=== PATIENT | female | born 2000 | race Caucasian/White ===

== ENCOUNTER 2019-05-23 00:21 | Inpatient (IN) ==
[2019-05-23 01:19] LABS: Basophils # (auto) 0.02 K/uL (0-0.2); Basophils % (auto) 0.3 %; Eosinophils # (auto) 0.07 K/uL (0-0.5); Eosinophils % (auto) 0.9 %; Hematocrit (blood only) 40.9 % (37-47); Immature Granulocytes # (auto) 0.02 K/uL (0.00-0.02); Immature Granulocytes % (auto) 0.3 %; Lymphocytes # (auto) 2.24 K/uL (1.2-3.4); Mean Corpuscular Hemoglobin 32.1 pg (25-34); Mean Corpuscular Hgb Conc 34.2 g/dL (32-36); Mean Corpuscular Volume 93.8 fL (80-100); Mean Platelet Volume 9.9 fL (7.4-10.4); Neutrophils # (auto) 4.84 K/uL (1.4-6.5); Neutrophils % (auto) 60.5 %; Platelet Count 309 K/uL (130-400); RDW Coefficient of Variation 12.3 % (11.5-14.5); Red Blood Count 4.36 M/uL (4.2-5.4); White Blood Count 7.99 K/uL (4.8-10.8)
[2019-05-23 01:31] LABS: Appearance Urine Turbid (Clear); Bacteria Urine Automated 2+ (Negative); Bilirubin Urine Negative (Negative); Blood Urine 3+ (Negative); Color Urine Yellow; Epithelial Cell Urine Auto >30 /lpf (0-5); Glucose Urine UA Negative (Negative); Ketones Urine Negative (Negative); Leukocyte Esterase Urine 3+ (Negative); Nitrite Urine Negative (Negative); Specific Gravity Urine 1.024 (1.000-1.030); Urobilinogen Urine Negative (Negative); WBC Urine Automated >30 /hpf (0-5)
[2019-05-23 01:39] LABS: Albumin Level 4.2 gm/dl (3.4-5.0); BUN Creatinine Ratio 19.7 (10-20); Calcium 9.5 mg/dl (8.5-10.1); Creatinine Clr Calc Pharmacy 75.2 ml/min; Est GFR (African American) 135.2; Est GFR (Non-African American) 116.6; Potassium 4.7 mmol/L (3.5-5.1)
[2019-05-23 01:40] LABS: Protein Urine Negative (Negative); Sulfosalicylic Acid Urine Negative (Negative)
[2019-05-23 01:41] LABS: Cast Urine Automated 0 /lpf (0-5)
[2019-05-23 01:50] LABS: Acetaminophen < 2 ug/ml (10-30); Albumin Globulin Ratio 1.1 (0.9-2); Bilirubin,Total 0.4 mg/dl (0.2-1); Globulin 3.7 gm/dl (2.5-4.0); Salicylate < 1.7 mg/dl (2.8-20); Thyroid Stimulating Hormone 1.05 uIu/ml (0.300-4.500); Total Protein 7.9 gm/dl (6.4-8.2)
[2019-05-23 02:05] LABS: Amphetamines+Metham, Urine Neg (Neg); Barbiturates, Urine Neg (Neg); Benzodiazepine, Urine Neg (Neg); Cocaine, Urine Neg (Neg); MDMA (Ecstacy), Urine Neg (Neg); Methadone, Urine Neg (Neg); Opiate, Urine Neg (Neg); Phencyclidine, Urine Neg (Neg)
--- NOTE | 2019-05-23 02:18 | Emergency Department Note ---
Entered by Jacinto Burgos acting as a scribe for History of Present Illness General Chief complaint: Mental Health Evaluation Stated complaint: Mental Health Time Seen by Provider: 05/23/19 00:24 Source: patient and other (pattern worker) History of Present Illness Onset (ago): day(s) (yesterday) Location: head Pain Consistency: + other (worsening) Quality: + other (paranoia) Associated symptoms: + other (Positive for suicidal ideations, homicidal ideations, and right hand pain. Negative for any suicidal and homicidal plan.) The patient is a 18 year old female who presents to the emergency department with complaints of worsening paranoia beginning yesterday. Per pattern worker, the patient came into the emergency department yesterday for similar symptoms. She states that there was a plan for a 302 warrant, but she notes that the 302 was denied and that the patient was discharged home. The patient reports that her paranoia has gotten worse since she was discharged. She states that she called [facility] tonight because she was having suicidal and homicidal ideations. She notes that she does not have any suicidal or homicidal plans. She reports that her paranoia has gotten worse, and she states that people are plotting against her. Per pattern worker, the patient has not showered for five days. The patient notes that she punched a wall at home today because she was pissed off. She reports that she is now having right hand pain. She states that she last used meth 2-3 days ago. Home Medications Home Medications Medication Instructions Recorded Confirmed Type No Known Home Medications 05/22/19 05/23/19 History Allergies Allergy/AdvReac Type Severity Reaction Status Date / Time No Known Allergies Allergy Verified 05/22/19 01:43 Past Med/Surg History Medical History (Updated 05/23/19 @ 02:14 by Jacinto Burgos) ADHD (attention deficit hyperactivity disorder) (Chronic) Altered mental status (Acute) Amphetamine misuse (Acute) Anxiety Bipolar disorder Depression Mood disorder (Acute) Polysubstance abuse (Acute) Thought disorder (Acute) Family History (Updated 05/22/19 @ 01:22 by Jacinto Burgos) Other No significant family history Social History (Updated 05/23/19 @ 00:52 by Jacinto Burgos) Preferred Language: Finnish Communication Ability: Effective [employer] Required: No Beliefs That Will Affect Care: None Current Living Situation: Family Feels Safe at Home: No Smoking Status: Current every day smoker Tobacco Type: cigarettes ; Hx Alcohol Use: No Hx Substance Use: Yes substance use type: methamphetamine Review of Systems See HPI for pertinent positives & negatives. and A total of 10 systems reviewed and were otherwise negative Physical Exam Vital Signs Vital Signs - 24 hr 05/23/19 00:13 05/23/19 02:09 Temperature 37 C Temperature Source Oral Pulse Rate 103 H Pulse Rate [Left Finger] 102 H Respiratory Rate 20 24 Respiratory Effort / Characteristics Normal for Patient Normal for Patient Blood Pressure 117/81 Blood Pressure [Left Arm] 104/63 Blood Pressure Mean 93 Blood Pressure Mean [Left Arm] 76 Blood Pressure Position Sitting Blood Pressure Position [Left Arm] Lying Pulse Oximetry 98 96 Oxygen Delivery Method Room Air Room Air Sepsis Recent Fever Within 48 Hours No Sepsis Action Taken by Nursing No Action Required General: Appears acutely paranoid similar to the evaluation from last night. Making suicidal and homicidal statements during evaluation. HEENT: Head - normocephalic and atraumatic Pupils are equal, round, and reactive to light. Extraocular eye muscles are intact, and sclera are anicteric. Nose - moist nasal mucosa without discharge. Mouth - moist buccal mucosa. Oropharynx is nonerythematous and there is no tonsillar exudate or edema noted. Neck: Supple; no thyromegaly or cervical lymphadenopathy Heart: Regular rhythm and tachycardic. There is a normal S1 and S2 with no murmurs, clicks, or gallops appreciated. Lungs: Clear to auscultation bilaterally with no wheezes, rales, or rhonchi. Abdomen: Soft, completely nontender, nondistended, with good bowel sounds. There are no palpable pulsatile masses or hepatosplenomegaly. There is no guarding, rigidity, or rebound noted. Extremities: No evidence of cyanosis, clubbing, or edema. There are easily palpable peripheral pulses. Contusion to right base of index finger. Skin: warm and dry with good turgor and no rashes. Psych: The patient appears acutely paranoid. She is screaming out that she is having homicidal and suicidal thoughts. She states that the thoughts just will not stop. Course Course 0030: The patient was evaluated in room A7. A complete history and physical exam was performed. 3 S. requested that the laboratory studies done last night were repeated. 0236: The psych telephonic case manager made a referral for [address] [place] [address]. 0253: The 302 was signed and the patient was accepted to [address] [place] [address]. The patient will be evaluated in [address] [place] [address] for further management. Medical Decision Making Differential Diagnosis Differential diagnoses include: acute paranoia, suicidal ideation, homicidal ideation, drug abuse, and through disorder. Medical Records Attestation: I reviewed the patient's medical records. Home Medications Current Medication List: was personally reviewed by me Laboratory Data Attestation: I reviewed the patient's lab results. Result diagrams: 05/23/19 01:07 05/23/19 01:07 Lab Results 05/23/19 05/23/19 05/23/19 Range/Units 00:28 00:28 01:07 WBC 7.99 (4.8-10.8) K/uL RBC 4.36 (4.2-5.4) M/uL Hgb 14.0 (12.0-16.0) g/dL Hct 40.9 (37-47) % MCV 93.8 (80-100) fL MCH 32.1 (25-34) pg MCHC 34.2 (32-36) g/dL RDW Std Deviation 42.0 (36.4-46.3) fL RDW Coeff of Maye 12.3 (11.5-14.5) % Plt Count 309 (130-400) K/uL MPV 9.9 (7.4-10.4) fL Immature Gran % (Auto) 0.3 % Neut % (Auto) 60.5 % Lymph % (Auto) 28.0 % [place] % (Auto) 10.0 % Eos % (Auto) 0.9 % Baso % (Auto) 0.3 % Immature Gran # (Auto) 0.02 (0.00-0.02) K/uL Neut # (Auto) 4.84 (1.4-6.5) K/uL Lymph # (Auto) 2.24 (1.2-3.4) K/uL [place] # (Auto) 0.80 H (0.11-0.59) K/uL Eos # (Auto) 0.07 (0-0.5) K/uL Baso # (Auto) 0.02 (0-0.2) K/uL Sodium (136-145) mmol/L Potassium (3.5-5.1) mmol/L Chloride (98-107) mmol/L Carbon Dioxide (21-32) mmol/L Anion Gap (3-11) BUN (7-18) mg/dl Creatinine (0.6-1.2) mg/dl Est Cr Clr Drug Dosing ml/min Est GFR ( Amer) Est GFR (Non-Af Amer) BUN/Creatinine Ratio (10-20) Glucose (70-99) mg/dl Calcium (8.5-10.1) mg/dl Total Bilirubin (0.2-1) mg/dl AST (15-37) U/L ALT (12-78) U/L Alkaline Phosphatase (45-117) U/L Total Protein (6.4-8.2) gm/dl Albumin (3.4-5.0) gm/dl Globulin (2.5-4.0) gm/dl Albumin/Globulin Ratio (0.9-2) TSH (0.300-4.500) uIu/ml Urine Color Yellow Urine Appearance Turbid A (Clear) Urine pH 8.0 H (4.5-7.5) Ur Specific [place] 1.024 (1.000-1.030) Urine Protein Negative (Negative) Urine Glucose (UA) Negative (Negative) Urine Ketones Negative (Negative) Urine Blood 3+ H (Negative) Urine Nitrite Negative (Negative) Urine Bilirubin Negative (Negative) Urine Urobilinogen Negative (Negative) Ur Leukocyte Esterase 3+ H (Negative) Urine WBC (Auto) >30 H (0-5) /hpf Urine RBC (Auto) 10-30 H (0-4) /hpf U Hyaline Cast (Auto) 0 (0-5) /lpf U Epithel Cells (Auto) >30 H (0-5) /lpf Urine Bacteria (Auto) 2+ H (Negative) Urine Yeast Present A (None Prsent) Salicylates (2.8-20) mg/dl Urine Opiates Screen Neg (Neg) Ur Methadone, Qual Neg (Neg) Acetaminophen (10-30) ug/ml Urine Barbiturates Neg (Neg) Ur Phencyclidine (PCP) Neg (Neg) U Amphetamin/Meth Scrn Neg (Neg) MDMA (Ecstasy) Screen Neg (Neg) U Benzodiazepines Scrn Neg (Neg) Ur Cocaine Metabolite Neg (Neg) U Marijuana (THC) Screen Neg (Neg) Ethyl Alcohol mg/dL (0-3) mg/dl 05/23/19 05/23/19 05/23/19 Range/Units 01:07 01:07 01:07 WBC (4.8-10.8) K/uL RBC (4.2-5.4) M/uL Hgb (12.0-16.0) g/dL Hct (37-47) % MCV (80-100) fL MCH (25-34) pg MCHC (32-36) g/dL RDW Std Deviation (36.4-46.3) fL RDW Coeff of Maye (11.5-14.5) % Plt Count (130-400) K/uL MPV (7.4-10.4) fL Immature Gran % (Auto) % Neut % (Auto) % Lymph % (Auto) % [place] % (Auto) % Eos % (Auto) % Baso % (Auto) % Immature Gran # (Auto) (0.00-0.02) K/uL Neut # (Auto) (1.4-6.5) K/uL Lymph # (Auto) (1.2-3.4) K/uL [place] # (Auto) (0.11-0.59) K/uL Eos # (Auto) (0-0.5) K/uL Baso # (Auto) (0-0.2) K/uL Sodium 139 (136-145) mmol/L Potassium 4.7 (3.5-5.1) mmol/L Chloride 107 (98-107) mmol/L Carbon Dioxide 26 (21-32) mmol/L Anion Gap 6.0 (3-11) BUN 15 (7-18) mg/dl Creatinine 0.74 (0.6-1.2) mg/dl Est Cr Clr Drug Dosing 75.2 ml/min Est GFR ( Amer) 135.2 Est GFR (Non-Af Amer) 116.6 BUN/Creatinine Ratio 19.7 (10-20) Glucose 86 (70-99) mg/dl Calcium 9.5 (8.5-10.1) mg/dl Total Bilirubin 0.4 (0.2-1) mg/dl AST 15 (15-37) U/L ALT 15 (12-78) U/L Alkaline Phosphatase 72 (45-117) U/L Total Protein 7.9 (6.4-8.2) gm/dl Albumin 4.2 (3.4-5.0) gm/dl Globulin 3.7 (2.5-4.0) gm/dl Albumin/Globulin Ratio 1.1 (0.9-2) TSH 1.050 (0.300-4.500) uIu/ml Urine Color Urine Appearance (Clear) Urine pH (4.5-7.5) Ur Specific [place] (1.000-1.030) Urine Protein (Negative) Urine Glucose (UA) (Negative) Urine Ketones (Negative) Urine Blood (Negative) Urine Nitrite (Negative) Urine Bilirubin (Negative) Urine Urobilinogen (Negative) Ur Leukocyte Esterase (Negative) Urine WBC (Auto) (0-5) /hpf Urine RBC (Auto) (0-4) /hpf U Hyaline Cast (Auto) (0-5) /lpf U Epithel Cells (Auto) (0-5) /lpf Urine Bacteria (Auto) (Negative) Urine Yeast (None Prsent) Salicylates < 1.7 L (2.8-20) mg/dl Urine Opiates Screen (Neg) Ur Methadone, Qual (Neg) Acetaminophen < 2 L (10-30) ug/ml Urine Barbiturates (Neg) Ur Phencyclidine (PCP) (Neg) U Amphetamin/Meth Scrn (Neg) MDMA (Ecstasy) Screen (Neg) U Benzodiazepines Scrn (Neg) Ur Cocaine Metabolite (Neg) U Marijuana (THC) Screen (Neg) Ethyl Alcohol mg/dL < 3.0 (0-3) mg/dl Blood Pressure Blood Pressure Findings: Normal blood pressure Blood Pressure Disposition: did not require urgent referral MDM Narrative The patient is a 18 year old female who presents to the emergency department with complaints of worsening paranoia beginning yesterday. The patient was seen here last night where a 302 was petitioned at that time for inability to care for herself and significant paranoia. Apparently this was declined this morning. The patient, again, called crisis tonight stating that she was acutely suicidal and homicidal. The patient was transported here to the hospital where a second 302 was petitioned and was signed off by [facility]. The patient meets criteria for admission to the hospital and was excepted to 3 S. Impression & Plan Suicidal ideation, Acute paranoia Discharge Plan Visit Data *Final* Discharge Date/Time: 05/23/19 04:33 Chief Complaint: Mental Health Evaluation Stated Complaint: Mental Health ED Provider: Emily Cortez Discharge Problem: Suicidal ideation, Acute paranoia Patient Disposition: Admitted As Inpatient Discharge Instructions Interventions: ED Discharge Assessment Last Done: 05/23/19 04:33 The scribe's documentation has been prepared under my direction and personally r eviewed by me in its entirety. I confirm that the note above accurately reflects all work, treatment, procedures, and medical decision making performed by me.
[2019-05-23] MEDS ORDERED: BISMUTH SUBSALICYLATE PER ML OMNICELL CHARGE PO PRN (04:49)
[2019-05-23] MEDS ORDERED: SODIUM CHLORIDE 0.65% NA SOLN 45 ML (OCEAN) PRN (04:49)
[2019-05-23] MEDS ORDERED: MAGNESIUM HYDROXIDE SUSP 30 ML UDC PO PRN (04:49)
[2019-05-23] MEDS ORDERED: ALUMINUM/MAGNESIUM SUSP 30 ML UDC PO PRN (04:49)
[2019-05-23] MEDS ORDERED: ACETAMINOPHEN 325 MG TAB PO PRN (04:49)
--- NOTE | 2019-05-23 08:25 | History & Physical ---
Date of Service May 23, 2019 Impression / Recommendations Impression 18-year-old female with an unclear past psychiatric history but multiple inpatient hospitalizations as a teenager, cannabis, alprazolam, and other substance abuse, and a recent history of methamphetamine abuse for the past 2 years who was admitted on an involuntary commitment after an episode of agitation at her mother and stepfather's home where she punched a wall and and said she wanted to . She was agitated in the ambulance and the ER, uncooperative with assessments, and attempted to run away. She has not been caring for herself, has not showered in at least 5 days, and demonstrated hallucinations and paranoia. Inpatient treatment is medically necessary due to the severity of her symptoms and risk for harm to herself if discharged prematurely. (1) Suicidal ideation: 05/23 -continue inpatient treatment on an involuntary commitment. -Continue private room due to agitation and erratic behavior. -Patient is excused from groups until she can demonstrate behavioral control. -Every 15 minute checks for safety. Present on Admission?: Yes (2) Acute paranoia: 05/23 -differential includes substance-induced (methamphetamine, possibly others), psychotic mood disorder, or primary thought disorder. -Order olanzapine 5 mg every 4 hours as needed psychosis. -Get collateral information from parents. Present on Admission?: Yes (3) Methamphetamine abuse: 05/23 -2 years of regular methamphetamine use, > 50% of days. Unknown if she has had IV drug use. Has also abused Xanax and cannabis. -When mental status improves, provide psychoeducation about the risks of substance abuse and recommendations for inpatient rehab. -Avoid prescription of controlled substances due to the high risk of abuse/misuse/negative outcomes Present on Admission?: Yes (4) Nicotine dependence: Offer patch and gum as needed for cravings. Refer for substance abuse treatment. Present on Admission?: Yes Risk Factors Assessment Male: No : Yes Mental Health Diagnoses: Yes Substance Use Disorders: Yes Previous Psychiatric Hospitalization: Yes Smoker: Yes Protective Factors Assessment : No Responsible for Young Children: No Employed: No Stable Relationships: No Supportive Family: Yes Good Rapport with Provider: No Psychiatric History Identifying Data ALEJANDRO BISHOP is a 18-year-old F who currently lives in [place] with mother and step father, has a history of methamphetamine abuse, and was admitted on 05/23/19 02:53 on a 302 involuntary commitment for psychosis and suicidal ideation. Chief Complaint "Go away". History of Present Illness Per records, the patient was seen in the ER twice in a 24-hour period, on 05/22/2019 and again 05/23/2019. She initially presented after calling crisis with paranoia, auditory hallucinations, and seeing shadowy figures. It was reported that she lived with her mother and stepfather, who were concerned for her safety, and she indicated she was willing for inpatient treatment. Her drug screen was positive for amphetamine/methamphetamine. She was agitated and pacing in the ER, and received Lorazepam 1 mg IM. She then became sedated and confused. A 302 petition was completed and the delegate contacted, but they declined the petition stating her symptoms were due to methamphetamine abuse. The patient's mental status improved in the ER, and she refused recommendations for mental health or substance abuse treatment. Her mother and stepfather were contacted and picked her up from the emergency room. She then re-presented to the emergency room less than 24 hours later with paranoia and suicidal ideation, again on referral from a [facility] crisis assessment at her mother's home. Per the 302 petition was was completed by the [facility] mobile worker, the patient made repeated statements that she wanted to , and said she would not disclose her plan, but there were many ways. She was hallucinating, talking to people who were not present in the room, and paranoid. She had not been bathing as she feared that somebody was going to hurt her. She was poorly cooperative with the assessment in the ER, repeatedly screaming that she did not want to live. She punched a wall several times. Per EMS assessment, the patient was laughing inappropriately, and rapidly became angry and punched a wall. She was pacing, agitated, and inconsolable, stating that she was going crazy, and was hostile towards staff. At one point she fell on the ground and was crying uncontrollably, and while in the ambulance, ripped off her blood pressure cuff and pulse ox, so was restrained to the stretcher. When she arrived in the ER and they removed straps from the stretcher, she attempted to get up and run away. She reported worsening paranoia, thoughts that people were plotting against her, and had called [facility] because she was having suicidal and homicidal ideation. She had not showered for 5 days because she was fearful, and punched a wall at her mother's house because she was angry. She reported last use of meth was 2-3 days ago. Although she reported a history of mental health issues, she denied being in treatment or taking any medications. On exam, she was agitated, screaming, crying, and paranoid. She was admitted on an involuntary commitment, and placed in a medically necessary private room. She was uncooperative with the admission assessments. On my assessment, she was seen in her room, where she is in bed sleeping. She was very difficult to arouse, was irritable and uncooperative. She stated she did not want to talk, rolled over and covered her head with a blanket, and did not respond to further efforts to engage her. The assessment is limited by her inability/unwillingness to participate, and additional information was obtained from review of records. Past Psychiatric History Previous Psych History: Per review of the EMR, patient has been seen in the ER times in the past for mental health evaluations. In 12/2015, she was seen after an argument with her mother, as the patient wanted to stay at her father's house. He had just come into her life in the past month, and was allowing her to do whatever she wanted. She had been smoking marijuana and abusing prescription medication. She told her mother that she did not want to be here anymore, which her mother interpreted as suicidal statements. The patient stated what she meant was that she did not want to be at her mother's house, she did not want to follow her rules, and wanted to go to her father's. She was transferred to [facility] for inpatient treatment. She was seen in the ER 01/2016 for altered mental status, intoxication, and what was reported to be an accidental overdose. Her mother had picked her up at a fair and noted she was altered, with slurred speech and stumbling. She then became unresponsive in the car. She reported smoking marijuana and taking Xanax, and her drug screen was positive for methamphetamine. She then admitted to "smoking something." She was sedated in the ER so was monitored overnight, and when mental status improved, was discharged home. ER visit 05/2016, 1 week after discharge from [facility], after an argument with her mother with the patient was violent and throwing objects around the house. Mother called the police. She was being prescribed Vyvanse and sertraline, and drug screen was positive for marijuana. The patient and her mother both declined inpatient treatment, and she was discharged home Current Psychiatric Diagnosis: per patient she has been diagnosed with bipolar Outpatient Services: None currently Previous Psych Admissions: Per review of the ER records: [facility] -05/2016 [facility] -12/2015 Describe Attempts in the Past: unable to assess today, but pt did report to [facility] to crisis line Past Medication Trials: unknown -Per EMR, was on Vyvanse and sertraline in 2016 after hospitalization at [facility] Allergies Allergy/AdvReac Type Severity Reaction Status Date / Time No Known Allergies Allergy Verified 05/22/19 01:43 Home Medications Home Medications Medication Instructions Recorded Confirmed Type No Known Home Medications 05/22/19 05/23/19 History Family History Family Mental Health History Comment: unknown Alcohol History Hx of Alcohol Use Over the Past 12 Months: No Smoking Use Have You Smoked or Used Tobacco Products in the Last 30 Days: Yes tobacco type: cigarettes Smoking Status: Current every day smoker Smoking packs per day: 0.5 Substance History Hx of Prescription Med Misuse Over the Past 12 Months: No Hx of Over the Counter Med Misuse Over the Past 12 Months: No Hx of Inhalent Misuse Over the Past 12 Months: No Hx of Organic Substance Use Over the Past 12 Months: Yes (Cannabis use) Hx of Illegal Substances/Street Drug Use Over Past 12 Months: Yes (meth, 4 times/wk [id number]) Problems as a Result of Past Substance Use: Loss of Family Support Patient reported using meth and cannabis regularly. Personal History Living Arrangements: Home Living Arrangements Comments: Unsure where has been living recently ([place] per stepfather), but mother and step father, who live in [place], picked her up from the ER when discharged 05/22/19 Employment Status: Unemployed Marital Status: Single Beliefs That Will Affect Care: None Patient History Medical History (Updated 05/23/19 @ 09:20 by Jacqueline Snowden MD) ADHD (attention deficit hyperactivity disorder) (Chronic) Altered mental status (Acute) Amphetamine misuse (Acute) Anxiety Bipolar disorder Depression Methamphetamine abuse Mood disorder (Acute) Nicotine dependence Polysubstance abuse (Acute) Thought disorder (Acute) Family History (Updated 05/22/19 @ 01:22 by Jacinto Burgos) Other No significant family history Social History (Updated 05/23/19 @ 00:52 by Jacinto Burgos) Preferred Language: Croatian Communication Ability: Effective Teaching Specialists Required: No Beliefs That Will Affect Care: None Current Living Situation: Family Feels Safe at Home: No Smoking Status: Current every day smoker Tobacco Type: cigarettes ; Hx Alcohol Use: No Hx Substance Use: Yes substance use type: methamphetamine Review of Systems Review of Systems: Unobtainable due to mental health condition (Patient uncooperative) Physical Exam Psychiatric: Sleeping, difficult to arouse, unwilling to answer questions Thin, disheveled and unkempt No eye contact, keeps eyes closed and covers face with the blanket Motor Behavior: no abnormal motor movements Minimal speech, irritated tone Affect: + irritable affect Unable to assess as would not engage in the assessment Unable to assess Unable to assess Insight: + poor insight Judgement: + poor judgement Vital Signs (Past 24 Hours): Last Vital Signs Temp 37 C 05/23/19 05:03 Pulse 89 05/23/19 05:03 Resp 18 05/23/19 05:03 BP 112/74 05/23/19 05:03 Pulse Ox 97 05/23/19 04:33 Exam Statement: A physical exam was performed in the ER prior to admission to the unit by Dr. Cortez. I accept that physical as correct/medical clearance for the inpatient physical exam. Results & Data Laboratory Results Laboratory Results - last 24 hr 05/23/19 05/23/19 05/23/19 00:28 00:28 01:07 WBC 7.99 RBC 4.36 Hgb 14.0 Hct 40.9 MCV 93.8 MCH 32.1 MCHC 34.2 RDW Std Deviation 42.0 RDW Coeff of Maye 12.3 Plt Count 309 MPV 9.9 Immature Gran % (Auto) 0.3 Neut % (Auto) 60.5 Lymph % (Auto) 28.0 Campbell % (Auto) 10.0 Eos % (Auto) 0.9 Baso % (Auto) 0.3 Immature Gran # (Auto) 0.02 Neut # (Auto) 4.84 Lymph # (Auto) 2.24 Campbell # (Auto) 0.80 H Eos # (Auto) 0.07 Baso # (Auto) 0.02 Sodium Potassium Chloride Carbon Dioxide Anion Gap BUN Creatinine Est Cr Clr Drug Dosing Est GFR ( Amer) Est GFR (Non-Af Amer) BUN/Creatinine Ratio Glucose Calcium Total Bilirubin AST ALT Alkaline Phosphatase Total Protein Albumin Globulin Albumin/Globulin Ratio TSH Urine Color Yellow Urine Appearance Turbid A Urine pH 8.0 H Ur Specific Argyle 1.024 Urine Protein Negative Urine Glucose (UA) Negative Urine Ketones Negative Urine Blood 3+ H Urine Nitrite Negative Urine Bilirubin Negative Urine Urobilinogen Negative Ur Leukocyte Esterase 3+ H Urine WBC (Auto) >30 H Urine RBC (Auto) 10-30 H U Hyaline Cast (Auto) 0 U Epithel Cells (Auto) >30 H Urine Bacteria (Auto) 2+ H Urine Yeast Present A Salicylates Urine Opiates Screen Neg Ur Methadone, Qual Neg Acetaminophen Urine Barbiturates Neg Ur Phencyclidine (PCP) Neg U Amphetamin/Meth Scrn Neg MDMA (Ecstasy) Screen Neg U Benzodiazepines Scrn Neg Ur Cocaine Metabolite Neg U Marijuana (THC) Screen Neg Ethyl Alcohol mg/dL 05/23/19 05/23/19 05/23/19 01:07 01:07 01:07 WBC RBC Hgb Hct MCV MCH MCHC RDW Std Deviation RDW Coeff of Maye Plt Count MPV Immature Gran % (Auto) Neut % (Auto) Lymph % (Auto) Campbell % (Auto) Eos % (Auto) Baso % (Auto) Immature Gran # (Auto) Neut # (Auto) Lymph # (Auto) Campbell # (Auto) Eos # (Auto) Baso # (Auto) Sodium 139 Potassium 4.7 Chloride 107 Carbon Dioxide 26 Anion Gap 6.0 BUN 15 Creatinine 0.74 Est Cr Clr Drug Dosing 75.2 Est GFR ( Amer) 135.2 Est GFR (Non-Af Amer) 116.6 BUN/Creatinine Ratio 19.7 Glucose 86 Calcium 9.5 Total Bilirubin 0.4 AST 15 ALT 15 Alkaline Phosphatase 72 Total Protein 7.9 Albumin 4.2 Globulin 3.7 Albumin/Globulin Ratio 1.1 TSH 1.050 Urine Color Urine Appearance Urine pH Ur Specific Arg[place] Urine Protein Urine Glucose (UA) Urine Ketones Urine Blood Urine Nitrite Urine Bilirubin Urine Urobilinogen Ur Leukocyte Esterase Urine WBC (Auto) Urine RBC (Auto) U Hyaline Cast (Auto) U Epithel Cells (Auto) Urine Bacteria (Auto) Urine Yeast Salicylates < 1.7 L Urine Opiates Screen Ur Methadone, Qual Acetaminophen < 2 L Urine Barbiturates Ur Phencyclidine (PCP) U Amphetamin/Meth Scrn MDMA (Ecstasy) Screen U Benzodiazepines Scrn Ur Cocaine Metabolite U Marijuana (THC) Screen Ethyl Alcohol mg/dL < 3.0 Current Inpatient Medications Current Inpatient Medications: Current Inpatient Medications Acetaminophen (Tylenol) 650 mg PO Q4H PRN PRN Reason: Headache or Minor Fever Stop: 06/22/19 04:48 Al Hydrox/Mg Hydrox/Simethicone (Maalox) 30 ml PO Q4H PRN PRN Reason: GI Upset Stop: 06/22/19 04:48 Bismuth Subsalicylate (Kaopectate) 15 ml PO PRN PRN PRN Reason: Loose Stool Stop: 06/22/19 04:48 Hydroxyzine HCl (Vistaril) 50 mg PO HSZ PRN PRN Reason: Insomnia Stop: 06/22/19 04:52 Hydroxyzine HCl (Vistaril) 25 mg PO Q4H PRN PRN Reason: Anxiety Stop: 06/22/19 04:48 Magnesium Hydroxide (Milk Of Magnesia) 30 ml PO DAILY PRN PRN Reason: Constipation Stop: 06/22/19 04:48 Miscellaneous (Remove Nicoderm Patch) 1 ea N/A [id number] [facility] Stop: 06/22/19 08:58 Nicotine (Nicoderm Cq) 14 mg TD QAM [facility] Stop: 06/22/19 08:59 Sodium Chloride ([place] Nasal) 1 - 2 sprays NA PRN PRN PRN Reason: Nasal Dryness/Congestion Stop: 06/22/19 04:48
[2019-05-23] MEDS ORDERED: OLANZapine 10 MG/2.1 ML SDV IM PRN (11:45)
[2019-05-23] MEDS: NICOTINE 14 MG/24 HR PATCH TD SCH (12:30)
[2019-05-23] MEDS: OLANZAPINE ZYDIS 5 MG ORALLY DIS. TAB PO PRN (13:52)
--- NOTE | 2019-05-24 08:59 | Psychiatric Progress Note ---
Date of Service May 24, 2019 Impression / Recommendations Impression 18-year-old female with an unclear past psychiatric history but multiple inpatient hospitalizations as a teenager, cannabis, alprazolam, and other substance abuse, and a recent history of methamphetamine abuse for the past 2 years who was admitted on an involuntary commitment after an episode of agitation at her mother and stepfather's home where she punched a wall and and said she wanted to . She was agitated in the ambulance and the ER, uncooperative with assessments, and attempted to run away. She has not been caring for herself, has not showered in at least 5 days, and demonstrated hallucinations and paranoia. She has been uncooperative here, has refused to participate in assessments, cannot tolerate more than 1 or 2 questions before becoming agitated and aggressive, is not able to participate in groups or therapy, and has refused to sign releases for her family, schedule a family meeting, or talk about her presenting symptoms. As we have been unable to adequately assess her risk, let alone mitigate it, we will file for a 303 involuntary commitment to be held tomorrow. Inpatient treatment is medically necessary due to the severity of her symptoms and risk for harm to herself if discharged prematurely. (1) Suicidal ideation: 05/23 -continue inpatient treatment on an involuntary commitment. -Continue private room due to agitation and erratic behavior. -Patient is excused from groups until she can demonstrate behavioral control. -Every 15 minute checks for safety. (2) Acute paranoia: 05/23 -differential includes substance-induced (methamphetamine, possibly others), psychotic mood disorder, or primary thought disorder. -Order olanzapine 5 mg every 4 hours as needed psychosis. -Get collateral information from parents. 05/24 -diagnosis psychosis NOS. Differential as above. Patient remains easily agitated and labile, cannot rule out a mood component such as bipolar disorder with psychosis. She is not able to engage in the interview or tolerate interactions with others, has been agitated and throwing items around her room, and has not even been able to complete the admission assessment, let alone appropriate discharge planning. We will therefore file for a 303 commitment with a hearing tomorrow. -Schedule olanzapine 5 mg at bedtime, and continue as needed's. She will need fasting labs ordered when she is calmer and more cooperative. -Order safety tray due to episodes of agitation and aggression. Continue private room and use of the JAMEEL. She is excused from groups due to behavioral dyscontrol. Present on Admission?: Yes (3) Mood disorder: 05/24 -past history unclear. Differential includes bipolar 1 with psychosis, depression with psychosis, substance-induced mood disorder, and personality disorder. It appears she has a history of oppositional and defiant behavior as an adolescent. She is refusing to sign a release for her parents, or to allow visits, and we have not been able to get collateral from them or to determine previous episodes of care to get records. Present on Admission?: Yes (4) Methamphetamine abuse: 05/23 -2 years of regular methamphetamine use, > 50% of days. Unknown if she has had IV drug use. Has also abused Xanax and cannabis. -When mental status improves, provide psychoeducation about the risks of substance abuse and recommendations for inpatient rehab. -Avoid prescription of controlled substances due to the high risk of abuse/misuse/negative outcomes (5) Nicotine dependence: Offer patch and gum as needed for cravings. Refer for substance abuse treatment. Risk Factors Assessment Male: No : Yes Mental Health Diagnoses: Yes Substance Use Disorders: Yes Previous Psychiatric Hospitalization: Yes Smoker: Yes Protective Factors Assessment : No Responsible for Young Children: No Employed: No Stable Relationships: No Supportive Family: Yes Good Rapport with Provider: No Interval History Identifying Information ALEJANDRO BISHOP is a 18-year-old F who currently lives in [place] with mother and step father, has a history of methamphetamine abuse, and was admitted on 05/23/19 02:53 on a 302 involuntary commitment for psychosis and suicidal ideation. Chief Complaint "I want to leave, I brought myself into the hospital!" Review of Systems Notes Attempted review of systems, patient unable to participate due to agitation and uncooperativeness. Sleep Information Total Hours of Sleep: 7 Sleep Comments: pt on q-15 minute checks Meal Information Percent Meal Consumed - Breakfast: 0 Percent Meal Consumed - Lunch: 0 Percent Meal Consumed - Dinner: 0 Subjective Subjective Patient was seen & assessed and interval progress reviewed with nursing and social work. Staff report she was in bed most of the day and night, refusing to come out for meals, nicotine patch, and participate in assessments. Her mother presented to the front end mechanic requesting to visit with her, and the patient refused to sign a release or allow the visit unless her mother was taking her home immediately. In the afternoon, she had an episode of agitation and yelling in her room, was throwing items around the room, stating she did not know where she was or why she was here. She made comments that "they are going to kill me here or if not I can't do anything because I am stuck." She was offered and accepted a as needed of olanzapine Zydis 5 mg. She came out of her room and ate last night, but did not attend or participate in any groups. She has not signed releases of information for her family. Multiple attempts were made to assess her today, and she was asleep in her room and unarousable/refusing to respond to questions initially. She would only open her eyes, rollover and mumble incoherently. When she was informed that if we were unable to engage her in treatment or even talk to her about her reasons for hospitalization and plans moving forward, we would need to pursue a 303 involuntary commitment, she immediately opened her eyes and began speaking. She stated that she wants to leave, and should be allowed to because she "brought myself in." She says she is here for "2 days of depression," but does not need treatment and repeatedly states "I am self talking happy, I functioning well of life, so happy I am here" and loud voice with sarcastic tone. She says her plan is to go live at her mother's, and when asked to sign a release so that we can have a meeting with her mother, she demands to leave and start swearing and yelling. When asked what she is willing to do to address her substance use, she denies that she uses drugs. She repeatedly demands that this physician leave the room, yells, and swears. She escalated multiple times, yelling angrily, and was poorly responsive to attempts to verbally de-escalate her. After demanding multiple times that I leave the room, she was informed that as we could not assess her presenting symptoms, let alone develop an appropriate discharge plan, but I would file for a 303 involuntary commitment with a hearing to be held tomorrow. She repeatedly yelled, "I talked to you! Jun it on the paper!" And then began screaming extremely loudly. Staff responded and were able to de-escalate her. Physical Exam Psychiatric Thin white female appearing older than her stated age. Casually dressed, limited grooming and hygiene. Nose piercing, short dyed blonde hair that is unkempt. Lying in bed in no acute distress, uncooperative with the assessment. Opens eyes briefly, but then closes them and transfer back to this physician. Initially refuses to answer questions and only mumbles incoherently, but began speaking loudly, yelling, with frequent expletives. Affect is labile, vacillating from unresponsive to agitated and hostile. Eye contact initially poor, keeps eyes closed, later opens eyes, and became psychomotorically agitated, sitting up in bed and thrashing about. She was uncooperative with the assessment and could not assess presence of suicidal and homicidal thoughts that she would not answer. Assessment is limited by patient's refusal to cooperate. Insight and judgment are impaired, impulse control is poor. Vital Signs (Past 24 Hours) Last Vital Signs Temp 37 C 05/23/19 05:03 Pulse 89 05/23/19 05:03 Resp 18 05/23/19 05:03 BP 112/74 05/23/19 05:03 Pulse Ox 97 05/23/19 04:33 Results & Data Current Inpatient Medications Current Inpatient Medications: Current Inpatient Medications Acetaminophen (Tylenol) 650 mg PO Q4H PRN PRN Reason: Headache or Minor Fever Stop: 06/22/19 04:48 Al Hydrox/Mg Hydrox/Simethicone (Maalox) 30 ml PO Q4H PRN PRN Reason: GI Upset Stop: 06/22/19 04:48 Bismuth Subsalicylate (Kaopectate) 15 ml PO PRN PRN PRN Reason: Loose Stool Stop: 06/22/19 04:48 Hydroxyzine HCl (Vistaril) 50 mg PO HSZ PRN PRN Reason: Insomnia Stop: 06/22/19 04:52 Hydroxyzine HCl (Vistaril) 25 mg PO Q4H PRN PRN Reason: Anxiety Stop: 06/22/19 04:48 Magnesium Hydroxide (Milk Of Magnesia) 30 ml PO DAILY PRN PRN Reason: Constipation Stop: 06/22/19 04:48 Miscellaneous (Remove Nicoderm Patch) 1 ea N/A DAILY@0859 [facility] Stop: 06/22/19 08:58 Last Admin: 05/23/19 12:30 Dose: Not Given Documented by: Nicotine (Nicoderm Cq) 14 mg TD QAM NIYAH Stop: 06/22/19 08:59 Last Admin: 05/23/19 12:30 Dose: Not Given Documented by: Olanzapine (Zyprexa Zydis Od) 5 mg PO Q4H PRN PRN Reason: psychosis Stop: 06/22/19 11:44 Last Admin: 05/23/19 13:52 Dose: 5 mg Documented by: Olanzapine (Zyprexa) 5 mg IM Q4H PRN PRN Reason: psychosis or agitation Stop: 06/22/19 11:44 Sodium Chloride ([place] Nasal) 1 - 2 sprays NA PRN PRN PRN Reason: Nasal Dryness/Congestion Stop: 06/22/19 04:48 Mental Health & Subst Abuse Tx Therapist Name of Therapist: none Single Stayer Operator Name of Single Stayer Operator: none
[2019-05-24] MEDS: OLANZAPINE ZYDIS 5 MG ORALLY DIS. TAB PO PRN (10:38)
[2019-05-24] MEDS: NICOTINE 14 MG/24 HR PATCH TD SCH (10:39)
[2019-05-24] MEDS: OLANZAPINE ZYDIS 5 MG ORALLY DIS. TAB PO SCH (20:39)
--- NOTE | 2019-05-25 07:40 | Psychiatric Progress Note ---
Date of Service May 25, 2019 Impression / Recommendations Impression 18-year-old female with an unclear past psychiatric history but multiple inpatient hospitalizations at other facilities, self-report of bipolar disorder, cannabis, alprazolam, and other substance abuse, and a recent history of methamphetamine abuse for the past 2 years who was admitted on an involuntary commitment after an episode of agitation at her mother and stepfather's home where she punched a wall and and said she wanted to . She was agitated in the ambulance and the ER, uncooperative with assessments, and attempted to run away. She has not been caring for herself, has not showered in at least 8 days, and endorsed auditory and visual hallucinations and paranoia. She has been uncooperative here, has refused to participate in assessments, cannot tolerate more than 1 or 2 questions before becoming agitated and aggressive, is not able to participate in groups or therapy, and has refused to sign releases for her family or past episodes of treatment, schedule a family meeting, or talk about h er presenting symptoms. She is on 303 involuntary commitment as of today. Inpatient treatment is medically necessary due to the severity of her symptoms and risk for harm to herself if discharged prematurely. (1) Suicidal ideation: 05/23 -continue inpatient treatment on an involuntary commitment. -Continue private room due to agitation and erratic behavior. -Patient is excused from groups until she can demonstrate behavioral control. -Every 15 minute checks for safety. (2) Acute paranoia: 05/23 -differential includes substance-induced (methamphetamine, possibly others), psychotic mood disorder, or primary thought disorder. -Order olanzapine 5 mg every 4 hours as needed psychosis. -Get collateral information from parents. 05/24 -diagnosis psychosis NOS. Differential as above. Patient remains easily agitated and labile, cannot rule out a mood component such as bipolar disorder with psychosis. She is not able to engage in the interview or tolerate interactions with others, has been agitated and throwing items around her room, and has not even been able to complete the admission assessment, let alone appropriate discharge planning. We will therefore file for a 303 commitment with a hearing tomorrow. -Schedule olanzapine 5 mg at bedtime, and continue as needed's. She will need fasting labs ordered when she is calmer and more cooperative. -Order safety tray due to episodes of agitation and aggression. Continue private room and use of the JAMEEL. She is excused from groups due to behavioral dyscontrol. 05/25 -on a 303 commitment. -Patient remains uncooperative with attempts to assess her engagement in treatment. She has not attended any groups, or sign releases. Recommend ROIs for most recent inpatient hospitalization, family, and outpatient providers if she has any (none known at this point). -Continue olanzapine Zydis 5 mg at bedtime + prns. (3) Mood disorder: 05/24 -past history unclear. Differential includes bipolar 1 with psychosis, depression with psychosis, substance-induced mood disorder, and personality disorder. It appears she has a history of oppositional and defiant behavior as an adolescent. She is refusing to sign a release for her parents, or to allow visits, and we have not been able to get collateral from them or to determine previous episodes of care to get records. 05/25 -predominant mood is irritable, sleep excessive. Symptoms could represent mood disorder versus meth withdrawal; collateral from family would be helpful as patient remains uncooperative with assessments. (4) Methamphetamine abuse: 05/23 -2 years of regular methamphetamine use, > 50% of days. Unknown if she has had IV drug use. Has also abused Xanax and cannabis. -When mental status improves, provide psychoeducation about the risks of substance abuse and recommendations for inpatient rehab. -Avoid prescription of controlled substances due to the high risk of abuse/misuse/negative outcomes (5) Nicotine dependence: Offer patch and gum as needed for cravings. Refer for substance abuse treatment. Risk Factors Assessment Male: No : Yes Mental Health Diagnoses: Yes Substance Use Disorders: Yes Previous Psychiatric Hospitalization: Yes Smoker: Yes Protective Factors Assessment : No Responsible for Young Children: No Employed: No Stable Relationships: No Supportive Family: Yes Good Rapport with Provider: No Interval History Identifying Information ALEJANDRO BISHOP is a 18-year-old F who currently lives in [place] with mother and step father, has a history of methamphetamine abuse, and was admitted on 05/23/19 02:53 on a 302 involuntary commitment for psychosis and suicidal ideation. She is on a 303 involuntary commitment as of 05/25/2019. Chief Complaint "I don't want to talk". Review of Systems Sleep Information Total Hours of Sleep: 6.5 Sleep Comments: pt on q-15 minute checks Meal Information Percent Meal Consumed - Breakfast: 0 Percent Meal Consumed - Lunch: 50 Percent Meal Consumed - Dinner: 0 Subjective Subjective Patient was seen & assessed and interval progress reviewed with treatment team. Staff report patient continues to isolate in her room, has not attended groups, and has refused to sign releases for family or previous psychiatric treatment. She had an episode of agitation yesterday where she threw her mother on the floor, and received Zyprexa 5 mg. She has been unable to tolerate assessments or interactions with staff, quickly becoming agitated. She refused two meals yesterday, and ate only part of her lunch. She attended her 303 hearing today, sat with her eyes closed, stated she wanted to leave and stay at her mother's house, and offered no further testimony. She was later seen in her room, as she refused to come out to the interview room. She also refused to come out to eat breakfast, demanding that I bring her breakfast into her room for her. She was encouraged to start engaging in treatment and working towards discharge, as she stated this is her goal, and responded "I don't know, I don't want to talk. Get out of here." Physical Exam Psychiatric Orientation: alert; + uncooperative Apperance: + disheveled unkempt, short hair appears unwashed Eye Contact: + poor eye contact Motor Behavior: steady gait and station and no abnormal motor movements Minimal, irritated tone Affect: + irritable affect and + constricted affect Refused to answer questions about mood Thought Process: goal directed thought process Uncooperative with assessment Angry and hostile Refused to answer questions Refused to answer questions Refused to answer questions Cognition: language grossly intact Insight: + poor insight Judgement: + poor judgement Vital Signs (Past 24 Hours) Last Vital Signs Temp 37 C 05/23/19 05:03 Pulse 89 05/23/19 05:03 Resp 18 05/23/19 05:03 BP 112/74 05/23/19 05:03 Pulse Ox 97 05/23/19 04:33 Results & Data Current Inpatient Medications Current Inpatient Medications: Current Inpatient Medications Acetaminophen (Tylenol) 650 mg PO Q4H PRN PRN Reason: Headache or Minor Fever Stop: 06/22/19 04:48 Al Hydrox/Mg Hydrox/Simethicone (Maalox) 30 ml PO Q4H PRN PRN Reason: GI Upset Stop: 06/22/19 04:48 Bismuth Subsalicylate (Kaopectate) 15 ml PO PRN PRN PRN Reason: Loose Stool Stop: 06/22/19 04:48 Hydroxyzine HCl (Vistaril) 50 mg PO HSZ PRN PRN Reason: Insomnia Stop: 06/22/19 04:52 Hydroxyzine HCl (Vistaril) 25 mg PO Q4H PRN PRN Reason: Anxiety Stop: 06/22/19 04:48 Magnesium Hydroxide (Milk Of Magnesia) 30 ml PO DAILY PRN PRN Reason: Constipation Stop: 06/22/19 04:48 Miscellaneous (Remove Nicoderm Patch) 1 ea N/A DAILY@0859 [facility] Stop: 06/22/19 08:58 Last Admin: 05/24/19 10:38 Dose: Not Given Documented by: Nicotine (Nicoderm Cq) 14 mg TD QAM NIYAH Stop: 06/22/19 08:59 Last Admin: 05/24/19 10:39 Dose: Not Given Documented by: Olanzapine (Zyprexa Zydis Od) 5 mg PO Q4H PRN PRN Reason: psychosis Stop: 06/22/19 11:44 Last Admin: 05/24/19 10:38 Dose: 5 mg Documented by: Olanzapine (Zyprexa) 5 mg IM Q4H PRN PRN Reason: psychosis or agitation Stop: 06/22/19 11:44 Olanzapine (Zyprexa Zydis Od) 5 mg PO HS NIYAH Stop: 06/23/19 21:59 Last Admin: 05/24/19 20:39 Dose: 5 mg Documented by: Sodium Chloride ([place] Nasal) 1 - 2 sprays NA PRN PRN PRN Reason: Nasal Dryness/Congestion Stop: 06/22/19 04:48 Mental Health & Subst Abuse Tx Therapist Name of Therapist: none Building Maintenance Mechanic Name of Building Maintenance Mechanic: none
[2019-05-25] MEDS: NICOTINE 14 MG/24 HR PATCH TD SCH (09:05)
[2019-05-25] MEDS: OLANZAPINE ZYDIS 5 MG ORALLY DIS. TAB PO PRN (14:03)
[2019-05-25] MEDS: OLANZAPINE ZYDIS 5 MG ORALLY DIS. TAB PO SCH (22:05)
[2019-05-26] MEDS: NICOTINE 14 MG/24 HR PATCH TD SCH (12:29)
--- NOTE | 2019-05-26 13:22 | Psychiatric Progress Note ---
Date of Service May 26, 2019 Impression / Recommendations Impression 18-year-old female with an unclear past psychiatric history but multiple inpatient hospitalizations at other facilities, self-report of bipolar disorder, cannabis, alprazolam, and other substance abuse, and a recent history of methamphetamine abuse for the past 2 years who was admitted on an involuntary commitment after an episode of agitation at her mother and stepfather's home where she punched a wall and and said she wanted to . She was agitated in the ambulance and the ER, uncooperative with assessments, and attempted to run away. She has not been caring for herself, has not showered in at least 8 days, and endorsed auditory and visual hallucinations and paranoia. She has been uncooperative here, has refused to participate in assessments, cannot tolerate more than 1 or 2 questions before becoming agitated and aggressive, is not able to participate in groups or therapy, and has refused to sign releases for her family or past episodes of treatment, schedule a family meeting, or talk about h er presenting symptoms. She is on 303 involuntary commitment as of today. Inpatient treatment is medically necessary due to the severity of her symptoms and risk for harm to herself if discharged prematurely. (1) Suicidal ideation: 05/23 -continue inpatient treatment on an involuntary commitment. -Continue private room due to agitation and erratic behavior. -Patient is excused from groups until she can demonstrate behavioral control. -Every 15 minute checks for safety. (2) Acute paranoia: 05/23 -differential includes substance-induced (methamphetamine, possibly others), psychotic mood disorder, or primary thought disorder. -Order olanzapine 5 mg every 4 hours as needed psychosis. -Get collateral information from parents. 05/24 -diagnosis psychosis NOS. Differential as above. Patient remains easily agitated and labile, cannot rule out a mood component such as bipolar disorder with psychosis. She is not able to engage in the interview or tolerate interactions with others, has been agitated and throwing items around her room, and has not even been able to complete the admission assessment, let alone appropriate discharge planning. We will therefore file for a 303 commitment with a hearing tomorrow. -Schedule olanzapine 5 mg at bedtime, and continue as needed's. She will need fasting labs ordered when she is calmer and more cooperative. -Order safety tray due to episodes of agitation and aggression. Continue private room and use of the JAMEEL. She is excused from groups due to behavioral dyscontrol. 05/25 -on a 303 commitment. -Patient remains uncooperative with attempts to assess her engagement in treatment. She has not attended any groups, or sign releases. Recommend ROIs for most recent inpatient hospitalization, family, and outpatient providers if she has any (none known at this point). -Continue olanzapine Zydis 5 mg at bedtime + prns. 05/26 - more appropriately interactive today which likely suggests reduced paranoia - will add 2.5mg of standing olanzapine in AM - med well tolerated so far - encouraged her to demonstrated to us that she can take care of basic needs and tolerate stimulation out of room as she feels better (3) Mood disorder: 05/24 -past history unclear. Differential includes bipolar 1 with psychos is, depression with psychosis, substance-induced mood disorder, and personality disorder. It appears she has a history of oppositional and defiant behavior as an adolescent. She is refusing to sign a release for her parents, or to allow visits, and we have not been able to get collateral from them or to determine previous episodes of care to get records. 05/25 -predominant mood is irritable, sleep excessive. Symptoms could represent mood disorder versus meth withdrawal; collateral from family would be helpful as patient remains uncooperative with assessments. 05/26 - denies feeling depressed this AM (4) Methamphetamine abuse: 05/23 -2 years of regular methamphetamine use, > 50% of days. Unknown if she has had IV drug use. Has also abused Xanax and cannabis. -When mental status improves, provide psychoeducation about the risks of substance abuse and recommendations for inpatient rehab. -Avoid prescription of controlled substances due to the high risk of abuse/misuse/negative outcomes 05/26 - pt denies substance abuse as problem this AM. she very concretely states she has decided not to use nd therefore she is staying sober and does not need tx. (5) Nicotine dependence: Offer patch and gum as needed for cravings. Refer for substance abuse treatment. Risk Factors Assessment Male: No : Yes Mental Health Diagnoses: Yes Substance Use Disorders: Yes Previous Psychiatric Hospitalization: Yes Smoker: Yes Protective Factors Assessment : No Responsible for Young Children: No Employed: No Stable Relationships: No Supportive Family: Yes Good Rapport with Provider: No Interval History Identifying Information ALEJANDRO BISHOP is a 18-year-old F who currently lives in [place] with mother and step father, has a history of methamphetamine abuse, and was admitted on 05/23/19 02:53 on a 302 involuntary commitment for psychosis and suicidal ideation. She is on a 303 involuntary commitment as of 05/25/2019. Chief Complaint "I feel better so when can I go?". Review of Systems Notes denies cardiac or GI sx Sleep Information Total Hours of Sleep: 10 Sleep Comments: pt on q-15 minute checks Meal Information Percent Meal Consumed - Breakfast: 80 Percent Meal Consumed - Lunch: 0 Percent Meal Consumed - Dinner: 0 Nutrition Comment: per meal log Subjective Subjective Patient was seen & assessed and interval progress reviewed with treatment team. Patient on 303 involuntary commitment. Has continued to demonstrate a lot of agitated behavior such as throwing objects and screaming. Seems to have more difficulty interacting appropriately with female staff. Not attending any programming. Limited attention to self-care. Has been eating. On approach th is morning she reports that she is feeling better. Describes thoughts as "normal." She indicates perception that the olanzapine is helping her feel more calm. She denies need for substance abuse treatment. States that she is "staying sober and I am much better." Physical Exam Psychiatric Orientation: alert, cooperative and + guarded Apperance: + disheveled Eye Contact: + poor eye contact Motor Behavior: no psychomotor agitation Speech: normal rate/rhythm/volume of speech minimally spontanious Affect: + blunted affect (somewhat robotic); no labile affect "normal" Thought Process: + perseveration and + concrete thought process Thought Content: + preoccupation (wants to yumiko about discharge) Suicidal Thoughts: denies suicidal thoughts Homicidal Thoughts: denies homicidal thoughts Hallucinations: no auditory hallucinations, no visual hallucinations and no tactile hallucinations cannot r/o AVH. appears distracted at times Cognition: + attention not intact Insight: + poor insight Judgement: + poor judgement Vital Signs (Past 24 Hours) Last Vital Signs Temp 36.7 C 05/26/19 06:45 Pulse 74 05/26/19 06:45 Resp 16 05/26/19 06:45 BP 96/61 L 05/26/19 06:45 Pulse Ox 97 05/23/19 04:33 Results & Data Current Inpatient Medications Current Inpatient Medications: Current Inpatient Medications Acetaminophen (Tylenol) 650 mg PO Q4H PRN PRN Reason: Headache or Minor Fever Stop: 06/22/19 04:48 Al Hydrox/Mg Hydrox/Simethicone (Maalox) 30 ml PO Q4H PRN PRN Reason: GI Upset Stop: 06/22/19 04:48 Bismuth Subsalicylate (Kaopectate) 15 ml PO PRN PRN PRN Reason: Loose Stool Stop: 06/22/19 04:48 Hydroxyzine HCl (Vistaril) 50 mg PO HSZ PRN PRN Reason: Insomnia Stop: 06/22/19 04:52 Hydroxyzine HCl (Vistaril) 25 mg PO Q4H PRN PRN Reason: Anxiety Stop: 06/22/19 04:48 Magnesium Hydroxide (Milk Of Magnesia) 30 ml PO DAILY PRN PRN Reason: Constipation Stop: 06/22/19 04:48 Miscellaneous (Remove Nicoderm Patch) 1 ea N/A DAILY@0859 [facility] Stop: 06/22/19 08:58 Last Admin: 05/26/19 12:29 Dose: Not Given Documented by: Nicotine (Nicoderm Cq) [address] [facility] Stop: 06/22/19 08:59 Last Admin: 05/26/19 12:29 Dose: Not Given Documented by: Olanzapine (Zyprexa Zydis Od) 5 mg PO Q4H PRN PRN Reason: psychosis Stop: 06/22/19 11:44 Last Admin: 05/25/19 14:03 Dose: 5 mg Documented by: Olanzapine (Zyprexa) 5 mg IM Q4H PRN PRN Reason: psychosis or agitation Stop: 06/22/19 11:44 Olanzapine (Zyprexa Zydis Od) 5 mg PO HS NIYAH Stop: 06/23/19 21:59 Last Admin: 05/25/19 22:05 Dose: 5 mg Documented by: Sodium Chloride ([place] Nasal) 1 - 2 sprays NA PRN PRN PRN Reason: Nasal Dryness/Congestion Stop: 06/22/19 04:48 Mental Health & Subst Abuse Tx Therapist Name of Therapist: none Cardiopulmonary Specialist Name of Cardiopulmonary Specialist: none
[2019-05-26] MEDS: OLANZAPINE ZYDIS 5 MG ORALLY DIS. TAB PO PRN ×2 (13:41→18:10)
[2019-05-26] MEDS: OLANZAPINE ZYDIS 5 MG ORALLY DIS. TAB PO SCH (21:53)
[2019-05-27] MEDS: OLANZAPINE 2.5 MG TAB PO SCH (10:59)
[2019-05-27] MEDS: NICOTINE 14 MG/24 HR PATCH TD SCH (11:00)
--- NOTE | 2019-05-27 14:06 | Psychiatric Progress Note ---
Date of Service May 27, 2019 Impression / Recommendations Impression 18-year-old female with an unclear past psychiatric history but multiple inpatient hospitalizations at other facilities, self-report of bipolar disorder, cannabis, alprazolam, and other substance abuse, and a recent history of methamphetamine abuse for the past 2 years who was admitted on an involuntary commitment after an episode of agitation at her mother and stepfather's home where she punched a wall and and said she wanted to . She was agitated in the ambulance and the ER, uncooperative with assessments, and attempted to run away. She has not been caring for herself, has not showered in at least 8 days, and endorsed auditory and visual hallucinations and paranoia. She has been uncooperative here, has refused to participate in assessments, cannot tolerate more than 1 or 2 questions before becoming agitated and aggressive, is not able to participate in groups or therapy, and has refused to sign releases for her family or past episodes of treatment, schedule a family meeting, or talk about h er presenting symptoms. She is on 303 involuntary commitment as of today. Inpatient treatment is medically necessary due to the severity of her symptoms and risk for harm to herself if discharged prematurely. (1) Suicidal ideation: 05/23 -continue inpatient treatment on an involuntary commitment. -Continue private room due to agitation and erratic behavior. -Patient is excused from groups until she can demonstrate behavioral control. -Every 15 minute checks for safety. (2) Acute paranoia: 05/23 -differential includes substance-induced (methamphetamine, possibly others), psychotic mood disorder, or primary thought disorder. -Order olanzapine 5 mg every 4 hours as needed psychosis. -Get collateral information from parents. 05/24 -diagnosis psychosis NOS. Differential as above. Patient remains easily agitated and labile, cannot rule out a mood component such as bipolar disorder with psychosis. She is not able to engage in the interview or tolerate interactions with others, has been agitated and throwing items around her room, and has not even been able to complete the admission assessment, let alone appropriate discharge planning. We will therefore file for a 303 commitment with a hearing tomorrow. -Schedule olanzapine 5 mg at bedtime, and continue as needed's. She will need fasting labs ordered when she is calmer and more cooperative. -Order safety tray due to episodes of agitation and aggression. Continue private room and use of the JAMEEL. She is excused from groups due to behavioral dyscontrol. 05/25 -on a 303 commitment. -Patient remains uncooperative with attempts to assess her engagement in treatment. She has not attended any groups, or sign releases. Recommend ROIs for most recent inpatient hospitalization, family, and outpatient providers if she has any (none known at this point). -Continue olanzapine Zydis 5 mg at bedtime + prns. 05/26 - more appropriately interactive today which likely suggests reduced paranoia - will add 2.5mg of standing olanzapine in AM - med well tolerated so far - encouraged her to demonstrated to us that she can take care of basic needs and tolerate stimulation out of room as she feels better 05/27 -Affect remains labile -No improvement evident in her ability to care for herself outside of a structured environment. Basic goals reviewed such as spending time out of room, showering, interacting appropriately with others (3) Mood disorder: 05/24 -past history unclear. Differential includes bipolar 1 with psychosis, depression with psychosis, substance-induced mood disorder, and personality disorder. It appears she has a history of oppositional and defiant behavior as an adolescent. She is refusing to sign a release for her parents, or to allow visits, and we have not been able to get collateral from them or to determine previous episodes of care to get records. 05/25 -predominant mood is irritable, sleep excessive. Symptoms could represent mood disorder versus meth withdrawal; collateral from family would be helpful as patient remains uncooperative with assessments. 05/26 - denies feeling depressed this AM 05/27 -Patient continues to deny depression crying/wailing throughout majority of interview (4) Methamphetamine abuse: 05/23 -2 years of regular methamphetamine use, > 50% of days. Unknown if she has had IV drug use. Has also abused Xanax and cannabis. -When mental status improves, provide psychoeducation about the risks of substance abuse and recommendations for inpatient rehab. -Avoid prescription of controlled substances due to the high risk of abuse/misuse/negative outcomes 05/26 - pt denies substance abuse as problem this AM. she very concretely states she has decided not to use nd therefore she is staying sober and does not need tx. 05/27 -Denies that she feels in withdrawal. Again denies need for substance abuse treatment (5) Nicotine dependence: Offer patch and gum as needed for cravings. Refer for substance abuse treatment. Risk Factors Assessment Male: No : Yes Mental Health Diagnoses: Yes Substance Use Disorders: Yes Previous Psychiatric Hospitalization: Yes Smoker: Yes Protective Factors Assessment : No Responsible for Young Children: No Employed: No Stable Relationships: No Supportive Family: Yes Good Rapport with Provider: No Interval History Identifying Information ALEJANDRO BISHOP is a 18-year-old F who currently lives in [place] with mother and step father, has a history of methamphetamine abuse, and was admitted on 05/23/19 02:53 on a 302 involuntary commitment for psychosis and suicidal ideation. She is on a 303 involuntary commitment as of 05/25/2019. Chief Complaint "I want to go home!" Review of Systems Notes denies confusion or s/o withdrawal Sleep Information Total Hours of Sleep: 5.5 Sleep Comments: pt on q-15 minute checks Meal Information Percent Meal Consumed - Breakfast: 80 Percent Meal Consumed - Lunch: 100 Percent Meal Consumed - Dinner: 100 Nutrition Comment: per meal log Subjective Subjective Patient was seen & assessed and interval progress reviewed with treatment team. Staff report little interval change. Still refusing to sign releases. Not participating in unit programming. Intermittent yelling. Has been compliant with olanzapine. She is drowsy on approach awoken from sleep around 11 AM. She perseverative really focuses on discharge today states that we are not helping her here, that she is ready to go. She wails that she has "tried so hard" and what do we want from her? She again states that she could spend time out of her room and talk to people if she wanted to but she does not want to. She yells repeatedly that she is "not going to talk to retards. I am not a weirdo." Staff report no evidence of self-directed personal care. Physical Exam Psychiatric Orientation: + uncooperative Apperance: + disheveled Eye Contact: + poor eye contact Motor Behavior: + psychomotor retardation Loud, wailing, repetitive Affect: + labile affect Mood: + angry mood; no depressed mood Thought Process: + perseveration and + concrete thought process Thought Content: + preoccupation (Discharge) and + cognitive distortions Suicidal Thoughts: denies suicidal thoughts Hallucinations: no auditory hallucinations and no visual hallucinations Cognition: + attention not intact Insight: + poor insight Judgement: + poor judgement Vital Signs (Past 24 Hours) Last Vital Signs Temp 36.7 C 05/26/19 06:45 Pulse 74 05/26/19 06:45 Resp 16 05/26/19 06:45 BP 96/61 L 05/26/19 06:45 Pulse Ox 97 05/23/19 04:33 Results & Data Current Inpatient Medications Current Inpatient Medications: Current Inpatient Medications Acetaminophen (Tylenol) 650 mg PO Q4H PRN PRN Reason: Headache or Minor Fever Stop: 06/22/19 04:48 Al Hydrox/Mg Hydrox/Simethicone (Maalox) 30 ml PO Q4H PRN PRN Reason: GI Upset Stop: 06/22/19 04:48 Bismuth Subsalicylate (Kaopectate) 15 ml PO PRN PRN PRN Reason: Loose Stool Stop: 06/22/19 04:48 Hydroxyzine HCl (Vistaril) 50 mg PO HSZ PRN PRN Reason: Insomnia Stop: 06/22/19 04:52 Hydroxyzine HCl (Vistaril) 25 mg PO Q4H PRN PRN Reason: Anxiety Stop: 06/22/19 04:48 Magnesium Hydroxide (Milk Of Magnesia) 30 ml PO DAILY PRN PRN Reason: Constipation Stop: 06/22/19 04:48 Miscellaneous (Remove Nicoderm Patch) 1 ea N/A DAILY@0859 [facility] Stop: 06/22/19 08:58 Last Admin: 05/27/19 11:00 Dose: Not Given Documented by: Nicotine (Nicoderm Cq) 14 mg TD QAM NIYAH Stop: 06/22/19 08:59 Last Admin: 05/27/19 11:00 Dose: Not Given Documented by: Olanzapine (Zyprexa Zydis Od) 5 mg PO Q4H PRN PRN Reason: psychosis Stop: 06/22/19 11:44 Last Admin: 05/26/19 18:10 Dose: 5 mg Documented by: Olanzapine (Zyprexa) 5 mg IM Q4H PRN PRN Reason: psychosis or agitation Stop: 06/22/19 11:44 Olanzapine (Zyprexa Zydis Od) 5 mg PO HS NIYAH Stop: 06/23/19 21:59 Last Admin: 05/26/19 21:53 Dose: 5 mg Documented by: Olanzapine (Zyprexa) 2.5 mg PO QAM NIYAH Stop: 06/26/19 08:59 Last Admin: 05/27/19 10:59 Dose: 2.5 mg Documented by: Sodium Chloride ([place] Nasal) 1 - 2 sprays NA PRN PRN PRN Reason: Nasal Dryness/Congestion Stop: 06/22/19 04:48 Mental Health & Subst Abuse Tx Therapist Name of Therapist: none Installer Inspector Final Name of Installer Inspector Final: none
[2019-05-27] MEDS: OLANZAPINE ZYDIS 5 MG ORALLY DIS. TAB PO PRN (17:13)
[2019-05-27] MEDS: OLANZAPINE ZYDIS 5 MG ORALLY DIS. TAB PO SCH (21:19)
[2019-05-28] MEDS: NICOTINE 14 MG/24 HR PATCH TD SCH (09:45)
[2019-05-28] MEDS: OLANZAPINE 2.5 MG TAB PO SCH (09:45)
[2019-05-28] MEDS: OLANZAPINE ZYDIS 5 MG ORALLY DIS. TAB PO PRN ×2 (14:10→18:20)
--- NOTE | 2019-05-28 15:48 | Psychiatric Progress Note ---
Date of Service May 28, 2019 Impression / Recommendations Impression 18-year-old female with an unclear past psychiatric history but multiple inpatient hospitalizations at other facilities, self-report of bipolar disorder, cannabis, alprazolam, and other substance abuse, and a recent history of methamphetamine abuse for the past 2 years who was admitted on an involuntary commitment after an episode of agitation at her mother and stepfather's home where she punched a wall and and said she wanted to . She was agitated in the ambulance and the ER, uncooperative with assessments, and attempted to run away. She has not been caring for herself, has not showered in at least 8 days, and endorsed auditory and visual hallucinations and paranoia. She has been uncooperative here, has refused to participate in assessments, cannot tolerate more than 1 or 2 questions before becoming agitated and aggressive, is not able to participate in groups or therapy, and has refused to sign releases for her family or past episodes of treatment, schedule a family meeting, or talk about h er presenting symptoms. She is on 303 involuntary commitment as of today. Inpatient treatment is medically necessary due to the severity of her symptoms and risk for harm to herself if discharged prematurely. (1) Suicidal ideation: 05/23 -continue inpatient treatment on an involuntary commitment. -Continue private room due to agitation and erratic behavior. -Patient is excused from groups until she can demonstrate behavioral control. -Every 15 minute checks for safety. (2) Acute paranoia: 05/23 -differential includes substance-induced (methamphetamine, possibly others), psychotic mood disorder, or primary thought disorder. -Order olanzapine 5 mg every 4 hours as needed psychosis. -Get collateral information from parents. 05/24 -diagnosis psychosis NOS. Differential as above. Patient remains easily agitated and labile, cannot rule out a mood component such as bipolar disorder with psychosis. She is not able to engage in the interview or tolerate interactions with others, has been agitated and throwing items around her room, and has not even been able to complete the admission assessment, let alone appropriate discharge planning. We will therefore file for a 303 commitment with a hearing tomorrow. -Schedule olanzapine 5 mg at bedtime, and continue as needed's. She will need fasting labs ordered when she is calmer and more cooperative. -Order safety tray due to episodes of agitation and aggression. Continue private room and use of the JAMEEL. She is excused from groups due to behavioral dyscontrol. 05/25 -on a 303 commitment. -Patient remains uncooperative with attempts to assess her engagement in treatment. She has not attended any groups, or sign releases. Recommend ROIs for most recent inpatient hospitalization, family, and outpatient providers if she has any (none known at this point). -Continue olanzapine Zydis 5 mg at bedtime + prns. 05/26 - more appropriately interactive today which likely suggests reduced paranoia - will add 2.5mg of standing olanzapine in AM - med well tolerated so far - encouraged her to demonstrated to us that she can take care of basic needs and tolerate stimulation out of room as she feels better 05/27 -Affect remains labile -No improvement evident in her ability to care for herself outside of a structured environment. Basic goals reviewed such as spending time out of room, showering, interacting appropriately with others 05/28 - declined additional anxiety medication. reviewed target sx for zyprexa (3) Mood disorder: 05/24 -past history unclear. Differential includes bipolar 1 with psychosis, depression with psychosis, substance-induced mood disorder, and personality disorder. It appears she has a history of oppositional and defiant behavior as an adolescent. She is refusing to sign a release for her parents, or to allow visits, and we have not been able to get collateral from them or to determine previous episodes of care to get records. 05/25 -predominant mood is irritable, sleep excessive. Symptoms could represent mood disorder versus meth withdrawal; collateral from family would be helpful as patient remains uncooperative with assessments. 05/26 - denies feeling depressed this AM 05/27 -Patient continues to deny depression crying/wailing throughout majority of interview 05/28 - less labile but very difficult to engage - continue zyprexa unchanged (4) Methamphetamine abuse: 05/23 -2 years of regular methamphetamine use, > 50% of days. Unknown if she has had IV drug use. Has also abused Xanax and cannabis. -When mental status improves, provide psychoeducation about the risks of substance abuse and recommendations for inpatient rehab. -Avoid prescription of controlled substances due to the high risk of abuse/misuse/negative outcomes 05/26 - pt denies substance abuse as problem this AM. she very concretely states she has decided not to use nd therefore she is staying sober and does not need tx. 05/27 -Denies that she feels in withdrawal. Again denies need for substance abuse treatment (5) Nicotine dependence: Offer patch and gum as needed for cravings. Refer for substance abuse treatment. Risk Factors Assessment Male: No : Yes Mental Health Diagnoses: Yes Substance Use Disorders: Yes Previous Psychiatric Hospitalization: Yes Smoker: Yes Protective Factors Assessment : No Responsible for Young Children: No Employed: No Stable Relationships: No Supportive Family: Yes Good Rapport with Provider: No Interval History Identifying Information ALEJANDRO BISHOP is a 18-year-old F who currently lives in [place] with mother and step father, has a history of methamphetamine abuse, and was admitted on 05/23/19 02:53 on a 302 involuntary commitment for psychosis and suicidal ideation. She is on a 303 involuntary commitment as of 05/25/2019. Chief Complaint "Fine". Review of Systems Sleep Information Total Hours of Sleep: 7.25 Sleep Comments: pt on q-15 minute checks Meal Information Percent Meal Consumed - Breakfast: 100 Percent Meal Consumed - Lunch: 100 Percent Meal Consumed - Dinner: 100 Nutrition Comment: per meal log Subjective Subjective Patient was seen & assessed and interval progress reviewed with treatment team. Patient signed release of information for her mother and for case management referral. She tolerated a room change yesterday. She did shower. Patient remains minimally engaged otherwise. She makes minimal effort to speak with me this morning replying "fine" with a muffled soft, slightly irritated voice to nearly all of my questions. At the conclusion of the interview she pops her head off her pillow and asks for something for anxiety. She denies feeling overly sedated from the olanzapine. Physical Exam Psychiatric Orientation: + uncooperative Apperance: + disheveled Eye Contact: + poor eye contact Motor Behavior: + psychomotor retardation minimal Affect: + blunted affect fine Thought Process: + concrete thought process Suicidal Thoughts: denies suicidal thoughts Hallucinations: no auditory hallucinations and no visual hallucinations Cognition: + attention not intact Insight: + poor insight Judgement: + poor judgement Vital Signs (Past 24 Hours) Last Vital Signs Temp 36.8 C 05/28/19 06:32 Pulse 92 H 05/28/19 06:34 Resp 16 05/28/19 06:32 BP 94/58 L 05/28/19 06:34 Pulse Ox 97 05/23/19 04:33 Results & Data Current Inpatient Medications Current Inpatient Medications: Current Inpatient Medications Acetaminophen (Tylenol) 650 mg PO Q4H PRN PRN Reason: Headache or Minor Fever Stop: 06/22/19 04:48 Al Hydrox/Mg Hydrox/Simethicone (Maalox) 30 ml PO Q4H PRN PRN Reason: GI Upset Stop: 06/22/19 04:48 Bismuth Subsalicylate (Kaopectate) 15 ml PO PRN PRN PRN Reason: Loose Stool Stop: 06/22/19 04:48 Hydroxyzine HCl (Vistaril) 50 mg PO HSZ PRN PRN Reason: Insomnia Stop: 06/22/19 04:52 Hydroxyzine HCl (Vistaril) 25 mg PO Q4H PRN PRN Reason: Anxiety Stop: 06/22/19 04:48 Magnesium Hydroxide (Milk Of Magnesia) 30 ml PO DAILY PRN PRN Reason: Constipation Stop: 06/22/19 04:48 Miscellaneous (Remove Nicoderm Patch) 1 ea N/A DAILY@0859 [facility] Stop: 06/22/19 08:58 Last Admin: 05/28/19 09:45 Dose: Not Given Documented by: Nicotine (Nicoderm Cq) 14 mg TD QAM [facility] Stop: 06/22/19 08:59 Last Admin: 05/28/19 09:45 Dose: Not Given Documented by: Olanzapine (Zyprexa Zydis Od) 5 mg PO Q4H PRN PRN Reason: psychosis Stop: 06/22/19 11:44 Last Admin: 05/28/19 14:10 Dose: 5 mg Documented by: Olanzapine (Zyprexa) 5 mg IM Q4H PRN PRN Reason: psychosis or agitation Stop: 06/22/19 11:44 Olanzapine (Zyprexa Zydis Od) 5 mg PO HS NIYAH Stop: 06/23/19 21:59 Last Admin: 05/27/19 21:19 Dose: 5 mg Documented by: Olanzapine (Zyprexa) 2.5 mg PO QAM [facility] Stop: 06/26/19 08:59 Last Admin: 05/28/19 09:45 Dose: 2.5 mg Documented by: Sodium Chloride ([place] Nasal) 1 - 2 sprays NA PRN PRN PRN Reason: Nasal Dryness/Congestion Stop: 06/22/19 04:48 Mental Health & Subst Abuse Tx Therapist Name of Therapist: none Vice President Business Development Name of Vice President Business Development: none, reluctantly signed for [facility] referral based on mother's request Post Discharge Appointments Primary Care Physician Name Of Family Doctor: Dr. Thomas
[2019-05-28] MEDS: OLANZAPINE ZYDIS 5 MG ORALLY DIS. TAB PO SCH (22:17)
[2019-05-29] MEDS: OLANZAPINE 2.5 MG TAB PO SCH (09:12)
[2019-05-29] MEDS: NICOTINE 14 MG/24 HR PATCH TD SCH (09:12)
--- NOTE | 2019-05-29 09:30 | Psychiatric Progress Note ---
Date of Service May 29, 2019 Impression / Recommendations Impression 18-year-old female with an unclear past psychiatric history but multiple inpatient hospitalizations at other facilities, self-report of bipolar disorder, cannabis, alprazolam, and other substance abuse, and a recent history of methamphetamine abuse for the past 2 years who was admitted on an involuntary commitment after an episode of agitation at her mother and stepfather's home where she punched a wall and and said she wanted to . She was agitated in the ambulance and the ER, uncooperative with assessments, and attempted to run away. She has not been caring for herself, has not showered in at least 8 days, and endorsed auditory and visual hallucinations and paranoia. She has been uncooperative here, has refused to participate in assessments, cannot tolerate more than 1 or 2 questions before becoming agitated and aggressive, is not able to participate in groups or therapy, and has refused to sign releases for her family or past episodes of treatment, schedule a family meeting, or talk about her presenting symptoms. She is on 303 involuntary commitment as of today. Inpatient treatment is medically necessary due to the severity of her symptoms and risk for harm to herself if discharged prematurely. (1) Suicidal ideation: 05/23 -continue inpatient treatment on an involuntary commitment. -Continue private room due to agitation and erratic behavior. -Patient is excused from groups until she can demonstrate behavioral control. -Every 15 minute checks for safety. 05/29 -Patient denying ongoing suicidal ideation (2) Acute paranoia: 05/23 -differential includes substance-induced (methamphetamine, possibly others), psychotic mood disorder, or primary thought disorder. -Order olanzapine 5 mg every 4 hours as needed psychosis. -Get collateral information from parents. 05/24 -diagnosis psychosis NOS. Differential as above. Patient remains easily agitated and labile, cannot rule out a mood component such as bipolar disorder with psychosis. She is not able to engage in the interview or tolerate interactions with others, has been agitated and throwing items around her room, and has not even been able to complete the admission assessment, let alone appropriate discharge planning. We will therefore file for a 303 commitment with a hearing tomorrow. -Schedule olanzapine 5 mg at bedtime, and continue as needed's. She will need fasting labs ordered when she is calmer and more cooperative. -Order safety tray due to episodes of agitation and aggression. Continue private room and use of the JAMEEL. She is excused from groups due to behavioral dyscontrol. 05/25 -on a 303 commitment. -Patient remains uncooperative with attempts to assess her engagement in treatment. She has not attended any groups, or sign releases. Recommend ROIs for most recent inpatient hospitalization, family, and outpatient providers if she has any (none known at this point). -Continue olanzapine Zydis 5 mg at bedtime + prns. 05/26 - more appropriately interactive today which likely suggests reduced paranoia - will add 2.5mg of standing olanzapine in AM - med well tolerated so far - encouraged her to demonstrated to us that she can take care of basic needs and tolerate stimulation out of room as she feels better 05/27 -Affect remains labile -No improvement evident in her ability to care for herself outside of a structured environment. Basic goals reviewed such as spending time out of room, showering, interacting appropriately with others 05/28 - declined additional anxiety medication. reviewed target sx for zyprexa 05/29 -Patient requested and received as needed olanzapine yesterday x2 -Remains difficult to appreciate thought process and content due to her unwillingness to engage therapeutically. -Scheduled for family meeting with mother tomorrow and also being referred for case management services (3) Mood disorder: 05/24 -past history unclear. Differential includes bipolar 1 with psychosis, depression with psychosis, substance-induced mood disorder, and personality disorder. It appears she has a history of oppositional and defiant behavior as an adolescent. She is refusing to sign a release for her parents, or to allow visits, and we have not been able to get collateral from them or to determine previous episodes of care to get records. 05/25 -predominant mood is irritable, sleep excessive. Symptoms could represent mood disorder versus meth withdrawal; collateral from family would be helpful as patient remains uncooperative with assessments. 05/26 - denies feeling depressed this AM 05/27 -Patient continues to deny depression crying/wailing throughout majority of interview 05/28 - less labile but very difficult to engage - continue zyprexa unchanged (4) Methamphetamine abuse: 05/23 -2 years of regular methamphetamine use, > 50% of days. Unknown if she has had IV drug use. Has also abused Xanax and cannabis. -When mental status improves, provide psychoeducation about the risks of substance abuse and recommendations for inpatient rehab. -Avoid prescription of controlled substances due to the high risk of abuse/misuse/negative outcomes 05/26 - pt denies substance abuse as problem this AM. she very concretely states she has decided not to use nd therefore she is staying sober and does not need tx. 05/27 -Denies that she feels in withdrawal. Again denies need for substance abuse treatment 05/29 - VSS (5) Nicotine dependence: Offer patch and gum as needed for cravings. Refer for substance abuse treatment. Risk Factors Assessment Male: No : Yes Mental Health Diagnoses: Yes Substance Use Disorders: Yes Previous Psychiatric Hospitalization: Yes Smoker: Yes Protective Factors Assessment : No Responsible for Young Children: No Employed: No Stable Relationships: No Supportive Family: Yes Good Rapport with Provider: No Interval History Identifying Information ALEJANDRO BISHOP is a 18-year-old F who currently lives in [place] with mother and step father, has a history of methamphetamine abuse, and was admitted on 05/23/19 02:53 on a 302 involuntary commitment for psychosis and suicidal ideation. She is on a 303 involuntary commitment as of 05/25/2019. Chief Complaint "Can I go home? Then I just want to sleep". Review of Systems Sleep Information Total Hours of Sleep: 6.25 Sleep Comments: pt on q-15 minute checks Meal Information Percent Meal Consumed - Breakfast: 100 Percent Meal Consumed - Lunch: 100 Percent Meal Consumed - Dinner: 100 Nutrition Comment: per meal log Subjective Subjective Patient was seen & assessed and interval progress reviewed with treatment team. Patient remains isolative and poorly participatory on the unit. Family meeting with mother scheduled for tomorrow. Notably the patient was visited by an older male last evening who his behavior was inappropriate on the unit, appearing to attempt to intimidate the staff at times, giving variable names and identifying himself, and seemingly attempting to help the patient elope from the unit testing the doors after she had crawled below the nursing window. Patient is unwilling to discuss this today. States she is fine and just wants to sleep if she cannot leave. She yells to leave her alone in a childlike manner and turns away from me and will not engage in interview. Physical Exam Psychiatric Orientation: + guarded; + uncooperative Apperance: + disheveled Eye Contact: + poor eye contact Motor Behavior: + psychomotor retardation Minimal but clear Affect: + labile affect and + irritable affect "Fine" Thought Process: + concrete thought process Thought Content: + preoccupation (Discharge) Suicidal Thoughts: denies suicidal thoughts Insight: + poor insight Judgement: + poor judgement Vital Signs (Past 24 Hours) Last Vital Signs Temp 36.7 C 05/29/19 06:00 Pulse 91 H 05/29/19 06:00 Resp 16 05/29/19 06:00 BP 95/59 L 05/29/19 06:00 Pulse Ox 97 05/23/19 04:33 Results & Data Current Inpatient Medications Current Inpatient Medications: Current Inpatient Medications Acetaminophen (Tylenol) 650 mg PO Q4H PRN PRN Reason: Headache or Minor Fever Stop: 06/22/19 04:48 Al Hydrox/Mg Hydrox/Simethicone (Maalox) 30 ml PO Q4H PRN PRN Reason: GI Upset Stop: 06/22/19 04:48 Bismuth Subsalicylate (Kaopectate) 15 ml PO PRN PRN PRN Reason: Loose Stool Stop: 06/22/19 04:48 Hydroxyzine HCl (Vistaril) 50 mg PO HSZ PRN PRN Reason: Insomnia Stop: 06/22/19 04:52 Hydroxyzine HCl (Vistaril) 25 mg PO Q4H PRN PRN Reason: Anxiety Stop: 06/22/19 04:48 Last Admin: 05/28/19 17:37 Dose: 25 mg Documented by: Magnesium Hydroxide (Milk Of Magnesia) 30 ml PO DAILY PRN PRN Reason: Constipation Stop: 06/22/19 04:48 Miscellaneous (Remove Nicoderm Patch) 1 ea N/A DAILY@0859 [facility] Stop: 06/22/19 08:58 Last Admin: 05/29/19 09:12 Dose: Not Given Documented by: Nicotine (Nicoderm Cq) 14 mg TD QAM [facility] Stop: 06/22/19 08:59 Last Admin: 05/29/19 09:12 Dose: Not Given Documented by: Olanzapine (Zyprexa Zydis Od) 5 mg PO Q4H PRN PRN Reason: psychosis Stop: 06/22/19 11:44 Last Admin: 05/28/19 18:20 Dose: 5 mg Documented by: Olanzapine (Zyprexa) 5 mg IM Q4H PRN PRN Reason: psychosis or agitation Stop: 06/22/19 11:44 Olanzapine (Zyprexa Zydis Od) 5 mg PO HS NIYAH Stop: 06/23/19 21:59 Last Admin: 05/28/19 22:17 Dose: 5 mg Documented by: Olanzapine (Zyprexa) 2.5 mg PO QAM [facility] Stop: 06/26/19 08:59 Last Admin: 05/29/19 09:12 Dose: 2.5 mg Documented by: Sodium Chloride ([place] Nasal) 1 - 2 sprays NA PRN PRN PRN Reason: Nasal Dryness/Congestion Stop: 06/22/19 04:48 Mental Health & Subst Abuse Tx Therapist Name of Therapist: none Zoning Engineer Name of Zoning Engineer: none, reluctantly signed for [facility] referral based on mother's request Post Discharge Appointments Primary Care Physician Name Of Family Doctor: Dr. Thomas
[2019-05-29] MEDS: OLANZAPINE ZYDIS 5 MG ORALLY DIS. TAB PO PRN ×2 (12:41→17:56)
[2019-05-29] MEDS: OLANZAPINE ZYDIS 5 MG ORALLY DIS. TAB PO SCH (22:17)
[2019-05-30] MEDS: NICOTINE 14 MG/24 HR PATCH TD SCH (08:23)
[2019-05-30] MEDS: OLANZAPINE 2.5 MG TAB PO SCH (08:24)
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
[2019-05-30] MEDS: OLANZAPINE ZYDIS 5 MG ORALLY DIS. TAB PO PRN ×2 (12:52→18:32)
[2019-05-30] MEDS: OLANZAPINE ZYDIS 5 MG ORALLY DIS. TAB PO SCH (21:19)
[2019-05-31] MEDS: OLANZAPINE 2.5 MG TAB PO SCH (09:42)
[2019-05-31] MEDS: NICOTINE 14 MG/24 HR PATCH TD SCH (09:42)
--- NOTE | 2019-05-31 10:05 | Psychiatric Progress Note ---
Date of Service May 31, 2019 Impression / Recommendations Impression 18-year-old female with an unclear past psychiatric history but multiple inpatient hospitalizations at other facilities, self-report of bipolar disorder, cannabis, alprazolam, and other substance abuse, and a recent history of methamphetamine abuse for the past 2 years who was admitted on an involuntary commitment after an episode of agitation at her mother and stepfather's home where she punched a wall and and said she wanted to . She was agitated in the ambulance and the ER, uncooperative with assessments, and attempted to run away. She has not been caring for herself, has not showered in at least 8 days, and endorsed auditory and visual hallucinations and paranoia. She has been uncooperative here, has refused to participate in many assessments, and only recently has been able to tolerate brief superficial conversation without becoming acutely agitated. Pt did participate in a family meeting involving her mother. She was agreeable with signing ROIs to pursue referrals for outpatient treatment. She is on 303 involuntary commitment; with prior consideration to pursue an outpatient 304 commitment - patient is now willing to participate in outpatient psychiatric treatment after discharge. [facility] transplant case manager to come see patient on the unit today to initiate services. Inpatient treatment is medically necessary due to the severity of her symptoms and risk for harm to herself if discharged prematurely, prior to establishing concrete aftercare plan. (1) Suicidal ideation: 05/23 -continue inpatient treatment on an involuntary commitment. -Continue private room due to agitation and erratic behavior. -Patient is excused from groups until she can demonstrate behavioral control. -Every 15 minute checks for safety. 05/29 - 05/31 -Patient denying ongoing suicidal ideation (2) Acute paranoia: 05/23 -differential includes substance-induced (methamphetamine, possibly others), psychotic mood disorder, or primary thought disorder. -Order olanzapine 5 mg every 4 hours as needed psychosis. -Get collateral information from parents. 05/24 -diagnosis psychosis NOS. Differential as above. Patient remains easily agitated and labile, cannot rule out a mood component such as bipolar disorder with psychosis. She is not able to engage in the interview or tolerate interactions with others, has been agitated and throwing items around her room, and has not even been able to complete the admission assessment, let alone appropriate discharge planning. We will therefore file for a 303 commitment with a hearing tomorrow. -Schedule olanzapine 5 mg at bedtime, and continue as needed's. She will need fasting labs ordered when she is calmer and more cooperative. -Order safety tray due to episodes of agitation and aggression. Continue private room and use of the JAMEEL. She is excused from groups due to behavioral dyscontrol. 05/25 -on a 303 commitment. -Patient remains uncooperative with attempts to assess her engagement in treatment. She has not attended any groups, or sign releases. Recommend ROIs for most recent inpatient hospitalization, family, and outpatient providers if she has any (none known at this point). -Continue olanzapine Zydis 5 mg at bedtime + prns. 05/26 - more appropriately interactive today which likely suggests reduced paranoia - will add 2.5mg of standing olanzapine in AM - med well tolerated so far - encouraged her to demonstrated to us that she can take care of basic needs and tolerate stimulation out of room as she feels better 05/27 -Affect remains labile -No improvement evident in her ability to care for herself outside of a structured environment. Basic goals reviewed such as spending time out of room, showering, interacting appropriately with others 05/28 - declined additional anxiety medication. reviewed target sx for zyprexa 05/29 -Patient requested and received as needed olanzapine yesterday x2 -Remains difficult to appreciate thought process and content due to her unwillingness to engage therapeutically. -Scheduled for family meeting with mother tomorrow and also being referred for case management services 05/30 - less labile today, able to participate in brief but appropriate conversation - tolerated family meeting with mother, was productive - mother denied any acute safety concerns, permitting patient to return home after discharge - now agreeable with outpatient therapy and psychiatry, referrals to be sent 05/31 - Demonstrating ability to tolerating conversations with staff, but continues to be focused on discharge - Referrals have been sent for outpatient therapy, psychiatry, and case management. [facility] staff to meet with patient today to initiate case management - Pt requesting discharge soon - increased likelihood of compliance with outpatient treatment if she meets with her transplant case manager during her admission - Will review discharge timeline with mother, who is willing to have patient return home (3) Mood disorder: 05/24 -past history unclear. Differential includes bipolar 1 with psychosis, depression with psychosis, substance-induced mood disorder, and personality disorder. It appears she has a history of oppositional and defiant behavior as an adolescent. She is refusing to sign a release for her parents, or to allow visits, and we have not been able to get collateral from them or to determine previous episodes of care to get records. 05/25 -predominant mood is irritable, sleep excessive. Symptoms could represent mood disorder versus meth withdrawal; collateral from family would be helpful as patient remains uncooperative with assessments. 05/26 - denies feeling depressed this AM 05/27 -Patient continues to deny depression crying/wailing throughout majority of interview 05/28 - less labile but very difficult to engage - continue zyprexa unchanged 05/30 - less labile today, family meeting revealed likely history of significant abuse which patient was not willing to discuss - Remains difficult to assess underlying mood as patient continues to demonstrate rapid change from tearfulness to laughter, admitting she does not like emotions during family meeting (4) Methamphetamine abuse: 05/23 -2 years of regular methamphetamine use, > 50% of days. Unknown if she has had IV drug use. Has also abused Xanax and cannabis. -When mental status improves, provide psychoeducation about the risks of substance abuse and recommendations for inpatient rehab. -Avoid prescription of controlled substances due to the high risk of abuse/misuse/negative outcomes 05/26 - pt denies substance abuse as problem this AM. she very concretely states she has decided not to use nd therefore she is staying sober and does not need tx. 05/27 -Denies that she feels in withdrawal. Again denies need for substance abuse treatment 05/29 - VSS (5) Nicotine dependence: Offer patch and gum as needed for cravings. Refer for substance abuse treatment. Risk Factors Assessment Male: No : Yes Mental Health Diagnoses: Yes Substance Use Disorders: Yes Previous Psychiatric Hospitalization: Yes Smoker: Yes Protective Factors Assessment : No Responsible for Young Children: No Employed: No Stable Relationships: No Supportive Family: Yes Good Rapport with Provider: No Interval History Identifying Information ALEJANDRO BISHOP is a 18-year-old F who currently lives in [place] with mother and step father, has a history of methamphetamine abuse, and was admitted on 05/23/19 02:53 on a 302 involuntary commitment for psychosis and suicidal ideation. She is on a 303 involuntary commitment as of 05/25/2019. Chief Complaint "I am fine. Any idea what day I can go home?" Review of Systems Notes Constitutional: denied Cardiovascular: denied Respiratory: denied Gastrointestinal: denied Neurological: denied Psychiatric: denies symptoms other than stated above Total of at least 10 systems reviewed, pertinent positives as above and in HPI. Sleep Information Total Hours of Sleep: 7 Sleep Comments: went to the kitchen for snacks/drinks Meal Information Percent Meal Consumed - Breakfast: 100 Percent Meal Consumed - Lunch: 100 Percent Meal Consumed - Dinner: 100 Nutrition Comment: per meal log Subjective Subjective Patient was seen & assessed and interval progress reviewed with nursing and social work. Staff reports the patient had a productive meeting with her mother yesterday afternoon. She did complete a phone intake with the [facility] yesterday to request outpatient case management services. After this phone call, staff was informed the [facility] service unit will likely be sending someone to meet with the patient while here on the unit. Patient has been attending some evening groups, though continues to sleep or isolating in her room for most of the morning. Patient was seen today to assess progress since admission. She states that she is "fine" and remains focused on timing of discharge. We reviewed multiple improvements the patient has made, such as attending some group programming and being willing for outpatient psychiatric treatment. As patient has been highly focused on discharge, we reviewed that increased participation in groups and demonstration of ability to tolerate a roommate would also be positive changes. Patient was agreeable with discontinuing her medically necessary program. She states she has been tolerating medication adjustments, and denies any specific concerns. Patient is aware of referrals for outpatient services, and verbalizes willingness to follow-up after discharge. Patient denies any specific concerns, and states she is no longer having thoughts to harm herself. Patient denies homicidal ideation as well. Patient denies other needs or concerns at this time. Physical Exam Psychiatric Orientation: alert, oriented x 3 and cooperative (but remains guarded) Apperance: appropriately dressed (casually, in sweatshirt and sweatpants) and appropriately groomed Eye Contact: + fair eye contact Motor Behavior: steady gait and station and no abnormal motor movements Speech: normal rate/rhythm/volume of speech Affect: euthymic affect (smiling appropriately, demonstrates excitement when discussing d/c plans) and mood congruent with affect Mood: no depressed mood and no anxious mood Thought Process: goal directed thought process and + concrete thought process Thought Content: reality based without delusions; no hopelessness Suicidal Thoughts: denies suicidal thoughts and denies suicidal intent Homicidal Thoughts: denies homicidal thoughts Hallucinations: no auditory hallucinations and no visual hallucinations Cognition: attention grossly intact Insight: + limited insight Judgement: + limited judgement Vital Signs (Past 24 Hours) Last Vital Signs Temp 36.6 C 05/31/19 06:00 Pulse 82 05/31/19 06:29 Resp 15 05/31/19 06:00 BP 110/78 05/31/19 06:29 Pulse Ox 97 05/23/19 04:33 Results & Data Current Inpatient Medications Current Inpatient Medications: Current Inpatient Medications Acetaminophen (Tylenol) 650 mg PO Q4H PRN PRN Reason: Headache or Minor Fever Stop: 06/22/19 04:48 Al Hydrox/Mg Hydrox/Simethicone (Maalox) 30 ml PO Q4H PRN PRN Reason: GI Upset Stop: 06/22/19 04:48 Bismuth Subsalicylate (Kaopectate) 15 ml PO PRN PRN PRN Reason: Loose Stool Stop: 06/22/19 04:48 Hydroxyzine HCl (Vistaril) 50 mg PO HSZ PRN PRN Reason: Insomnia Stop: 06/22/19 04:52 Hydroxyzine HCl (Vistaril) 25 mg PO Q4H PRN PRN Reason: Anxiety Stop: 06/22/19 04:48 Last Admin: 05/28/19 17:37 Dose: 25 mg Documented by: Magnesium Hydroxide (Milk Of Magnesia) 30 ml PO DAILY PRN PRN Reason: Constipation Stop: 06/22/19 04:48 Miscellaneous (Remove Nicoderm Patch) 1 ea N/A DAILY@[id number] [facility] Stop: 06/22/19 08:58 Last Admin: 05/31/19 09:42 Dose: Not Given Documented by: Nicotine (Nicoderm Cq) 14 mg TD QAM [facility] Stop: 06/22/19 08:59 Last Admin: 05/31/19 09:42 Dose: Not Given Documented by: Olanzapine (Zyprexa Zydis Od) 5 mg PO Q4H PRN PRN Reason: psychosis Stop: 06/22/19 11:44 Last Admin: 05/30/19 18:32 Dose: 5 mg Documented by: Olanzapine (Zyprexa) 5 mg IM Q4H PRN PRN Reason: psychosis or agitation Stop: 06/22/19 11:44 Olanzapine (Zyprexa Zydis Od) 5 mg PO HS NIYAH Stop: 06/23/19 21:59 Last Admin: 05/30/19 21:19 Dose: 5 mg Documented by: Olanzapine (Zyprexa) 2.5 mg PO QAM NIYAH Stop: 06/26/19 08:59 Last Admin: 05/31/19 09:42 Dose: 2.5 mg Documented by: Sodium Chloride ([place] Nasal) 1 - 2 sprays NA PRN PRN PRN Reason: Nasal Dryness/Congestion Stop: 06/22/19 04:48 Mental Health & Subst Abuse Tx Psychiatrist Name of Psychiatrist: Corinne Conner Psychiatrist's Date of Appointment with Psychiatrist: 06/16/19 Time of Appointment with Psychiatrist: 1:00pm Psychiatric Appointment Comment: [id number] [facility] Therapist Name of Therapist: Livier Rizzo Therapist's Date of Therapist Appointment: 06/07/19 Time of Therapist Appointment: 2:30 p.m. Therapy Appointment Comment: [address] [facility] [address], [place] Form Tamping Machine Operator Name of Form Tamping Machine Operator: [facility] Phone Number for Form Tamping Machine Operator: [phone] Case Management Appointment Comment: [address] [facility], [facility] [address], [facility] catherine Post Discharge Appointments Primary Care Physician Name Of Family Doctor: Arianne Thomas Primary [facility] Time of Appointment with PCP: Please follow up as needed Provider Appointment Comment: [address] [facility] Contact Information Discharge Discharge Address: [address] [place] [address]
[2019-05-31] MEDS: OLANZAPINE ZYDIS 5 MG ORALLY DIS. TAB PO PRN ×2 (11:06→17:26)
[2019-05-31] MEDS: OLANZAPINE ZYDIS 5 MG ORALLY DIS. TAB PO SCH (21:44)
[2019-06-01] MEDS: OLANZAPINE 2.5 MG TAB PO SCH (09:56)
[2019-06-01] MEDS: NICOTINE 14 MG/24 HR PATCH TD SCH (09:56)
--- NOTE | 2019-06-01 10:29 | Discharge Summary ---
Date of Service June 01, 2019 History of Present Illness Per records, the patient was seen in the ER twice in a 24-hour period, on 05/22/2019 and again 05/23/2019. She initially presented after calling crisis with paranoia, auditory hallucinations, and seeing shadowy figures. It was reported that she lived with her mother and stepfather, who were concerned for her safety, and she indicated she was willing for inpatient treatment. Her drug screen was positive for amphetamine/methamphetamine. She was agitated and pacing in the ER, and received Lorazepam 1 mg IM. She then became sedated and confused. A 302 petition was completed and the delegate contacted, but they declined the petition stating her symptoms were due to methamphetamine abuse. The patient's mental status improved in the ER, and she refused recommendations for mental health or substance abuse treatment. Her mother and stepfather were contacted and picked her up from the emergency room. She then re-presented to the emergency room less than 24 hours later with paranoia and suicidal ideation, again on referral from a [facility] crisis assessment at her mother's home. Per the 302 petition was was completed by the can help mobile worker, the patient made repeated statements that she wanted to , and said she would not disclose her plan, but there were many ways. She was hallucinating, talking to people who were not present in the room, and paranoid. She had not been bathing as she feared that somebody was going to hurt her. She was poorly cooperative with the assessment in the ER, repeatedly screaming that she did not want to live. She punched a wall several times. Per EMS assessment, the patient was laughing inappropriately, and rapidly became angry and punched a wall. She was pacing, agitated, and inconsolable, stating that she was going crazy, and was hostile towards staff. At one point she fell on the ground and was crying uncontrollably, and while in the ambulance, ripped off her blood pressure cuff and pulse ox, so was restrained to the stretcher. When she arrived in the ER and they removed straps from the stretcher, she attempted to get up and run away. She reported worsening paranoia, thoughts that people were plotting against her, and had called [facility] because she was having suicidal and homicidal ideation. She had not showered for 5 days because she was fearful, and punched a wall at her mother's house because she was angry. She reported last use of meth was 2-3 days ago. Although she reported a history of mental health issues, she denied being in treatment or taking any medications. On exam, she was agitated, screaming, crying, and paranoid. She was admitted on an involuntary commitment, and placed in a medically necessary private room. She was uncooperative with the admission assessments. On my assessment, she was seen in her room, where she is in bed sleeping. She was very difficult to arouse, was irritable and uncooperative. She stated she did not want to talk, rolled over and covered her head with a blanket, and did not respond to further efforts to engage her. The assessment is limited by her inability/unwillingness to participate, and additional information was obtained from review of records. Physical Exam Psychiatric Orientation: alert, oriented x 3 and cooperative (mildly guarded) Apperance: appropriately dressed (casually, wearing sweatshirt and sweatpants), + disheveled (mildly, hair is unkempt) and appeared stated age Eye Contact: + fair eye contact Motor Behavior: steady gait and station and no abnormal motor movements Speech: normal rate/rhythm/volume of speech (brief, hurried responses to questions) Affect: euthymic affect (smiling appropriately) and mood congruent with affect Mood: no depressed mood and no anxious mood Thought Process: goal directed thought process and + concrete thought process Thought Content: reality based without delusions; no hopelessness Suicidal Thoughts: denies suicidal thoughts and denies suicidal intent Homicidal Thoughts: denies homicidal thoughts Hallucinations: no auditory hallucinations and no visual hallucinations Cognition: attention grossly intact and language grossly intact Insight: + fair insight Judgement: + fair judgement Vital Signs (Past 24 Hours) Last Vital Signs Temp 36.7 C 06/01/19 06:47 Pulse 91 H 06/01/19 06:47 Resp 18 06/01/19 06:47 BP 115/84 06/01/19 06:47 Pulse Ox 97 05/23/19 04:33 Principal Diagnosis - Acute psychosis (differential includes substance-induced, mood disorder, or primary thought disorder - Polysubstance abuse, recent methamphetamine abuse - Nicotine abuse Psychiatric Data 18-year-old female admitted involuntarily on 05/23/19 after an admitted episode of substance use. Pt had initially presented on 05/22/19 with similar symptoms, but was discharged home after 302 warrant was denied. She represented the next day with worsening paranoia and demonstrated limited self-care. Pt reportedly has an unclear past psychiatric history but multiple inpatient hospitalizations at other facilities, self-report of bipolar disorder, cannabis, alprazolam, and other substance abuse, and a recent history of methamphetamine abuse for the past 2 years. She was admitted to the [facility] involuntary after an episode of agitation at her mother and stepfather's home where she punched a wall and and said she wanted to . She was agitated in the ambulance and the ER, uncooperative with assessments, and attempted to run away. She has not been caring for herself, has not showered in at least 8 days, and endorsed auditory and visual hallucinations and paranoia. Early in her hospitalization, she had been highly uncooperative with interview, often yelling loudly and throwing items in her room. Pt was started on a trial of olanzapine, which was titrated to a scheduled dose of 2.5mg qAM and 5mg qHS - with 5mg prn dosing available. Pt was eventually able to tolerate brief superficial conversation without becoming acutely agitated. She began attending group programming, though participation remained limited. Pt did participate in a family meeting involving her mother, who remains supportive and is permitting patient to return home with her after discharge. She was agreeable with signing ROIs to pursue referrals for outpatient treatment and was set up with psychiatry, therapy, and case management. She continuously declined recommendation for inpatient D&A rehab. Pt verbalized willingness to participate in outpatient psychiatric treatment after discharge. Patient had been demonstrating improved interactions with peers and staff, and reported improvement in mood and resolution of SI. She is future oriented in conversation and verbalizes ability to contract for safety outside of the hospital setting. Based on review of patient's case and their current presentation, risk of harm to self or others is no longer perceived to be acute. Management of symptoms on an outpatient basis seems the most appropriate and least restrictive setting. Pt seems appropriate for discharge with recommendation for consistent follow-up with outpatient psychiatric prescriber, therapist, and case finishing machine adjuster. Pt verbalized understanding of discharge plan reviewed and is agreeable with plan to be discharged home today with her mother. Day of Discharge Assessment Patient's case was reviewed and discussed during treatment team. Staff report the patient tolerated a meeting for case finishing machine adjuster assignment. She was able to spend some time processing her mood and life-choices with staff. She is requesting discharge home today, mother reportedly aware and agreeable. Patient was seen today to assess readiness for discharge. She states she is "ok" today, and denies any acute concerns. Pt reports that her mood has been consistently improved, and she denies SI/HI and other safety concerns. Pt reports feeling comfortable with the idea of returning home with her mother after discharge. She reports completion of a safety plan and verbalizes willingness to follow-up with outpatient psychiatric services after discharge. Pt is willing to continue her psychiatric medications, requesting prn medications for anxiety as well. Pt seems to be future-oriented and denies anxiety related to returning home today. She denies other needs prior to discharge. ROS: Constitutional: denied Cardiovascular: denied Respiratory: denied Gastrointestinal: denied Neurological: denied Psychiatric: denies symptoms other than stated above Total of at least 10 systems reviewed, pertinent positives as above and in HPI. Transition of Care Transition Of Care Record: was reviewed with the patient Advance Directives Advance Directives Information Provided: Yes Advance Directives: No Mental Health Advance Directive: No Advance Directives on File: No Living Will: No Power of Head Cashier: No Advance Directives Reason:: Declines as Mental Health Visit. Risk Factors Assessment Presenting risk factors reviewed on discharge. Precipitating stressors mitigated by: admission for inpatient psychiatric observation and treatment, initiation of medications to target presenting symptoms, attendance of therapeutic treatment groups, development of healthy and effective coping strategies, involvement of outpatient supports, completion of a safety plan, discussion regarding substance abuse and effects on mental health diagnoses, and education on diagnoses. Pt has demonstrated improvement in condition with re catina to improvement in symptoms of psychosis, improved interactions with peers and staff, resolution of SI, involvement of mother in safety and discharge planning. At this time, patient is requesting discharge and is no longer considered to be at acute risk of harm to herself or others. Pt will be discharged with recommendation for ongoing outpatient psychiatric treatment. Pt is at increased risk of harm to self or others when compared to the general population and there are several risk factors which are not likely to be mitigated in an inpatient treatment setting. Patient admits to history of substance abuse that has led to encountering rather dangerous situations. Should this behavior continue after discharge, she remains at increased overall risk of harm. Male: No : Yes Mental Health Diagnoses: Yes Substance Use Disorders: Yes Previous Psychiatric Hospitalization: Yes Smoker: Yes Protective Factors Assessment : No Responsible for Young Children: No Employed: No Stable Relationships: No Supportive Family: Yes Good Rapport with Provider: No Tobacco Cessation at Discharge Tobacco Cessation Medication Prescribed at Discharge: Offered & Pt Refused Total Time Total Time Spent: Greater Than 30 Minutes Total Time Includes: Examination of the patient, Discharge Planning, Medication Reconciliation and Communication with other providers Discharge Data Lab Results 05/23/19 05/23/19 05/23/19 00:28 00:28 01:07 WBC 7.99 RBC 4.36 Hgb 14.0 Hct 40.9 MCV 93.8 MCH 32.1 MCHC 34.2 RDW Std Deviation 42.0 RDW Coeff of Maye 12.3 Plt Count 309 MPV 9.9 Immature Gran % (Auto) 0.3 Neut % (Auto) 60.5 Lymph % (Auto) 28.0 Starke % (Auto) 10.0 Eos % (Auto) 0.9 Baso % (Auto) 0.3 Immature Gran # (Auto) 0.02 Neut # (Auto) 4.84 Lymph # (Auto) 2.24 Starke # (Auto) 0.80 H Eos # (Auto) 0.07 Baso # (Auto) 0.02 Sodium Potassium Chloride Carbon Dioxide Anion Gap BUN Creatinine Est Cr Clr Drug Dosing Est GFR ( Amer) Est GFR (Non-Af Amer) BUN/Creatinine Ratio Glucose Calcium Total Bilirubin AST ALT Alkaline Phosphatase Total Protein Albumin Globulin Albumin/Globulin Ratio TSH Urine Color Yellow Urine Appearance Turbid A Urine pH 8.0 H Ur Specific [place] 1.024 Urine Protein Negative Urine Glucose (UA) Negative Urine Ketones Negative Urine Blood 3+ H Urine Nitrite Negative Urine Bilirubin Negative Urine Urobilinogen Negative Ur Leukocyte Esterase 3+ H Urine WBC (Auto) >30 H Urine RBC (Auto) 10-30 H U Hyaline Cast (Auto) 0 U Epithel Cells (Auto) >30 H Urine Bacteria (Auto) 2+ H Urine Yeast Present A Salicylates Urine Opiates Screen Neg Ur Methadone, Qual Neg Acetaminophen Urine Barbiturates Neg Ur Phencyclidine (PCP) Neg U Amphetamin/Meth Scrn Neg MDMA (Ecstasy) Screen Neg U Benzodiazepines Scrn Neg Ur Cocaine Metabolite Neg U Marijuana (THC) Screen Neg Ethyl Alcohol mg/dL 05/23/19 05/23/19 05/23/19 01:07 01:07 01:07 WBC RBC Hgb Hct MCV MCH MCHC RDW Std Deviation RDW Coeff of Maye Plt Count MPV Immature Gran % (Auto) Neut % (Auto) Lymph % (Auto) [place] % (Auto) Eos % (Auto) Baso % (Auto) Immature Gran # (Auto) Neut # (Auto) Lymph # (Auto) [place] # (Auto) Eos # (Auto) Baso # (Auto) Sodium 139 Potassium 4.7 Chloride 107 Carbon Dioxide 26 Anion Gap 6.0 BUN 15 Creatinine 0.74 Est Cr Clr Drug Dosing 75.2 Est GFR ( Amer) 135.2 Est GFR (Non-Af Amer) 116.6 BUN/Creatinine Ratio 19.7 Glucose 86 Calcium 9.5 Total Bilirubin 0.4 AST 15 ALT 15 Alkaline Phosphatase 72 Total Protein 7.9 Albumin 4.2 Globulin 3.7 Albumin/Globulin Ratio 1.1 TSH 1.050 Urine Color Urine Appearance Urine pH Ur Specific [place] Urine Protein Urine Glucose (UA) Urine Ketones Urine Blood Urine Nitrite Urine Bilirubin Urine Urobilinogen Ur Leukocyte Esterase Urine WBC (Auto) Urine RBC (Auto) U Hyaline Cast (Auto) U Epithel Cells (Auto) Urine Bacteria (Auto) Urine Yeast Salicylates < 1.7 L Urine Opiates Screen Ur Methadone, Qual Acetaminophen < 2 L Urine Barbiturates Ur Phencyclidine (PCP) U Amphetamin/Meth Scrn MDMA (Ecstasy) Screen U Benzodiazepines Scrn Ur Cocaine Metabolite U Marijuana (THC) Screen Ethyl Alcohol mg/dL < 3.0 Hospital Course (1) Suicidal ideation: 05/23 -continue inpatient treatment on an involuntary commitment. -Continue private room due to agitation and erratic behavior. -Patient is excused from groups until she can demonstrate behavioral control. -Every 15 minute checks for safety. 05/29 - 05/31 -Patient denying ongoing suicidal ideation (2) Acute paranoia: 05/23 -differential includes substance-induced (methamphetamine, possibly others), psychotic mood disorder, or primary thought disorder. -Order olanzapine 5 mg every 4 hours as needed psychosis. -Get collateral information from parents. 05/24 -diagnosis psychosis NOS. Differential as above. Patient remains easily agitated and labile, cannot rule out a mood component such as bipolar disorder with psychosis. She is not able to engage in the interview or tolerate interactions with others, has been agitated and throwing items around her room, and has not even been able to complete the admission assessment, let alone appropriate discharge planning. We will therefore file for a 303 commitment with a hearing tomorrow. -Schedule olanzapine 5 mg at bedtime, and continue as needed's. She will need fasting labs ordered when she is calmer and more cooperative. -Order safety tray due to episodes of agitation and aggression. Continue private room and use of the JAMEEL. She is excused from groups due to behavioral dyscontrol. 05/25 -on a 303 commitment. -Patient remains uncooperative with attempts to assess her engagement in treatment. She has not attended any groups, or sign releases. Recommend ROIs for most recent inpatient hospitalization, family, and outpatient providers if she has any (none known at this point). -Continue olanzapine Zydis 5 mg at bedtime + prns. 05/26 - more appropriately interactive today which likely suggests reduced paranoia - will add 2.5mg of standing olanzapine in AM - med well tolerated so far - encouraged her to demonstrated to us that she can take care of basic needs and tolerate stimulation out of room as she feels better 05/27 -Affect remains labile -No improvement evident in her ability to care for herself outside of a structured environment. Basic goals reviewed such as spending time out of room, showering, interacting appropriately with others 05/28 - declined additional anxiety medication. reviewed target sx for zyprexa 05/29 -Patient requested and received as needed olanzapine yesterday x2 -Remains difficult to appreciate thought process and content due to her unwillingness to engage therapeutically. -Scheduled for family meeting with mother tomorrow and also being referred for case management services 05/30 - less labile today, able to participate in brief but appropriate conversation - tolerated family meeting with mother, was productive - mother denied any acute safety concerns, permitting patient to return home after discharge - now agreeable with outpatient therapy and psychiatry, referrals to be sent 05/31 - Demonstrating ability to tolerating conversations with staff, but continues to be focused on discharge - Referrals have been sent for outpatient therapy, psychiatry, and case management. [facility] staff to meet with patient today to initiate case management - Pt requesting discharge soon - increased likelihood of compliance with outpatient treatment if she meets with her case finishing machine adjuster during her admission - Will review discharge timeline with mother, who is willing to have patient return home (3) Mood disorder: 05/24 -past history unclear. Differential includes bipolar 1 with psychosis, depression with psychosis, substance-induced mood disorder, and personality disorder. It appears she has a history of oppositional and defiant behavior as an adolescent. She is refusing to sign a release for her parents, or to allow visits, and we have not been able to get collateral from them or to determine previous episodes of care to get records. 05/25 -predominant mood is irritable, sleep excessive. Symptoms could represent mood disorder versus meth withdrawal; collateral from family would be helpful as patient remains uncooperative with assessments. 05/26 - denies feeling depressed this AM 05/27 -Patient continues to deny depression crying/wailing throughout majority of interview 05/28 - less labile but very difficult to engage - continue zyprexa unchanged 05/30 - less labile today, family meeting revealed likely history of significant abuse which patient was not willing to discuss - Remains difficult to assess underlying mood as patient continues to demonstrate rapid change from tearfulness to laughter, admitting she does not like emotions during family meeting (4) Methamphetamine abuse: 05/23 -2 years of regular methamphetamine use, > 50% of days. Unknown if she has had IV drug use. Has also abused Xanax and cannabis. -When mental status improves, provide psychoeducation about the risks of substance abuse and recommendations for inpatient rehab. -Avoid prescription of controlled substances due to the high risk of abuse/misuse/negative outcomes 05/26 - pt denies substance abuse as problem this AM. she very concretely states she has decided not to use nd therefore she is staying sober and does not need tx. 05/27 -Denies that she feels in withdrawal. Again denies need for substance abuse treatment 05/29 - VSS (5) Nicotine dependence: Offer patch and gum as needed for cravings. Refer for substance abuse treatment. Mental Health & Subst Abuse Tx Psychiatrist Name of Psychiatrist: Corinne Conner Psychiatrist's Date of Appointment with Psychiatrist: 06/16/19 Time of Appointment with Psychiatrist: 1:00pm Psychiatric Appointment Comment: [id number] Psychiatrist Release of Information: Obtained, Reviewed and Signed Therapist Name of Therapist: Livier Rizzo Therapist's Date of Therapist Appointment: 06/07/19 Time of Therapist Appointment: 2:30 p.m. Therapy Appointment Comment: [address], [address], [place] Therapist Release of Information: Obtained, Reviewed and Signed Cook Soup Name of Cook Soup: [facility]Natali Marion Phone Number for Cook Soup: [phone] Time of Appointment with Cook Soup: Natali will call you at home to schedule an appointment Case Management Appointment Comment: [id number], [address], [place] Cook Soup Release of Information: Obtained, Reviewed and Signed Post Discharge Appointments Primary Care Physician Name Of Family Doctor: Arianne Thomas Primary Care Time of Appointment with PCP: Please follow up as needed Provider Appointment Comment: [facility] Primary [facility] Release of Information: Obtained, Reviewed and Signed Smoking Cessation Counseling Tobacco Cessation Medication Prescribed at Discharge: Offered & Pt Refused Contact Information Discharge Discharge Address: [address] [place] [address] Discharge Plan Discharge Items Patient Disposition: Home - Self-Care Reason For Visit: PSYCHOSIS Discharge Diagnosis: - Acute paranoia (differential includes substance-induced, psychotic mood disorder, or primary thought disorder) - History of mood disorder - Methamphetamine abuse Condition on Discharge: Fair Activity: Resume your previous activity Non-emergency contact: Primary Care Provider, Psychiatrist, Therapist and Ribbon Blockmaker Call non-emergency contact if: you have any medication questions and your symptoms worsen Follow-up/Referrals: Radha Thomas, [Primary Care Provider] - Diet: Regular Addtl Attending Provider Instructions: SPECIAL CARE INSTRUCTIONS: 1. Follow through with your scheduled aftercare appointments. If unable to keep an appointment, please call to reschedule. 2. Take your medication only as prescribed. Medication should not be changed or stopped without the approval of your doctor. In the event of worsening symptoms or concerns about side effects, contact your doctor immediately. 3. Utilize new healthy coping skills, anger management skills, and stress management skills learned during your hospitalization. Journal feelings and process them with a support person. Identify stressors or situations that may result in relapse, deterioration or inappropriate behaviors and develop a p magui to deal with those issues. 4. If your coping skills are ineffective and you are in crisis, contact your outpatient providers for direction. If unable to reach your providers, please call the CAN HELP LINE AT or go to the closest Emergency Room. 5. Avoid alcohol and un-prescribed drugs. 6. You have been provided with the Mental Health Advance Directives Pamphlet for your review. AFTERCARE APPOINTMENTS: * Please call your insurance company prior to your scheduled appointment to confirm your aftercare providers are covered. Take your insurance information to your appointments. WHO TO CALL AND WHEN: Medical Emergencies: For questions or emergencies related to your hospital stay, please contact the Inpatient Behavioral Health Unit at [phone]. A camp recreation specialist is on-call 19/01 for the Behavioral Health Unit for emergencies At any time you feel your situation is an emergency, you may also call 911 immediately. Your Discharge Instructions noted above were prepared by provider Sheyla Singer PA-C. Pending Studies at Discharge: No Stand-Alone Forms: My [facility], Smoking Cessation, Suicide Prevention Resources Medications and DC Order Prescriptions: New hydroxyzine HCl 25 mg Tablet 25 mg PO Q4H PRN (Reason: anxiety) 30 Days Qty: 30 RF: 0 olanzapine 5 mg Tablet,Disintegrating 5 mg PO BID PRN (Reason: anxiety/agitation) 30 Days Qty: 30 RF: 0 olanzapine 5 mg tablet 5 mg PO UD 30 Days Qty: 45 RF: 0 No Action No Known Home Medications RF: 0 Discharge Orders: Discharge Order (Routine); Ordered 06/01/19 Ordered By: Sheyla Singer Admission Data Admit Date/Time: 05/23/19 02:53 Attending Provider: Jacqueline Snowden Admit Provider: Jacqueline Snowden Primary Care Provider: Radha Thomas Other Interventions: Discharge Summary Assessment (RN) Last Done: 06/01/19 11:50 PSY Interdisciplinary Discharge Planning Last Done: 06/01/19 11:26 DC Date/Time DO NOT enter until pt leaves facility: 06/01/19 13:50 Coding Level of Care Code 67386 D/C day mgmt > 30 min Diagnoses Suicidal ideation R45.851 Acute paranoia F22 Mood disorder F39 Methamphetamine abuse F15.10 Nicotine dependence F17.200
[2019-06-01] MEDS: OLANZAPINE ZYDIS 5 MG ORALLY DIS. TAB PO PRN (11:22)
== END 2019-06-01 13:50 | disposition home or self-care (01) | DRG 885 ==
LOC: ED 00:21 → 3S 02:53

== ENCOUNTER 2019-07-02 18:10 | Inpatient (IN) ==
[2019-07-02] MEDS ORDERED: ONDANSETRON 4 MG OD TAB PO STA (18:28)
[2019-07-02] MEDS ORDERED: ACETAMINOPHEN 325 MG TAB PO STA (18:28)
[2019-07-02 19:27] LABS: Basophils # (auto) 0.01 K/uL (0-0.2); Basophils % (auto) 0.1 %; Eosinophils # (auto) 0.03 K/uL (0-0.5); Eosinophils % (auto) 0.4 %; Hematocrit (blood only) 37.6 % (37-47); Hemoglobin 12.4 g/dL (12.0-16.0); Immature Granulocytes # (auto) 0.01 K/uL (0.00-0.02); Immature Granulocytes % (auto) 0.1 %; Lymphocytes # (auto) 1.19 K/uL (1.2-3.4); Lymphocytes % (auto) 14.8 %; Mean Corpuscular Hemoglobin 32.3 pg (25-34); Mean Corpuscular Volume 97.9 fL (80-100); Mean Platelet Volume 9.7 fL (7.4-10.4); Monocytes # (auto) 0.65 K/uL (0.11-0.59); Monocytes % (auto) 8.1 %; Neutrophils # (auto) 6.16 K/uL (1.4-6.5); Neutrophils % (auto) 76.5 %; Platelet Count 287 K/uL (130-400); RDW Coefficient of Variation 12.6 % (11.5-14.5); RDW Standard Deviation 45.4 fL (36.4-46.3); Red Blood Count 3.84 M/uL (4.2-5.4); White Blood Count 8.05 K/uL (4.8-10.8)
[2019-07-02 19:37] LABS: Appearance Urine Turbid (Clear); Bacteria Urine Automated 1+ (Negative); Bilirubin Urine Negative (Negative); Blood Urine 2+ (Negative); Color Urine Yellow; Epithelial Cell Urine Auto >30 /lpf (0-5); Glucose Urine UA Negative (Negative); Ketones Urine Negative (Negative); Leukocyte Esterase Urine Trace (Negative); Nitrite Urine Negative (Negative); Protein Urine Negative (Negative); Specific Gravity Urine 1.012 (1.000-1.030); Urobilinogen Urine Negative (Negative); pH Urine 7.5 (4.5-7.5)
[2019-07-02 19:51] LABS: Alanine Aminotransferase 15 U/L (12-78); Albumin Level 4.1 gm/dl (3.4-5.0); Aspartate Aminotransferase 11 U/L (15-37); BUN Creatinine Ratio 14.8 (10-20); Blood Urea Nitrogen 8 mg/dl (7-18); Calcium 9.6 mg/dl (8.5-10.1); Carbon Dioxide 28 mmol/L (21-32); Chloride 109 mmol/L (98-107); Est GFR (African American) > 150.0; Glucose 90 mg/dl (70-99); Potassium 4.7 mmol/L (3.5-5.1); Sodium 139 mmol/L (136-145)
[2019-07-02 19:57] LABS: Acetaminophen < 2 ug/ml (10-30); Salicylate 2.7 mg/dl (2.8-20)
[2019-07-02 20:01] LABS: Albumin Globulin Ratio 1.1 (0.9-2); Alkaline Phosphatase 66 U/L (45-117); Bilirubin,Total 0.3 mg/dl (0.2-1); Globulin 3.6 gm/dl (2.5-4.0); Total Protein 7.7 gm/dl (6.4-8.2)
[2019-07-02 20:02] LABS: Amphetamines+Metham, Urine Neg (Neg); Barbiturates, Urine Neg (Neg); Benzodiazepine, Urine Neg (Neg); Cocaine, Urine Neg (Neg); MDMA (Ecstacy), Urine Neg (Neg); Methadone, Urine Neg (Neg); Opiate, Urine Neg (Neg); Phencyclidine, Urine Neg (Neg)
--- NOTE | 2019-07-02 20:20 | Emergency Department Note ---
Entered by Annabel Lee acting as a scribe for Radha Llamas DO History of Present Illness General Chief complaint: Mental Health Evaluation Stated complaint: DEPRESSION, ANXIETY Time Seen by Provider: 07/02/19 18:19 Source: patient and other (Case management) History of Present Illness Onset (ago): unknown Location: head (mental health evaluation) Severity: similar to prior episodes Maximum Pain Intensity: 7 Associated symptoms: + denies other symptoms (blurred vision, double vision), + headaches (8/10, not similar to prior, exacerbated by scents) and + other (hallucinations, "flickering" vision, worsened depression, SI, "feels like someone is going to hurt her", tinnitus, dizziness); no nausea/vomiting Treatments prior to arrival: other (Ibuprofen for headache with no relief ) The patient is a 18 year old female with a history of acute paranoia, anxiety, depression, mood disorder, methamphetamine abuse (x1.5 years, states sober now), SI, headaches, and hallucinations who presents to the Emergency Room for a mental health evaluation. Case management reports that the patient has multiple ED visits for the same. Case management states that she reports worsened depression and SI. She states that she feels like someone is going to hurt her. The patient also complains of a migraine today which she states is not similar to her usual headaches and rates her pain an 8/10 in severity. She states that scents are a trigger for her migraines and that she was triggered by the smell of burning incense today. She also admits to having "flickering" vision associated with tinnitus and dizziness which are similar to symptoms of her prior hallucinations. The patient normally takes Ibuprofen for pain and states that she took it today without relief. The patient admits that she has not had any recent drug or alcohol use. Additionally she has not had any recent falls or head injuries. She denies blurred vision, double vision, nausea, vomiting, and chance of . The patient offers no further concerns at this time. Home Medications Home Medications Medication Instructions Recorded Confirmed Type No Known Home Medications 07/02/19 07/02/19 History Allergies Allergy/AdvReac Type Severity Reaction Status Date / Time No Known Allergies Allergy Verified 06/17/19 23:22 Past Med/Surg History Medical History ADHD (attention deficit hyperactivity disorder) Anxiety (Acute) Depression History of frequent headaches Methamphetamine abuse Mood disorder (Acute) Nicotine dependence Polysubstance abuse (Acute) Thought disorder (Inactive) Surgical History No pertinent past surgical history Family History Other No significant family history Social History Preferred Language: Greek Communication Ability: Effective Data Control Assistant Required: No Beliefs That Will Affect Care: None Current Living Situation: Family Feels Safe at Home: Yes Smoking Status: Current some day smoker Tobacco Type: cigarettes ; Hx Alcohol Use: No Hx Substance Use: Yes substance use type: methamphetamine Review of Systems See HPI for pertinent positives & negatives. and A total of 10 systems reviewed and were otherwise negative Physical Exam Vital Signs Vital Signs - 24 hr 07/02/19 18:13 07/02/19 20:14 Temperature 36.7 C Temperature Source Oral Pulse Rate 77 Pulse Rate [Right Finger] 75 Respiratory Rate 22 20 Blood Pressure 113/75 Blood Pressure [Right Arm] 109/73 Blood Pressure Mean 87 Blood Pressure Mean [Right Arm] 85 Blood Pressure Position Sitting Blood Pressure Position [Right Arm] Sitting Pulse Oximetry 99 100 Oxygen Delivery Method Room Air Sepsis Recent Fever Within 48 Hours No Sepsis New/Unexplained Change in Mental Status No Sepsis Action Taken by Nursing No Action Required GENERAL: alert, anxious appearing, well nourished, no distress, non-toxic EYE EXAM: normal conjunctiva, PERRL and EOM's grossly intact OROPHARYNX: no exudate, no erythema, lips, buccal mucosa, and tongue normal and mucous membranes are moist NECK: supple, no nuchal rigidity, no adenopathy, non-tender LUNGS: Clear to auscultation. Normal chest wall mechanics HEART: no murmurs, S1 normal and S2 normal ABDOMEN: abdomen soft, non-tender, normo-active bowel sounds, no masses, no rebound or guarding. BACK: Back is symmetrical on inspection and there is no deformity, no midline tenderness, no CVA tenderness. SKIN: no rashes and no bruising UPPER EXTREMITIES: upper extremities are grossly normal. FROM, nml pulses b/l. LOWER EXTREMITIES: No pitting edema. FROM, nml pulses b/l. NEURO EXAM: Normal sensorium, cranial nerves II-XII grossly intact, normal speech, no gross weakness of arms, no gross weakness of legs. Course Course 1821: Past medical records reviewed. The patient was evaluated in room A06. A complete history and physical exam was performed. 2010: The patient was evaluated by psych. [facility]. 2022: I checked on the patient. She states that her headache is improved. She now admits that she normally does not get migraines after reporting a history of them. She declines additional medications and states that she is not currently experiencing nausea or dizziness. 2052 I signed a 201 form. The patient will be further evaluated by mental health as an inpatient. Administered Medications Discontinued Medications Acetaminophen (Tylenol) 650 mg PO NOW STA Stop: 07/02/19 18:29 Last Admin: 07/02/19 18:42 Dose: 650 mg Documented by: [id number] Ondansetron HCl (Zofran Odt) 4 mg PO NOW STA Stop: 07/02/19 18:29 Last Admin: 07/02/19 18:43 Dose: 4 mg Documented by: [id number] Medical Decision Making Differential Diagnosis Differential diagnosis includes but is not limited to Mood Disorder, Overdose, Infectious, Electrolyte Abnormality, Cardiac, Hepatic, Endocrine, Toxicologic, Neurologic, amongst other pathologies Entertained. Medical Records Attestation: I reviewed the patient's medical records. Home Medications Current Medication List: was personally reviewed by me Laboratory Data Attestation: I reviewed the patient's lab results. Result diagrams: 07/02/19 19:12 07/02/19 19:12 Lab Results 07/02/19 07/02/19 07/02/19 Range/Units 19:12 19:12 19:12 WBC 8.05 (4.8-10.8) K/uL RBC 3.84 L (4.2-5.4) M/uL Hgb 12.4 (12.0-16.0) g/dL Hct 37.6 (37-47) % MCV 97.9 (80-100) fL MCH 32.3 (25-34) pg MCHC 33.0 (32-36) g/dL RDW Std Deviation 45.4 (36.4-46.3) fL RDW Coeff of Maye 12.6 (11.5-14.5) % Plt Count 287 (130-400) K/uL MPV 9.7 (7.4-10.4) fL Immature Gran % (Auto) 0.1 % Neut % (Auto) 76.5 % Lymph % (Auto) 14.8 % [place] % (Auto) 8.1 % Eos % (Auto) 0.4 % Baso % (Auto) 0.1 % Immature Gran # (Auto) 0.01 (0.00-0.02) K/uL Neut # (Auto) 6.16 (1.4-6.5) K/uL Lymph # (Auto) 1.19 L (1.2-3.4) K/uL [place] # (Auto) 0.65 H (0.11-0.59) K/uL Eos # (Auto) 0.03 (0-0.5) K/uL Baso # (Auto) 0.01 (0-0.2) K/uL Sodium 139 (136-145) mmol/L Potassium 4.7 (3.5-5.1) mmol/L Chloride 109 H (98-107) mmol/L Carbon Dioxide 28 (21-32) mmol/L Anion Gap 2.0 L (3-11) BUN 8 (7-18) mg/dl Creatinine 0.55 L (0.6-1.2) mg/dl Est Cr Clr Drug Dosing Not Reportable Est GFR ( Amer) > 150.0 Est GFR (Non-Af Amer) 135.0 BUN/Creatinine Ratio 14.8 (10-20) Glucose 90 (70-99) mg/dl Calcium 9.6 (8.5-10.1) mg/dl Total Bilirubin 0.3 (0.2-1) mg/dl AST 11 L (15-37) U/L ALT 15 (12-78) U/L Alkaline Phosphatase 66 (45-117) U/L Total Protein 7.7 (6.4-8.2) gm/dl Albumin 4.1 (3.4-5.0) gm/dl Globulin 3.6 (2.5-4.0) gm/dl Albumin/Globulin Ratio 1.1 (0.9-2) TSH 1.190 (0.300-4.500) uIu/ml Urine Color Urine Appearance (Clear) Urine pH (4.5-7.5) Ur Specific Cross (1.000-1.030) Urine Protein (Negative) Urine Glucose (UA) (Negative) Urine Ketones (Negative) Urine Blood (Negative) Urine Nitrite (Negative) Urine Bilirubin (Negative) Urine Urobilinogen (Negative) Ur Leukocyte Esterase (Negative) Urine WBC (Auto) (0-5) /hpf Urine RBC (Auto) (0-4) /hpf U Hyaline Cast (Auto) (0-5) /lpf U Epithel Cells (Auto) (0-5) /lpf Urine Bacteria (Auto) (Negative) Salicylates 2.7 L (2.8-20) mg/dl Urine Opiates Screen (Neg) Ur Methadone, Qual (Neg) Acetaminophen < 2 L (10-30) ug/ml Urine Barbiturates (Neg) Ur Phencyclidine (PCP) (Neg) U Amphetamin/Meth Scrn (Neg) MDMA (Ecstasy) Screen (Neg) U Benzodiazepines Scrn (Neg) Ur Cocaine Metabolite (Neg) U Marijuana (THC) Screen (Neg) Ethyl Alcohol mg/dL (0-3) mg/dl 07/02/19 07/02/19 07/02/19 Range/Units 19:12 19:26 19:26 WBC (4.8-10.8) K/uL RBC (4.2-5.4) M/uL Hgb (12.0-16.0) g/dL Hct (37-47) % MCV (80-100) fL MCH (25-34) pg MCHC (32-36) g/dL RDW Std Deviation (36.4-46.3) fL RDW Coeff of Maye (11.5-14.5) % Plt Count (130-400) K/uL MPV (7.4-10.4) fL Immature Gran % (Auto) % Neut % (Auto) % Lymph % (Auto) % [place] % (Auto) % Eos % (Auto) % Baso % (Auto) % Immature Gran # (Auto) (0.00-0.02) K/uL Neut # (Auto) (1.4-6.5) K/uL Lymph # (Auto) (1.2-3.4) K/uL [place] # (Auto) (0.11-0.59) K/uL Eos # (Auto) (0-0.5) K/uL Baso # (Auto) (0-0.2) K/uL Sodium (136-145) mmol/L Potassium (3.5-5.1) mmol/L Chloride (98-107) mmol/L Carbon Dioxide (21-32) mmol/L Anion Gap (3-11) BUN (7-18) mg/dl Creatinine (0.6-1.2) mg/dl Est Cr Clr Drug Dosing Est GFR ( Amer) Est GFR (Non-Af Amer) BUN/Creatinine Ratio (10-20) Glucose (70-99) mg/dl Calcium (8.5-10.1) mg/dl Total Bilirubin (0.2-1) mg/dl AST (15-37) U/L ALT (12-78) U/L Alkaline Phosphatase (45-117) U/L Total Protein (6.4-8.2) gm/dl Albumin (3.4-5.0) gm/dl Globulin (2.5-4.0) gm/dl Albumin/Globulin Ratio (0.9-2) TSH (0.300-4.500) uIu/ml Urine Color Yellow Urine Appearance Turbid A (Clear) Urine pH 7.5 (4.5-7.5) Ur Specific Cross 1.012 (1.000-1.030) Urine Protein Negative (Negative) Urine Glucose (UA) Negative (Negative) Urine Ketones Negative (Negative) Urine Blood 2+ H (Negative) Urine Nitrite Negative (Negative) Urine Bilirubin Negative (Negative) Urine Urobilinogen Negative (Negative) Ur Leukocyte Esterase Trace H (Negative) Urine WBC (Auto) 10-30 H (0-5) /hpf Urine RBC (Auto) 10-30 H (0-4) /hpf U Hyaline Cast (Auto) 5-10 H (0-5) /lpf U Epithel Cells (Auto) >30 H (0-5) /lpf Urine Bacteria (Auto) 1+ H (Negative) Salicylates (2.8-20) mg/dl Urine Opiates Screen Neg (Neg) Ur Methadone, Qual Neg (Neg) Acetaminophen (10-30) ug/ml Urine Barbiturates Neg (Neg) Ur Phencyclidine (PCP) Neg (Neg) U Amphetamin/Meth Scrn Neg (Neg) MDMA (Ecstasy) Screen Neg (Neg) U Benzodiazepines Scrn Neg (Neg) Ur Cocaine Metabolite Neg (Neg) U Marijuana (THC) Screen Neg (Neg) Ethyl Alcohol mg/dL < 3.0 (0-3) mg/dl Blood Pressure Blood Pressure Findings: Low blood pressure Blood Pressure Disposition: did not require urgent referral MDM Narrative Patient here voluntarily admitting to acute paranoia and hallucinations and requesting inpatient admission. Patient with similar presentations on prior voluntary admissions. Patient does admit that her symptoms may be the result of drug abuse. Patient currently denies any drug abuse. Patient's labs reassuring. Patient seen and evaluated by psychiatric casework supervisor and referred [facility] for [facility]. Impression & Plan Depression, Acute paranoia, Hallucinations Discharge Plan Visit Data *Final* Discharge Date/Time: 07/02/19 21:31 Chief Complaint: Mental Health Evaluation Stated Complaint: DEPRESSION, ANXIETY ED Provider: Radha Llamas Discharge Problem: Depression, Acute paranoia, Hallucinations Patient Disposition: Admitted As Inpatient Discharge Instructions Interventions: ED Discharge Assessment Last Done: 07/02/19 21:31 Discharge Problem: Depression Qualifiers: Depression Type: unspecified Qualified Code(s): F32.9 - Major depressive disorder, single episode, unspecified The scribe's documentation has been prepared under my direction and personally reviewed by me in its entirety. I confirm that the note above accurately reflects all work, treatment, procedures, and medical decision making performed by me.
[2019-07-02] MEDS ORDERED: SODIUM CHLORIDE 0.65% NA SOLN 45 ML (OCEAN) PRN (20:53)
[2019-07-02] MEDS ORDERED: ALUMINUM/MAGNESIUM SUSP 30 ML UDC PO PRN (20:53)
[2019-07-02] MEDS ORDERED: BISMUTH SUBSALICYLATE PER ML OMNICELL CHARGE PO PRN (20:53)
[2019-07-02] MEDS ORDERED: MAGNESIUM HYDROXIDE SUSP 30 ML UDC PO PRN (20:53)
[2019-07-02] MEDS ORDERED: OLANZapine 5 MG TABLET PO PRN (20:57)
[2019-07-03] MEDS: ACETAMINOPHEN 325 MG TAB PO PRN ×2 (11:25→19:45)
[2019-07-03] MEDS ORDERED: PROPRANOLOL HCL 10 MG TAB PO STA (11:31)
--- NOTE | 2019-07-03 12:25 | History & Physical ---
Date of Service July 03, 2019 Impression / Recommendations Impression Rachel is a 18 yo female with a history of significant meth use who presents with recurrent SI and paranoia with thought disorder despite a period of sobriety. She has be non-compliant with prescribed medications and is currently too disorganized to contract for safety/care for self outside of the hospital. (1) Thought disorder: The patient was admitted to the [facility] ([facility] unit) on q15 min checks (behavioral with suicide precautions) for safety. The patient will participate in group, recreational, and milieu therapies and will be offered additional individual and family sessions as clinically appropriate. Risks/benefits/alternatives reviewed re: restart of Zyprexa and propranolol pending [facility] records. She is only agreeable to these medications but should be considered for injectable given course of past 4-6 weeks. Many of her issues were felt to be substance induced last stay but will likely meet criteria for schizoaffective do, bipolar type. Discussion included but was not limited to need for monitoring for metabolic and tD and patient's fasting labs were drawn last stay. Inventory Assets Strengths: housing with mother, signed voluntary this stay Needs: med compliance, confirm status with outpatient providers Risk Factors Assessment Male: No : Yes Do You Have Access To A Gun?: No Mental Health Diagnoses: Yes Substance Use Disorders: Yes Previous Attempt: No Previous Psychiatric Hospitalization: Yes Smoker: Yes Protective Factors Assessment : No Responsible for Young Children: No Employed: No Supportive Family: Yes Psychiatric History Identifying Data RACHEL BISHOP is a 18-year-old F who currently lives in [place] with her mother, has a history of significant meth abuse and prior admissions for disorganized psychosis, and was admitted on 07/02/19 20:54 on a 201 voluntary commitment for SI and paranoia. Chief Complaint "Those meds I was on were a mess, I didn't take them, now I'm anxious, no wait I'm depressed, What?". History of Present Illness Last admission at [facility] was 05/23-06/01, was using meth around that time for very disorganized psychosis with mood lability (screaming, threatening self-harm in ED). She was stabilized on Zyprexa and referred for a variety of services, not clear if she complied but states she has been clean and sober. Since discharge she was admitted to the [facility] around 06/07/19 where is appears propranolol was added to her regimen. She is not able to tell me if this was for anxiety or akathisia. She adds that she had some daytime sedation and affective blunting with daytime Zyprexa and ultimately sought admission to [facility] around 06/18/19. Records are not available and she did not fill any prescriptions from that stay per report and external med history. She presented to ED this admission stating she hadn't slept for several days with a nonspecific belief that someone was trying to harm her. She was disheveled and disorganized and also expressed SI, no specific plan though obviously could use again. She is significantly thought blocked and cannot provide accurate information about her ADLs and depressive symptoms between boughts of smiling inappropriately, as if responding to internal stimuli. Past Psychiatric History Current Psychiatric Diagnosis: Psychotic Mood Disorder, Acute Paranoia, Anxiety, Depression Outpatient Services: was referred to [facility], and [facility] for case management. She does confirm meeting with Natali Marion. Previous Psych Admissions: [facility], 2019 [facility] Do You Have Access To A Gun?: No History of Previous Suicide Attempt: No Describe Attempts in the Past: Ideations, no hx of attempts Past Medication Trials: 2015 Vyvanse, sertraline, 2018 Zyprexa, Trintellix 10/15, hydroxyzine, propanolol [address] Makc, misuse of Xanax off the street Past Head Trauma/Neuro History History of Concussion/Seizure: No Allergies Allergy/AdvReac Type Severity Reaction Status Date / Time No Known Allergies Allergy Verified 06/17/19 23:22 Home Medications Home Medications Medication Instructions Recorded Confirmed Type No Known Home Medications 07/02/19 07/02/19 History Family History Family History of: Doesn't Know Family Mental Health History Comment: Father had addiction issues and from overdose Alcohol History Hx of Alcohol Use Over the Past 12 Months: Yes AUDIT Total Score: 1 Smoking Use Have You Smoked or Used Tobacco Products in the Last 30 Days: Yes tobacco type: cigarettes Smoking Status: Current some day smoker Substance History Hx of Prescription Med Misuse Over the Past 12 Months: No Hx of Over the Counter Med Misuse Over the Past 12 Months: No Hx of Inhalent Misuse Over the Past 12 Months: No Hx of Organic Substance Use Over the Past 12 Months: No Hx of Illegal Substances/Street Drug Use Over Past 12 Months: Yes (amphetamines + meth, last use 05/17) Problems as a Result of Past Substance Use: Life out of Control Personal History Living Arrangements: Home Employment Status: Unemployed Marital Status: Single Number Of Children: none Beliefs That Will Affect Care: None Current Legal Problems: No Psychological Trauma History Comment: unable to obtain Patient History Medical History ADHD (attention deficit hyperactivity disorder) Anxiety (Acute) Depression (Acute) History of frequent headaches Methamphetamine abuse Mood disorder (Acute) Nicotine dependence Polysubstance abuse (Acute) Thought disorder (Inactive) Surgical History No pertinent past surgical history Family History Other No significant family history Social History Preferred Language: Moroccan Communication Ability: Effective Catering And Events Manager Required: No Beliefs That Will Affect Care: None Current Living Situation: Family Feels Safe at Home: Yes Smoking Status: Current some day smoker Tobacco Type: cigarettes ; Hx Alcohol Use: No Hx Substance Use: Yes substance use type: methamphetamine Review of Systems Review of Systems: All systems reviewed & are unremarkable except as noted in HPI & below Physical Exam Psychiatric: Orientation: alert, oriented to person and oriented to place Apperance: + disheveled Eye Contact: + fair eye contact restless nonspontaneous at times due to blocking mood is reported at depressed, mood inappropriately bright at times Thought Process: + thought blocking Thought Content: + preoccupation and + paranoid nonspecific SI, no intent or plan on unit Homicidal Thoughts: denies homicidal thoughts Hallucinations: no auditory hallucinations and no visual hallucinations Cognition: + recent memory not intact, + remote memory not intact and + attention not intact Insight: + poor insight Judgement: + poor judgement Vital Signs (Past 24 Hours): Last Vital Signs Temp 36.8 C 07/02/19 21:59 Pulse 64 07/02/19 21:59 Resp 14 07/02/19 21:59 BP 112/72 07/02/19 21:59 Pulse Ox 100 07/02/19 20:14 Physical Examination: A physical exam was performed in the ED by Dr. Patel for the purposes of medical clearance. I accept that physical as correct and adequate for the purposes of the inpatient physical exam. Results & Data Laboratory Results Laboratory Results - last 24 hr 07/02/19 07/02/19 07/02/19 19:12 19:12 19:12 WBC 8.05 RBC 3.84 L Hgb 12.4 Hct 37.6 MCV 97.9 MCH 32.3 MCHC 33.0 RDW Std Deviation 45.4 RDW Coeff of Maye 12.6 Plt Count 287 MPV 9.7 Immature Gran % (Auto) 0.1 Neut % (Auto) 76.5 Lymph % (Auto) 14.8 Josephine % (Auto) 8.1 Eos % (Auto) 0.4 Baso % (Auto) 0.1 Immature Gran # (Auto) 0.01 Neut # (Auto) 6.16 Lymph # (Auto) 1.19 L Josephine # (Auto) 0.65 H Eos # (Auto) 0.03 Baso # (Auto) 0.01 Sodium 139 Potassium 4.7 Chloride 109 H Carbon Dioxide 28 Anion Gap 2.0 L BUN 8 Creatinine 0.55 L Est Cr Clr Drug Dosing Not Reportable Est GFR ( Amer) > 150.0 Est GFR (Non-Af Amer) 135.0 BUN/Creatinine Ratio 14.8 Glucose 90 Calcium 9.6 Total Bilirubin 0.3 AST 11 L ALT 15 Alkaline Phosphatase 66 Total Protein 7.7 Albumin 4.1 Globulin 3.6 Albumin/Globulin Ratio 1.1 TSH 1.190 Urine Color Urine Appearance Urine pH Ur Specific [place] Urine Protein Urine Glucose (UA) Urine Ketones Urine Blood Urine Nitrite Urine Bilirubin Urine Urobilinogen Ur Leukocyte Esterase Urine WBC (Auto) Urine RBC (Auto) U Hyaline Cast (Auto) U Epithel Cells (Auto) Urine Bacteria (Auto) Salicylates 2.7 L Urine Opiates Screen Ur Methadone, Qual Acetaminophen < 2 L Urine Barbiturates Ur Phencyclidine (PCP) U Amphetamin/Meth Scrn MDMA (Ecstasy) Screen U Benzodiazepines Scrn Ur Cocaine Metabolite U Marijuana (THC) Screen Ethyl Alcohol mg/dL 07/02/19 07/02/19 07/02/19 19:12 19:26 19:26 WBC RBC Hgb Hct MCV MCH MCHC RDW Std Deviation RDW Coeff of Maye Plt Count MPV Immature Gran % (Auto) Neut % (Auto) Lymph % (Auto) Josephine % (Auto) Eos % (Auto) Baso % (Auto) Immature Gran # (Auto) Neut # (Auto) Lymph # (Auto) Josephine # (Auto) Eos # (Auto) Baso # (Auto) Sodium Potassium Chloride Carbon Dioxide Anion Gap BUN Creatinine Est Cr Clr Drug Dosing Est GFR ( Amer) Est GFR (Non-Af Amer) BUN/Creatinine Ratio Glucose Calcium Total Bilirubin AST ALT Alkaline Phosphatase Total Protein Albumin Globulin Albumin/Globulin Ratio TSH Urine Color Yellow Urine Appearance Turbid A Urine pH 7.5 Ur Specific [place] 1.012 Urine Protein Negative Urine Glucose (UA) Negative Urine Ketones Negative Urine Blood 2+ H Urine Nitrite Negative Urine Bilirubin Negative Urine Urobilinogen Negative Ur Leukocyte Esterase Trace H Urine WBC (Auto) 10-30 H Urine RBC (Auto) 10-30 H U Hyaline Cast (Auto) 5-10 H U Epithel Cells (Auto) >30 H Urine Bacteria (Auto) 1+ H Salicylates Urine Opiates Screen Neg Ur Methadone, Qual Neg Acetaminophen Urine Barbiturates Neg Ur Phencyclidine (PCP) Neg U Amphetamin/Meth Scrn Neg MDMA (Ecstasy) Screen Neg U Benzodiazepines Scrn Neg Ur Cocaine Metabolite Neg U Marijuana (THC) Screen Neg Ethyl Alcohol mg/dL < 3.0 Current Inpatient Medications Current Inpatient Medications: Current Inpatient Medications Acetaminophen (Tylenol) 650 mg PO Q4H PRN PRN Reason: Headache or Minor Fever Stop: 08/01/19 20:52 Last Admin: 07/03/19 11:25 Dose: 650 mg Documented by: Al Hydrox/Mg Hydrox/Simethicone (Maalox) 30 ml PO Q4H PRN PRN Reason: GI Upset Stop: 08/01/19 20:52 Bismuth Subsalicylate (Kaopectate) 15 ml PO PRN PRN PRN Reason: Loose Stool Stop: 08/01/19 20:52 Hydroxyzine HCl (Vistaril) 50 mg PO HSZ PRN PRN Reason: Insomnia Stop: 08/01/19 20:52 Hydroxyzine HCl (Vistaril) 25 mg PO Q4H PRN PRN Reason: Anxiety Stop: 08/01/19 20:52 Magnesium Hydroxide (Milk Of Magnesia) 30 ml PO DAILY PRN PRN Reason: Constipation Stop: 08/01/19 20:52 Olanzapine (Zyprexa) 5 mg PO Q8 PRN PRN Reason: Anxiety/Agitation Stop: 08/01/19 21:59 Olanzapine (Zyprexa) 5 mg PO HS NIYAH Stop: 08/02/19 21:59 Propranolol HCl (Inderal) 10 mg PO TID NIYAH Stop: 08/02/19 20:59 Sodium Chloride (Gordon Nasal) 1 - 2 sprays NA PRN PRN PRN Reason: Nasal Dryness/Congestion Stop: 08/01/19 20:52
[2019-07-03] MEDS: PROPRANOLOL HCL 10 MG TAB PO SCH (21:25)
[2019-07-03] MEDS: OLANZapine 5 MG TABLET PO SCH (21:25)
--- NOTE | 2019-07-04 10:36 | Psychiatric Progress Note ---
Date of Service July 04, 2019 Impression / Recommendations Impression Rachel is a 18 yo female with a history of significant meth use who presents with recurrent SI and paranoia with thought disorder despite a period of sobriety. She has be non-compliant with prescribed medications and is currently too disorganized to contract for safety/care for self outside of the hospital. She signed a 72 hour notice on 07/03 and is being held for ongoing assessment as unable to contract for safety or participate in care planning due to her condition. (1) Thought disorder: 07/03--The patient was admitted to the [facility] ([facility] mental health unit) on q15 min checks (behavioral with suicide precautions) for safety. The patient will participate in group, recreational, and milieu therapies and will be offered additional individual and family sessions as clinically appropriate. Risks/benefits/alternatives reviewed re: restart of Zyprexa and propranolol pending [facility] records. She is only agreeable to these medications but should be considered for injectable given course of past 4-6 weeks. Many of her issues were felt to be substance induced last stay but will likely meet criteria for schizoaffective do, bipolar type. Discussion included but was not limited to need for monitoring for metabolic and TD and patient's fasting labs were drawn last stay. 07/04--continue same. Inventory Assets Strengths: housing with mother, signed voluntary this stay Needs: med compliance, confirm status with outpatient providers Risk Factors Assessment Male: No : Yes Do You Have Access To A Gun?: No Mental Health Diagnoses: Yes Substance Use Disorders: Yes Previous Attempt: No Previous Psychiatric Hospitalization: Yes Smoker: Yes Protective Factors Assessment : No Responsible for Young Children: No Employed: No Supportive Family: Yes Interval History Chief Complaint "I'm not talking today". Review of Systems Sleep Information Total Hours of Sleep: 8 Sleep Comments: pt awoke x2 , each time to get juice/milk out of the refrigerator and returned back to bed with one minute. pt on q-15 minute checks Meal Information Percent Meal Consumed - Breakfast: 50 Percent Meal Consumed - Lunch: 100 Percent Meal Consumed - Dinner: 100 Nutrition Comment: per meal record Subjective Subjective Patient was seen & assessed and interval progress reviewed with treatment team. Patient has a history of elopement with a male visitor, same one that visited last night and he was very disrespectful to staff. Patient signed a 72 hour notice to leave care. Today she does not want to engage in discussion around her treatment plan or medication. Staff feel she was more organized as the day progressed but clearly has difficulty processing directions and outpatient care plan due to her hx of meth use. Physical Exam Psychiatric Orientation: + uncooperative Apperance: + disheveled Eye Contact: + poor eye contact Motor Behavior: no abnormal motor movements nonspontaneous Affect: + blunted affect Mood: + irritable mood Thought Process: + thought blocking Thought Content: + preoccupation Suicidal Thoughts: denies suicidal thoughts Homicidal Thoughts: denies homicidal thoughts Hallucinations: no auditory hallucinations and no visual hallucinations Cognition: language grossly intact; + attention not intact Insight: + poor insight Judgement: + poor judgement Vital Signs (Past 24 Hours) Last Vital Signs Temp 36.5 C 07/04/19 06:43 Pulse 70 07/04/19 06:44 Resp 18 07/04/19 06:43 BP 104/69 07/04/19 06:44 Pulse Ox 100 07/02/19 20:14 A physical exam was performed in the ED by Dr. Patel for the purposes of medical clearance. I accept that physical as correct and adequate for the purposes of the inpatient physical exam. Results & Data Current Inpatient Medications Current Inpatient Medications: Current Inpatient Medications Acetaminophen (Tylenol) 650 mg PO Q4H PRN PRN Reason: Headache or Minor Fever Stop: 08/01/19 20:52 Last Admin: 07/03/19 19:45 Dose: 650 mg Documented by: Al Hydrox/Mg Hydrox/Simethicone (Maalox) 30 ml PO Q4H PRN PRN Reason: GI Upset Stop: 08/01/19 20:52 Benzocaine (Orajel 20%) 1 appln MT QID PRN PRN Reason: tooth pain Stop: 08/02/19 19:50 Bismuth Subsalicylate (Kaopectate) 15 ml PO PRN PRN PRN Reason: Loose Stool Stop: 08/01/19 20:52 Hydroxyzine HCl (Vistaril) 50 mg PO HSZ PRN PRN Reason: Insomnia Stop: 08/01/19 20:52 Hydroxyzine HCl (Vistaril) 25 mg PO Q4H PRN PRN Reason: Anxiety Stop: 08/01/19 20:52 Magnesium Hydroxide (Milk Of Magnesia) 30 ml PO DAILY PRN PRN Reason: Constipation Stop: 08/01/19 20:52 Olanzapine (Zyprexa) 5 mg PO Q8 PRN PRN Reason: Anxiety/Agitation Stop: 08/01/19 21:59 Last Admin: 07/03/19 15:29 Dose: 5 mg Documented by: Olanzapine (Zyprexa) 5 mg PO HS NIYAH Stop: 08/02/19 21:59 Last Admin: 07/03/19 21:25 Dose: 5 mg Documented by: Propranolol HCl (Inderal) 10 mg PO TID NIYAH Stop: 08/02/19 20:59 Last Admin: 07/03/19 21:25 Dose: 10 mg Documented by: Sodium Chloride ([place] Nasal) 1 - 2 sprays NA PRN PRN PRN Reason: Nasal Dryness/Congestion Stop: 08/01/19 20:52 Mental Health & Subst Abuse Tx Psychiatrist Name of Psychiatrist: [facility] Psychiatrist's Psychiatric Appointment Comment: [address] [place] [address], [facility] [address] Therapist Name of Therapist: Livier Therapist's Date of Therapist Appointment: 07/07/19 Time of Therapist Appointment: 11:30 a.m. Therapy Appointment Comment: [address], [address], [facility] [address] Dry Ice Maker Name of Dry Ice Maker: [facility] Natali Doni Phone Number for Dry Ice Maker: [phone] Post Discharge Appointments Primary Care Physician Name Of Family Doctor: Arianne Thomas Primary Care Provider Appointment Comment: [address], [place] [address] Contact Information Discharge Discharge Address: [address] [place] [address], [place]
[2019-07-04] MEDS: PROPRANOLOL HCL 10 MG TAB PO SCH ×3 (10:49→21:15)
[2019-07-04] MEDS: BENZOCAINE 20% (ORAJEL) 11.9 GM TUBE MT PRN ×4 (12:06→23:58)
[2019-07-04] MEDS: OLANZapine 5 MG TABLET PO SCH (21:15)
[2019-07-05] MEDS: ACETAMINOPHEN 325 MG TAB PO PRN (00:24)
[2019-07-05] MEDS: PROPRANOLOL HCL 10 MG TAB PO SCH ×3 (10:56→20:49)
--- NOTE | 2019-07-05 13:56 | Psychiatric Progress Note ---
Date of Service July 05, 2019 Impression / Recommendations Impression Rachel is a 18 yo female with a history of significant meth use who presents with recurrent SI and paranoia with thought disorder despite a period of sobriety. She has be non-compliant with prescribed medications and is currently too disorganized to contract for safety/care for self outside of the hospital. She signed a 72 hour notice on 07/03 and is being held for ongoing assessment as unable to contract for safety or participate in care planning due to her condition. (1) Thought disorder: 07/03--The patient was admitted to the [facility] ([facility] health unit) on q15 min checks (behavioral with suicide precautions) for safety. The patient will participate in group, recreational, and milieu therapies and will be offered additional individual and family sessions as clinically appropriate. Risks/benefits/alternatives reviewed re: restart of Zyprexa and propranolol pending [place] records. She is only agreeable to these medications but should be considered for injectable given course of past 4-6 weeks. Many of her issues were felt to be substance induced last stay but will likely meet criteria for schizoaffective do, bipolar type. Discussion included but was not limited to need for monitoring for metabolic and TD and patient's fasting labs were drawn last stay. 07/04--continue same. 07/05 - Continue treatment plan as above; olanzapine 5mg qHS and propranolol 10mg TID - Pt had submitted a 72-hour notice earlier in her stay; based on lack of safe discharge plan, a discharge today is not felt to be appropriate and ongoing inpatient treatment is recommended - Meeting with watch caser this afternoon - Pt remains preoccupied with housing options, and it seems as though she may rescind her notice if acceptable housing is not available - Based on patient's non-compliance with medications in the outpatient setting and inability to contract for safety outside of the hospital presently, it may be appropriate for patient to rescind her 72-hour notice if agreeable and focus on a more optimal discharge plan - this may include exploration of willingness for an SAEED which would improve medication adherence and continued mood stability Inventory Assets Strengths: housing with mother, signed voluntary this stay Needs: med compliance, confirm status with outpatient providers Risk Factors Assessment Male: No : Yes Do You Have Access To A Gun?: No Mental Health Diagnoses: Yes Substance Use Disorders: Yes Previous Attempt: No Previous Psychiatric Hospitalization: Yes Smoker: Yes Protective Factors Assessment : No Responsible for Young Children: No Employed: No Supportive Family: Yes Interval History Identifying Information RACHEL BISHOP is a 18-year-old F who currently lives in [place] with her mother, has a history of significant meth abuse and prior admissions for di sorganized psychosis, and was admitted on 07/02/19 20:54 on a 201 voluntary commitment for SI and paranoia. Chief Complaint "Is this going to take very long? I have another meeting sometime today with my watch caser to discuss housing." Review of Systems Notes Constitutional: denied Cardiovascular: denied Respiratory: denied Gastrointestinal: denied Neurological: denied Psychiatric: denies symptoms other than stated above Total of at least 10 systems reviewed, pertinent positives as above and in HPI. Sleep Information Total Hours of Sleep: 5 Sleep Comments: pt given vistaril per rn. pt on q-15 minute checks Meal Information Percent Meal Consumed - Breakfast: 75 Percent Meal Consumed - Lunch: 100 Percent Meal Consumed - Dinner: 100 Nutrition Comment: per meal record Subjective Subjective Patient was seen & assessed and interval progress reviewed with nursing and social work. Staff reports the patient has been demonstrating improved behavioral control overall. There was a reported incident last evening in which patient was yelling loudly, reportedly relating this to dental pain. Otherwise, she has been attending and participating in group programming, generally later in the afternoons when she is more awake. Patient does have a meeting scheduled with her watch caser this afternoon at 330. 72-hour notice remains in place at this time. Patient was seen today to assess progress since admission. She is agreeable to meet with this provider, also verbalizing consent for Bessie Lopez, onboarding JONATHAN for our department, to be present for duration of visit. Even though our conversation occur several hours prior to her watch caser visiting, patient does inquire "is this going to take very long?" Patient is highly focused on her meeting with her watch caser, as she states that she is planning to ask to be put "a shelter." Patient spent most of the visit explaining her belief that her unstable living environment is negatively affecting her own mental health stability. Patient states "I am not crazy, they are crazy. And I have to put up with it every day." At one point, patient states "I am so paranoid that people are following me, or trying to figure out where I am staying." Patient does admit to motivation to get better and leave the inpatient setting; however, she does not feel that this is a reasonable thing to expect if she is forced to return home with her mother. Patient denies side effects related to resuming olanzapine and propranolol. She admits to conditional suicidal ideation, as it relates to feeling as though she has nowhere safe to return after discharge. Pt denies safety concerns here on the unit. She denies other needs or concerns from staff at this time. Physical Exam Psychiatric Orientation: alert, oriented x 3 and + guarded (superficially cooperative) Apperance: appropriately dressed, + disheveled (short, blonde hair appearing unkempt) and appeared stated age Eye Contact: good eye contact Motor Behavior: no abnormal motor movements (mildly restless) Speech: normal rate/rhythm/volume of speech Affect: + anxious affect and mood congruent with affect Mood: + anxious mood Thought Process: goal directed thought process, clear/coherent thought process and + concrete thought process Thought Content: reality based without delusions Suicidal Thoughts: denies suicidal thoughts Conditional SI reported, as she feels she does not currently have a safe discharge plan Homicidal Thoughts: denies homicidal thoughts Hallucinations: no auditory hallucinations and no visual hallucinations Cognition: attention grossly intact and language grossly intact Insight: + poor insight Judgement: + poor judgement Vital Signs (Past 24 Hours) Last Vital Signs Temp 36.5 C 07/04/19 06:43 Pulse 88 07/05/19 12:59 Resp 18 07/04/19 06:43 BP 110/78 07/05/19 12:59 Pulse Ox 100 07/02/19 20:14 . Results & Data Current Inpatient Medications Current Inpatient Medications: Current Inpatient Medications Acetaminophen (Tylenol) 650 mg PO Q4H PRN PRN Reason: Headache or Minor Fever Stop: 08/01/19 20:52 Last Admin: 07/05/19 00:24 Dose: 650 mg Documented by: Al Hydrox/Mg Hydrox/Simethicone (Maalox) 30 ml PO Q4H PRN PRN Reason: GI Upset Stop: 08/01/19 20:52 Benzocaine (Orajel 20%) 1 appln MT QID PRN PRN Reason: tooth pain Stop: 08/02/19 19:50 Last Admin: 07/04/19 23:58 Dose: 1 appln Documented by: Bismuth Subsalicylate (Kaopectate) 15 ml PO PRN PRN PRN Reason: Loose Stool Stop: 08/01/19 20:52 Hydroxyzine HCl (Vistaril) 50 mg PO HSZ PRN PRN Reason: Insomnia Stop: 08/01/19 20:52 Last Admin: 07/05/19 00:23 Dose: 50 mg Documented by: Hydroxyzine HCl (Vistaril) 25 mg PO Q4H PRN PRN Reason: Anxiety Stop: 08/01/19 20:52 Magnesium Hydroxide (Milk Of Magnesia) 30 ml PO DAILY PRN PRN Reason: Constipation Stop: 08/01/19 20:52 Olanzapine (Zyprexa) 5 mg PO Q8 PRN PRN Reason: Anxiety/Agitation Stop: 08/01/19 21:59 Last Admin: 07/03/19 15:29 Dose: 5 mg Documented by: Olanzapine (Zyprexa) 5 mg PO HS NIYAH Stop: 08/02/19 21:59 Last Admin: 07/04/19 21:15 Dose: 5 mg Documented by: Propranolol HCl (Inderal) 10 mg PO TID NIYAH Stop: 08/02/19 20:59 Last Admin: 07/05/19 13:01 Dose: 10 mg Documented by: Sodium Chloride ([place] Nasal) 1 - 2 sprays NA PRN PRN PRN Reason: Nasal Dryness/Congestion Stop: 08/01/19 20:52 Mental Health & Subst Abuse Tx Psychiatrist Name of Psychiatrist: [facility] Psychiatrist's Date of Appointment with Psychiatrist: 07/22/19 Time of Appointment with Psychiatrist: 10:00 Psychiatric Appointment Comment: [address] [facility], [place] [address] Therapist Name of Therapist: [facility] Therapist's Date of Therapist Appointment: 07/07/19 Time of Therapist Appointment: 11:30 a.m. Therapy Appointment Comment: [address] [facility], [address], [facility] [address] Pressurizer Name of Pressurizer: [employer] [facility] Natali Marion Phone Number for Pressurizer: [phone] Post Discharge Appointments Primary Care Physician Name Of Family Doctor: Arianne Thomas Primary Care Provider Appointment Comment: [address], [place] [address] Contact Information Discharge Discharge Address: [address] [place] [address], [place], [place]
[2019-07-05] MEDS: BENZOCAINE 20% (ORAJEL) 11.9 GM TUBE MT PRN (20:48)
[2019-07-05] MEDS: OLANZapine 5 MG TABLET PO SCH (20:49)
[2019-07-06] MEDS: PROPRANOLOL HCL 10 MG TAB PO SCH ×2 (09:21→13:47)
--- NOTE | 2019-07-06 10:38 | Discharge Summary ---
Date of Service July 06, 2019 History of Present Illness Last admission at [facility] was 05/23-06/01, was using meth around that time for very disorganized psychosis with mood lability (screaming, threatening self-harm in ED). She was stabilized on Zyprexa and referred for a variety of services, not clear if she complied but states she has been clean and sober. Since discharge she was admitted to the [facility] around 06/07/19 where is appears propranolol was added to her regimen. She is not able to tell me if this was for anxiety or akathisia. She adds that she had some daytime sedation and affective blunting with daytime Zyprexa and ultimately sought admission to [facility] around 06/18/19. Records are not available and she did not fill any prescriptions from that stay per report and external med history. She presented to ED this admission stating she hadn't slept for several days with a nonspecific belief that someone was trying to harm her. She was disheveled and disorganized and also expressed SI, no specific plan though obviously could use again. She is significantly thought blocked and cannot pro vide accurate information about her ADLs and depressive symptoms between boughts of smiling inappropriately, as if responding to internal stimuli. Physical Exam Psychiatric Orientation: alert, oriented x 3 and cooperative Apperance: appropriately dressed, appropriately groomed and appeared stated age Eye Contact: + fair eye contact Motor Behavior: steady gait and station Bouncing legs up and down throughout the assessment Speech: normal rate/rhythm/volume of speech Affect: + anxious affect Mood: + anxious mood Patient states she is anxious about the interview with [facility], but otherwise reports significant improvement in mood and anxiety symptoms since admission. Thought Process: goal directed thought process Thought Content: reality based without delusions Suicidal Thoughts: denies suicidal thoughts Homicidal Thoughts: denies homicidal thoughts Hallucinations: no auditory hallucinations, no visual hallucinations and no tactile hallucinations Cognition: recent memory grossly intact, attention grossly intact and language grossly intact Insight: + limited insight Judgement: + limited judgement Vital Signs (Past 24 Hours) Last Vital Signs Temp 36.5 C 07/04/19 06:43 Pulse 99 H 07/06/19 09:19 Resp 18 07/06/19 09:19 BP 107/75 07/06/19 09:19 Pulse Ox 100 07/02/19 20:14 . Principal Diagnosis Psychosis not otherwise specified Rule out schizoaffective disorder bipolar type versus substance-induced psychosis Methamphetamine use disorder Psychiatric Data The patient was hospitalized on our unit for 4 days. She is known to us from a recent hospitalization 05/2019, during which she was diagnosed with methamphetamine use disorder, mood disorder NOS, and psychosis NOS with concern for substance-induced psychosis. She was discharged 06/01/2019, and in the 1 month in between her admissions to our facility, she was hospitalized at 2 other psychiatric hospitals, [facility]. On admission, her UDS was negative, and she denied using methamphetamine in approximately 2 months. If the substance use history is accurate, it is more likely that she has a primary thought disorder, possibly schizoaffective disorder bipolar type. She was a poor historian and unable to provide details about her symptoms and time course, and her BCM shared that although the patient has denied using methamphetamine, she is not necessarily a reliable historian. Records from her most recent hospitalizations were requested, but still have not been received at the time of discharge. She stated she was only willing to resume olanzapine and propanolol, medications which she reported had previously been effective. Recommendations were made for a long-acting injectable given her history of nonadherence, but she was unwilling. The thought blocking and disorganization that were prominent on admission improved throughout the course of her stay. She was able to appropriately participate in groups, and took medications willingly. She was observed to be eating and sleeping well, and performing her ADLs independently. She continued to have mild disorganization and inappropriate laughter, but did not engage in aggressive or threatening behavior or self-injurious behavior. She refused to sign releases for family or involve her mother in treatment, stating that she would not return to live with her mother. Her second night in the hospital, she had an older male visitor whom she had attempted to elope with during her last hospitalization. He appeared to be under the influence, was hostile and verbally aggressive to staff and the patient, and was asked to leave. She submitted a 72-hour notice requesting to withdrawal from treatment, stating she was now on medication, "so I'm fine." Her BCM was contacted and reported that the patient appears to be paranoid at baseline, will sit outside her mother's home stating she feels unsafe, and has cognitive impairment at baseline. She was helping the patient to apply for the CRR, but as she has no income, she cannot access those services. Her mother has also shown signs of mental instability. After her last discharge from our facility 1 month ago, the patient was abusing Adderall and marijuana, but still reported to her BCM that she was "clean." Her BCM also reported that the patient told her that she prostitutes herself to end for the man who visited her on the unit. Her BCM met with her in the hospital the day prior to discharge, and during the meeting the patient was visually anxious and distressed, stating that if she left the hospital without a stable place to stay, she might become suicidal. She was encouraged to rescind her 72-hour notice and fully engage in treatment, but refused. Her BCM had contacted [facility] regarding housing programs, but they had nothing available. The patient agreed to contact [facility] and completed a phone intake, and they indicated she had previously applied while she was at [place], but there had been a miscommunication. They requested to come and see her on the unit. Patient continued to display immature behavior, for example talking in a childlike voice and refusing to get out of bed or take medications at times. She complained of tooth pain, reported she had been losing teeth and had rotten teeth, and reported relief with oragel. She displayed very limited insight. Historical information from previous hospitalization reviewed: Mother reported patient has a long history of substance abuse, nonadherence with outpatient treatment, and family history of substance abuse (patient's father abused drugs and in 09/2018 from an overdose). She stated the patient had been in a relationship with a 50-year-old male for about a year, and she had been using methamphetamine with him. He visited her while she was in the hospital and she attempted to elope from the unit with him. Day of Discharge Assessment Staff report the patient has attended and participated in some groups, continues to be restless, focused on wanting stable housing after discharge. She had an in person meeting scheduled with staff from [facility] this morning, but it has been postponed due to poor weather and will now be held after lunch. She continues to deny suicidal thoughts, is taking medications as prescribed, and consistently denying thoughts of harming herself or others. On my assessment, she states that her mood and anxiety have improved significantly since admission, and she denies paranoia, hallucinations, and thoughts of harming herself or anyone else. She feels her medications are helping, and would like to continue them after discharge. She is agreeing to follow-up with outpatient treatment as scheduled. She is aware of the recommendations not to use illicit drugs or prescription medications that are not hers or are addictive or abusable, but is unable to describe any sort of plan to abstain from substances. She is focused predominantly on housing, and is anxious about her meeting with [facility] and whether or not they will accept her, stating that if she does not have stable housing, she will likely decompensate. She is reassured that the social sciences lecturer will sit with her during the interview. She denies side effects to medications, and continues to refuse to resend her 72-hour notice and stay for further treatment. Patient completed her interview and was accepted at [facility]. Transition of Care Transition Of Care Record: was reviewed with the patient Advance Directives Advance Directives Information Provided: Yes Advance Directives: No Mental Health Advance Directive: No Advance Directives on File: No Living Will: No Power of Tap And Die Maker Technician: No Advance Directives Reason:: Declines as Mental Health Visit. Risk Factors Assessment Risk factors were mitigated by admission to the inpatient unit, use of medications to target mood, anxiety, and psychotic symptoms, attempts to get records from her recent hospitalizations, coordination of care with outpatient treatment providers, meeting with her outpatient BCM, education about her diagnoses and the recommended treatment, education about the risks of substance use and recommendations for abstinence, assistance with identifying housing, involvement in groups and therapy, working on healthy coping skills and a discharge safety plan. She was encouraged to involve supports in treatment, but declined. She demonstrated limited insight and submitted a 72-hour notice requesting to withdrawal from treatment which expires today. She has been encouraged to rescind this and to remain in treatment for further stabilization, but has declined. As she is no longer at acute risk of harm to herself or others, she will be discharged and managed as an outpatient at this time. She does remain at increased risk for harm to herself compared to the general population given her risk factors of recurrent episodes of mood and psychotic symptoms, substance use, limited insight, lack of stable supports, lack of emplo yment, and history of limited adherence to treatment recommendations, but most of these risk factors are unlikely to be mitigated by further inpatient treatment, and she is unwilling to remain in treatment voluntarily and does not meet involuntary commitment criteria. Male: No : Yes Do You Have Access To A Gun?: No Health Problems: Yes (Tooth decay) Mental Health Diagnoses: Yes Substance Use Disorders: Yes Previous Attempt: No Previous Psychiatric Hospitalization: Yes Hopelessness: No Smoker: Yes Protective Factors Assessment Hindu Beliefs: No : No Responsible for Young Children: No Employed: No Stable Relationships: No Supportive Family: Yes Tobacco Cessation at Discharge Tobacco Cessation Medication Prescribed at Discharge: Offered & Pt Refused Total Time Total Time Spent: Greater Than 30 Minutes Total Time Includes: Examination of the patient, Discharge Planning and Medication Reconciliation Discharge Data Lab Results 07/02/19 07/02/19 07/02/19 19:12 19:12 19:12 WBC 8.05 RBC 3.84 L Hgb 12.4 Hct 37.6 MCV 97.9 MCH 32.3 MCHC 33.0 RDW Std Deviation 45.4 RDW Coeff of Maye 12.6 Plt Count 287 MPV 9.7 Immature Gran % (Auto) 0.1 Neut % (Auto) 76.5 Lymph % (Auto) 14.8 [place] % (Auto) 8.1 Eos % (Auto) 0.4 Baso % (Auto) 0.1 Immature Gran # (Auto) 0.01 Neut # (Auto) 6.16 Lymph # (Auto) 1.19 L [place] # (Auto) 0.65 H Eos # (Auto) 0.03 Baso # (Auto) 0.01 Sodium 139 Potassium 4.7 Chloride 109 H Carbon Dioxide 28 Anion Gap 2.0 L BUN 8 Creatinine 0.55 L Est Cr Clr Drug Dosing Not Reportable Est GFR ( Amer) > 150.0 Est GFR (Non-Af Amer) 135.0 BUN/Creatinine Ratio 14.8 Glucose 90 Calcium 9.6 Total Bilirubin 0.3 AST 11 L ALT 15 Alkaline Phosphatase 66 Total Protein 7.7 Albumin 4.1 Globulin 3.6 Albumin/Globulin Ratio 1.1 TSH 1.190 Urine Color Urine Appearance Urine pH Ur Specific [place] Urine Protein Urine Glucose (UA) Urine Ketones Urine Blood Urine Nitrite Urine Bilirubin Urine Urobilinogen Ur Leukocyte Esterase Urine WBC (Auto) Urine RBC (Auto) U Hyaline Cast (Auto) U Epithel Cells (Auto) Urine Bacteria (Auto) Salicylates 2.7 L Urine Opiates Screen Ur Methadone, Qual Acetaminophen < 2 L Urine Barbiturates Ur Phencyclidine (PCP) U Amphetamin/Meth Scrn MDMA (Ecstasy) Screen U Benzodiazepines Scrn Ur Cocaine Metabolite U Marijuana (THC) Screen Ethyl Alcohol mg/dL 07/02/19 07/02/19 07/02/19 19:12 19:26 19:26 WBC RBC Hgb Hct MCV MCH MCHC RDW Std Deviation RDW Coeff of Maye Plt Count MPV Immature Gran % (Auto) Neut % (Auto) Lymph % (Auto) [place] % (Auto) Eos % (Auto) Baso % (Auto) Immature Gran # (Auto) Neut # (Auto) Lymph # (Auto) [place] # (Auto) Eos # (Auto) Baso # (Auto) Sodium Potassium Chloride Carbon Dioxide Anion Gap BUN Creatinine Est Cr Clr Drug Dosing Est GFR ( Amer) Est GFR (Non-Af Amer) BUN/Creatinine Ratio Glucose Calcium Total Bilirubin AST ALT Alkaline Phosphatase Total Protein Albumin Globulin Albumin/Globulin Ratio TSH Urine Color Yellow Urine Appearance Turbid A Urine pH 7.5 Ur Specific [place] 1.012 Urine Protein Negative Urine Glucose (UA) Negative Urine Ketones Negative Urine Blood 2+ H Urine Nitrite Negative Urine Bilirubin Negative Urine Urobilinogen Negative Ur Leukocyte Esterase Trace H Urine WBC (Auto) 10-30 H Urine RBC (Auto) 10-30 H U Hyaline Cast (Auto) 5-10 H U Epithel Cells (Auto) >30 H Urine Bacteria (Auto) 1+ H Salicylates Urine Opiates Screen Neg Ur Methadone, Qual Neg Acetaminophen Urine Barbiturates Neg Ur Phencyclidine (PCP) Neg U Amphetamin/Meth Scrn Neg MDMA (Ecstasy) Screen Neg U Benzodiazepines Scrn Neg Ur Cocaine Metabolite Neg U Marijuana (THC) Screen Neg Ethyl Alcohol mg/dL < 3.0 Hospital Course (1) Thought disorder: 07/03--The [facility] on q15 min checks (behavioral with suicide precautions) for safety. The patient will participate in group, recreational, and milieu therapies and will be offered additional individual and family sessions as clinically appropriate. Risks/benefits/alternatives reviewed re: restart of Zyprexa and propranolol pending [facility] records. She is only agreeable to these medications but should be considered for injectable given course of past 4-6 weeks. Many of her issues were felt to be substance induced last stay but will likely meet criteria for schizoaffective do, bipolar type. Discussion included but was not limited to margarita mcdermott for monitoring for metabolic and TD and patient's fasting labs were drawn last stay. 07/04--continue same. 07/05 - Continue treatment plan as above; olanzapine 5mg qHS and propranolol 10mg TID - Pt had submitted a 72-hour notice earlier in her stay; based on lack of safe discharge plan, a discharge today is not felt to be appropriate and ongoing inpatient treatment is recommended - Meeting with vocational case manager this afternoon - Pt remains preoccupied with housing options, and it seems as though she may rescind her notice if acceptable housing is not available - Based on patient's non-compliance with medications in the outpatient setting and inability to contract for safety outside of the hospital presently, it may be appropriate for patient to rescind her 72-hour notice if agreeable and focus on a more optimal discharge plan - this may include exploration of willingness for an SAEED which would improve medication adherence and continued mood stability 07/06 - Patient submitted a 72-hour notice which expires today. She is unwilling to resend it. She is taking medications orally and states willingness to continue medications and outpatient treatment. I agree that a long-acting inje ctable antipsychotic would be preferable given her history of nonadherence, but she has not been willing to transition to a medication available in the SAEED formulation. This should be reconsidered should she be present for inpatient treatment. -Interview with [facility] today, and discharge afterwards. -Follow-up with Paty Ma at [place] for medication management, and dual diagnosis therapy at [place]. -Reviewed recommendations to stabilize psychotic and anxiety symptoms, specifically continuing medications, daily structure/schedule, adherence with outpatient appointments, and abstinence from drugs and alcohol. -Differential includes substance-induced psychosis, primary thought disorder such as schizophrenia or schizoaffective disorder, or mood disorder with psychosis. As the patient is a very limited historian, and is not reliable with respect to her substance use, definitive diagnosis remains unclear. (2) Anxiety: Resumed on propanolol which the patient reported had been previously effective; tolerating well. (3) Methamphetamine abuse: 07/06 -methamphetamine use confirmed with + UDS at the time of last hospitalization 05/22/2019. Patient denied recent methamphetamine use during this hospitalization, but is not a reliable historian. Her BCM reports she was abusing Adderall and cannabis after discharge from our unit 1 month ago; no other reliable source of collateral information available. (4) Polysubstance abuse: Mental Health & Subst Abuse Tx Psychiatrist Name of Psychiatrist: Evelyn Sun [facility] Psychiatrist's Date of Appointment with Psychiatrist: 07/22/19 Time of Appointment with Psychiatrist: 10:00 a.m. Psychiatric Appointment Comment: [id number], [facility] [address] Therap[facility] Date of Therapist Appointment: 07/07/19 Time of Therapist Appointment: 11:30 a.m. Therapy Appointment Comment: [address], [address], [facility] [address] Development Technician Name of Development Technician: [facility] - Natali Marion Phone Number for Development Technician: [phone] Date of Appointment with Development Technician: 07/08/19 Time of Appointment with Development Technician: 3:30 p.m. Post Discharge Appointments Primary Care Physician Name Of Family Doctor: Arianne Thomas Primary Care Provider Appointment Comment: [address], [place] [address] Smoking Cessation Counseling Tobacco Cessation Medication Prescribed at Discharge: Offered & Pt Refused Contact Information Discharge Discharge Address: [address] [place] [address] Discharge Plan Discharge Items Patient Disposition: Home - Self-Care Reason For Visit: DEPRESSION Discharge Diagnosis: Psychosis not otherwise specified Rule out schizoaffective disorder bipolar type, vs substance induced psychosis Methamphetamine use disorder Activity: Per Instructions section Non-emergency contact: Psychiatrist, Therapist and Manager Of Environmental Services Call non-emergency contact if: you have any medication questions and your symptoms worsen Follow-up/Referrals: Radha Thomas, [Primary Care Provider] - Diet: Regular Addtl Attending Provider Instructions: SPECIAL CARE INSTRUCTIONS: 1. Follow through with your scheduled aftercare appointments. If unable to keep an appointment, please call to reschedule. 2. Take your medication only as prescribed. Medication should not be changed or stopped without the approval of your doctor. In the event of worsening symptoms or concerns about side effects, contact your doctor immediately. 3. Utilize new healthy coping skills, anger management skills, and stress management skills learned during your hospitalization. Journal feelings and process them with a support person. Identify stressors or situations that may result in relapse, deterioration or inappropriate behaviors and develop a plan to deal with those issues. 4. If your coping skills are ineffective and you are in crisis, contact your outpatient providers for direction. If unable to reach your providers, please call the CAN HELP LINE AT or go to the closest Emergency Room. 5. Do not drink alcohol or take un-prescribed drugs. 6. You have been provided with the Mental Health Advance Directives Pamphlet for your review. AFTERCARE APPOINTMENTS: * Please call your insurance company prior to your scheduled appointment to confirm your aftercare providers are covered. Take your insurance information to your appointments. WHO TO CALL AND WHEN: Medical Emergencies: For questions or emergencies related to your hospital stay, please contact the Inpatient Behavioral Health Unit at [phone]. A parachute packer is on-call 19/01 for the Behavioral Health Unit for emergencies At any time you feel your situation is an emergency, you may also call 911 immediately. Your Doctors Instructions noted above were prepared by provider Jacqueline Snowden MD. Pending Studies at Discharge: No Stand-Alone Forms: My [facility], Smoking Cessation, Suicide Prevention Resources Medications and DC Order Prescriptions: New propranolol 10 mg Tablet 10 mg PO TID Qty: 45 RF: 0 olanzapine 5 mg Tablet 5 mg PO HS Qty: 15 RF: 0 No Action No Known Home Medications RF: 0 Discharge Orders: Discharge Order (Routine); Ordered 07/06/19 Ordered By: Jacqueline Snowden Admission Data Admit Date/Time: 07/02/19 20:54 Attending Provider: Estelita Oakley Admit Provider: Estelita Oakley Primary Care Provider: Radha Thomas Other Interventions: Discharge Summary Assessment (RN) Last Done: 07/06/19 11:31 PSY Interdisciplinary Discharge Planning Last Done: 07/06/19 14:03 DC Date/Time DO NOT enter until pt leaves facility: 07/06/19 15:30 Coding Level of Care Code 85787 D/C day mgmt > 30 min Diagnoses Thought disorder R41.89 Anxiety F41.9 Methamphetamine abuse F15.10 Polysubstance abuse F19.10
== END 2019-07-06 15:30 | disposition home or self-care (01) | DRG 885 ==
LOC: ED 18:10 → 3S 20:54

== ENCOUNTER 2019-09-19 20:53 | Inpatient (IN) ==
[2019-09-19 21:18] LABS: Appearance Urine Clear (Clear); Bilirubin Urine Negative (Negative); Blood Urine 2+ (Negative); Color Urine Yellow; Glucose Urine UA Negative (Negative); Ketones Urine Negative (Negative); Leukocyte Esterase Urine Trace (Negative); Nitrite Urine Negative (Negative); Protein Urine Negative (Negative); Specific Gravity Urine 1.015 (1.000-1.030); Urobilinogen Urine Negative (Negative); pH Urine 8.5 (4.5-7.5)
[2019-09-19 21:28] LABS: Epithelial Cell Urine >30 /lpf (0-5)
[2019-09-19 21:29] LABS: Bacteria Urine Negative (Negative)
--- NOTE | 2019-09-19 21:36 | Emergency Department Note ---
History of Present Illness General Chief complaint: Anxiety Stated complaint: ANXIETY,DEPRESSED Time Seen by Provider: 09/19/19 21:08 History of Present Illness Provider complaint: Anxiety Maximum Pain Intensity: 9 18-year-old female presents to the emergency department for anxiety and depression. Patient states she stopped taking her olanzapine and is now anxious stressed and depressed. Patient states she has had and having difficulty sleeping, loss of interest in things that his peers could be [place], decreased energy decreased concentration and decreased appetite. Patient states she has suicidal thoughts but no plan. No access to any firearms. Home Medications Home Medications Medication Instructions Recorded Confirmed Type olanzapine 5 mg PO HS #15 tab 07/06/19 09/19/19 Rx propranolol 10 mg PO TID #45 tab 07/06/19 09/19/19 Rx Allergies Allergy/AdvReac Type Severity Reaction Status Date / Time No Known Allergies Allergy Verified 08/21/19 21:43 Past Med/Surg History Medical History ADHD (attention deficit hyperactivity disorder) Anxiety (Acute) History of frequent headaches Methamphetamine abuse Mood disorder (Acute) Nicotine dependence Polysubstance abuse (Acute) Thought disorder Social History Preferred Language: Cameroonian Communication Ability: Effective 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 Beliefs That Will Affect Care: None Current Living Situation: Family Feels Safe at Home: Yes Smoking Status: Current every day smoker Tobacco Type: cigarettes ; Hx Alcohol Use: No Hx Substance Use: No Review of Systems A total of 10 systems reviewed and were otherwise negative Physical Exam Vital Signs Vital Signs - 24 hr 09/19/19 20:58 Temperature 36.6 C Temperature Source Oral Pulse Rate 108 H Respiratory Rate 20 Respiratory Effort / Characteristics Non-Labored Spontaneous Respiratory Depth Normal Respiratory Pattern Regular Blood Pressure 121/78 Blood Pressure Mean 92 Pulse Oximetry 96 Oxygen Delivery Method Room Air Sepsis Recent Fever Within 48 Hours No Sepsis New/Unexplained Change in Mental Status No Sepsis Action Taken by Nursing No Action Required Physical Exam GENERAL: She is oriented to person, place, and time. She appears well-developed and well-nourished. She does not appear distressed. HENT: Exam performed. -Head: Normocephalic and atraumatic. -Right Ear: External ear normal. No mastoid tenderness. -Left Ear: External ear normal. No mastoid tenderness. -Mouth/Throat: The oropharynx is clear and moist. No trismus in the jaw. No dental abscesses or uvula swelling. No oropharyngeal exudate or tonsillar abscesses. EYES: Conjunctivae and EOM are normal. Pupils are equal, round, and reactive to light. Right eye exhibits no discharge. Left eye exhibits no discharge. No scleral icterus. NECK: Normal range of motion. Neck supple. No JVD present. No spinous process tenderness present. No carotid bruit present. No rigidity. No tracheal deviation and normal range of motion present. No Brudzinski's sign and no Kernig's sign noted. CV: Normal rate, regular rhythm, normal heart sounds and intact distal pulses. There is no peripheral edema. Palpable radial pulses bue. PULM/CHEST: Effort normal and breath sounds normal. No respiratory distress. No stridor. She has no wheezes. She has no rales. -Chest Wall: She exhibits no tenderness. ABD: The abdomen is soft. Bowel sounds are normal. She has no distension. No mass is present. There is no tenderness. There is no rebound, no guarding, no Garza's sign and no tenderness at McBurney's point. Rovsig negative MUSC/SKEL: Normal range of motion. There is no peripheral edema, tenderness or deformity. LYMPH: No cervical adenopathy. NEURO: She is alert and oriented to person, place, and time. She has normal strength. No cranial nerve deficit or sensory deficit. Coordination and gait normal. GCS eye subscore is 4. GCS verbal subscore is 5. GCS motor subscore is 6. Cerebellar tests wnl. SKIN: Skin is warm and dry. She is not diaphoretic. PSYCH: Bizarre affect positive suicidal ideation. Course Course 2109: The patient was evaluated in room A5. A complete history and physical exam was performed. 4: Patient medically cleared. 0: Patient wants to be admitted voluntarily for psychiatric treatment. Awaiting psychiatric placement. Case signed out to Dr. Zepeda Medical Decision Making Laboratory Data Result diagrams: 09/19/19 21:32 09/19/19 21:32 Lab Results 09/19/19 09/19/19 09/19/19 Range/Units 21:06 21:06 21:32 WBC 6.05 (4.8-10.8) K/uL RBC 4.10 L (4.2-5.4) M/uL Hgb 13.1 (12.0-16.0) g/dL Hct 39.3 (37-47) % MCV 95.9 (80-100) fL MCH 32.0 (25-34) pg MCHC 33.3 (32-36) g/dL RDW Std Deviation 45.0 (36.4-46.3) fL RDW Coeff of Maye 12.9 (11.5-14.5) % Plt Count 333 (130-400) K/uL MPV 9.6 (7.4-10.4) fL Immature Gran % (Auto) 0.2 % Neut % (Auto) 67.8 % Lymph % (Auto) 22.6 % Divide % (Auto) 8.4 % Eos % (Auto) 0.8 % Baso % (Auto) 0.2 % Immature Gran # (Auto) 0.01 (0.00-0.02) K/uL Neut # (Auto) 4.10 (1.4-6.5) K/uL Lymph # (Auto) 1.37 (1.2-3.4) K/uL Divide # (Auto) 0.51 (0.11-0.59) K/uL Eos # (Auto) 0.05 (0-0.5) K/uL Baso # (Auto) 0.01 (0-0.2) K/uL Sodium (136-145) mmol/L Potassium (3.5-5.1) mmol/L Chloride (98-107) mmol/L Carbon Dioxide (21-32) mmol/L Anion Gap (3-11) BUN (7-18) mg/dl Creatinine (0.6-1.2) mg/dl Est Cr Clr Drug Dosing ml/min Est GFR ( Amer) Est GFR (Non-Af Amer) BUN/Creatinine Ratio (10-20) Glucose (70-99) mg/dl Calcium (8.5-10.1) mg/dl Total Bilirubin (0.2-1) mg/dl AST (15-37) U/L ALT (12-78) U/L Alkaline Phosphatase (45-117) U/L Total Protein (6.4-8.2) gm/dl Albumin (3.4-5.0) gm/dl Globulin (2.5-4.0) gm/dl Albumin/Globulin Ratio (0.9-2) TSH (0.300-4.500) uIu/ml HCG, Qual (Negative) Urine Color Yellow Urine Appearance Clear (Clear) Urine pH 8.5 H (4.5-7.5) Ur Specific [place] 1.015 (1.000-1.030) Urine Protein Negative (Negative) Urine Glucose (UA) Negative (Negative) Urine Ketones Negative (Negative) Urine Blood 2+ H (Negative) Urine Nitrite Negative (Negative) Urine Bilirubin Negative (Negative) Urine Urobilinogen Negative (Negative) Ur Leukocyte Esterase Trace H (Negative) Urine RBC 10-30 H (0-4) /hpf Urine WBC 5-10 H (0-5) /hpf Ur Epithelial Cells >30 H (0-5) /lpf Urine Bacteria Negative (Negative) Salicylates (2.8-20) mg/dl Urine Opiates Screen Neg (Neg) Ur Methadone, Qual Neg (Neg) Acetaminophen (10-30) ug/ml Urine Barbiturates Neg (Neg) Ur Phencyclidine (PCP) Neg (Neg) U Amphetamin/Meth Scrn Neg (Neg) MDMA (Ecstasy) Screen Neg (Neg) U Benzodiazepines Scrn Neg (Neg) Ur Cocaine Metabolite Neg (Neg) U Marijuana (THC) Screen Neg (Neg) Ethyl Alcohol mg/dL (0-3) mg/dl 09/19/19 09/19/19 09/19/19 Range/Units 21:32 21:32 21:32 WBC (4.8-10.8) K/uL RBC (4.2-5.4) M/uL Hgb (12.0-16.0) g/dL Hct (37-47) % MCV (80-100) fL MCH (25-34) pg MCHC (32-36) g/dL RDW Std Deviation (36.4-46.3) fL RDW Coeff of Maye (11.5-14.5) % Plt Count (130-400) K/uL MPV (7.4-10.4) fL Immature Gran % (Auto) % Neut % (Auto) % Lymph % (Auto) % Divide % (Auto) % Eos % (Auto) % Baso % (Auto) % Immature Gran # (Auto) (0.00-0.02) K/uL Neut # (Auto) (1.4-6.5) K/uL Lymph # (Auto) (1.2-3.4) K/uL Divide # (Auto) (0.11-0.59) K/uL Eos # (Auto) (0-0.5) K/uL Baso # (Auto) (0-0.2) K/uL Sodium 141 (136-145) mmol/L Potassium 3.9 (3.5-5.1) mmol/L Chloride 109 H (98-107) mmol/L Carbon Dioxide 26 (21-32) mmol/L Anion Gap 6.0 (3-11) BUN 7 (7-18) mg/dl Creatinine 0.47 L (0.6-1.2) mg/dl Est Cr Clr Drug Dosing 147.7 ml/min Est GFR ( Amer) > 150.0 Est GFR (Non-Af Amer) 142.2 BUN/Creatinine Ratio 14.9 (10-20) Glucose 93 (70-99) mg/dl Calcium 8.8 (8.5-10.1) mg/dl Total Bilirubin 0.2 (0.2-1) mg/dl AST 21 (15-37) U/L ALT 25 (12-78) U/L Alkaline Phosphatase 67 (45-117) U/L Total Protein 7.6 (6.4-8.2) gm/dl Albumin 3.8 (3.4-5.0) gm/dl Globulin 3.8 (2.5-4.0) gm/dl Albumin/Globulin Ratio 1.0 (0.9-2) TSH 3.730 (0.300-4.500) uIu/ml HCG, Qual (Negative) Urine Color Urine Appearance (Clear) Urine pH (4.5-7.5) Ur Specific [place] (1.000-1.030) Urine Protein (Negative) Urine Glucose (UA) (Negative) Urine Ketones (Negative) Urine Blood (Negative) Urine Nitrite (Negative) Urine Bilirubin (Negative) Urine Urobilinogen (Negative) Ur Leukocyte Esterase (Negative) Urine RBC (0-4) /hpf Urine WBC (0-5) /hpf Ur Epithelial Cells (0-5) /lpf Urine Bacteria (Negative) Salicylates 1.9 L (2.8-20) mg/dl Urine Opiates Screen (Neg) Ur Methadone, Qual (Neg) Acetaminophen < 2 L (10-30) ug/ml Urine Barbiturates (Neg) Ur Phencyclidine (PCP) (Neg) U Amphetamin/Meth Scrn (Neg) MDMA (Ecstasy) Screen (Neg) U Benzodiazepines Scrn (Neg) Ur Cocaine Metabolite (Neg) U Marijuana (THC) Screen (Neg) Ethyl Alcohol mg/dL 3.4 H (0-3) mg/dl 09/19/19 Range/Units 21:35 WBC (4.8-10.8) K/uL RBC (4.2-5.4) M/uL Hgb (12.0-16.0) g/dL Hct (37-47) % MCV (80-100) fL MCH (25-34) pg MCHC (32-36) g/dL RDW Std Deviation (36.4-46.3) fL RDW Coeff of Maye (11.5-14.5) % Plt Count (130-400) K/uL MPV (7.4-10.4) fL Immature Gran % (Auto) % Neut % (Auto) % Lymph % (Auto) % Divide % (Auto) % Eos % (Auto) % Baso % (Auto) % Immature Gran # (Auto) (0.00-0.02) K/uL Neut # (Auto) (1.4-6.5) K/uL Lymph # (Auto) (1.2-3.4) K/uL Divide # (Auto) (0.11-0.59) K/uL Eos # (Auto) (0-0.5) K/uL Baso # (Auto) (0-0.2) K/uL Sodium (136-145) mmol/L Potassium (3.5-5.1) mmol/L Chloride (98-107) mmol/L Carbon Dioxide (21-32) mmol/L Anion Gap (3-11) BUN (7-18) mg/dl Creatinine (0.6-1.2) mg/dl Est Cr Clr Drug Dosing ml/min Est GFR ( Amer) Est GFR (Non-Af Amer) BUN/Creatinine Ratio (10-20) Glucose (70-99) mg/dl Calcium (8.5-10.1) mg/dl Total Bilirubin (0.2-1) mg/dl AST (15-37) U/L ALT (12-78) U/L Alkaline Phosphatase (45-117) U/L Total Protein (6.4-8.2) gm/dl Albumin (3.4-5.0) gm/dl Globulin (2.5-4.0) gm/dl Albumin/Globulin Ratio (0.9-2) TSH (0.300-4.500) uIu/ml HCG, Qual Negative (Negative) Urine Color Urine Appearance (Clear) Urine pH (4.5-7.5) Ur Specific [place] (1.000-1.030) Urine Protein (Negative) Urine Glucose (UA) (Negative) Urine Ketones (Negative) Urine Blood (Negative) Urine Nitrite (Negative) Urine Bilirubin (Negative) Urine Urobilinogen (Negative) Ur Leukocyte Esterase (Negative) Urine RBC (0-4) /hpf Urine WBC (0-5) /hpf Ur Epithelial Cells (0-5) /lpf Urine Bacteria (Negative) Salicylates (2.8-20) mg/dl Urine Opiates Screen (Neg) Ur Methadone, Qual (Neg) Acetaminophen (10-30) ug/ml Urine Barbiturates (Neg) Ur Phencyclidine (PCP) (Neg) U Amphetamin/Meth Scrn (Neg) MDMA (Ecstasy) Screen (Neg) U Benzodiazepines Scrn (Neg) Ur Cocaine Metabolite (Neg) U Marijuana (THC) Screen (Neg) Ethyl Alcohol mg/dL (0-3) mg/dl MDM Narrative 2110: The patient was evaluated in room A5. A complete history and physical exam was performed. 2224: Patient medically cleared. 2310: Patient wants to be admitted voluntarily for psychiatric treatment. Awaiting psychiatric placement. Case signed out to Dr. Zepeda Impression & Plan Anxiety, Depression Discharge Plan Visit Data Chief Complaint: Anxiety Stated Complaint: ANXIETY,DEPRESSED ED Provider: Rehan Wu Discharge Problem: Anxiety, Depression Patient Disposition: Still a Patient Forms Stand Alone Forms: My [facility], Suicide Prevention Resources Prescriptions Prescriptions: No Action propranolol 10 mg Tablet 10 mg PO TID Qty: 45 RF: 0 olanzapine 5 mg Tablet 5 mg PO HS Qty: 15 RF: 0 Referrals Referrals: Radha Thomas DO [Primary Care Provider] - Discharge Problem: Depression Qualifiers: Depression Type: unspecified Qualified Code(s): F32.9 - Major depressive disorder, single episode, unspecified
[2019-09-19 21:38] LABS: Amphetamines+Metham, Urine Neg (Neg); Barbiturates, Urine Neg (Neg); Benzodiazepine, Urine Neg (Neg); Cocaine, Urine Neg (Neg); MDMA (Ecstacy), Urine Neg (Neg); Methadone, Urine Neg (Neg); Opiate, Urine Neg (Neg); Phencyclidine, Urine Neg (Neg)
[2019-09-19 21:48] LABS: Basophils # (auto) 0.01 K/uL (0-0.2); Basophils % (auto) 0.2 %; Eosinophils # (auto) 0.05 K/uL (0-0.5); Eosinophils % (auto) 0.8 %; Hematocrit (blood only) 39.3 % (37-47); Hemoglobin 13.1 g/dL (12.0-16.0); Immature Granulocytes # (auto) 0.01 K/uL (0.00-0.02); Immature Granulocytes % (auto) 0.2 %; Lymphocytes # (auto) 1.37 K/uL (1.2-3.4); Lymphocytes % (auto) 22.6 %; Mean Corpuscular Hgb Conc 33.3 g/dL (32-36); Mean Corpuscular Volume 95.9 fL (80-100); Mean Platelet Volume 9.6 fL (7.4-10.4); Monocytes # (auto) 0.51 K/uL (0.11-0.59); Monocytes % (auto) 8.4 %; Neutrophils % (auto) 67.8 %; Platelet Count 333 K/uL (130-400); RDW Coefficient of Variation 12.9 % (11.5-14.5); White Blood Count 6.05 K/uL (4.8-10.8)
[2019-09-19 22:11] LABS: Alanine Aminotransferase 25 U/L (12-78); Albumin Level 3.8 gm/dl (3.4-5.0); Aspartate Aminotransferase 21 U/L (15-37); BUN Creatinine Ratio 14.9 (10-20); Blood Urea Nitrogen 7 mg/dl (7-18); Calcium 8.8 mg/dl (8.5-10.1); Carbon Dioxide 26 mmol/L (21-32); Chloride 109 mmol/L (98-107); Creatinine Clr Calc Pharmacy 147.7 ml/min; Est GFR (African American) > 150.0; Est GFR (Non-African American) 142.2; Glucose 93 mg/dl (70-99); Potassium 3.9 mmol/L (3.5-5.1); Sodium 141 mmol/L (136-145)
[2019-09-19 22:13] LABS: Pregnancy Test, Serum Negative (Negative)
[2019-09-19 22:22] LABS: Alkaline Phosphatase 67 U/L (45-117); Bilirubin,Total 0.2 mg/dl (0.2-1); Globulin 3.8 gm/dl (2.5-4.0); Total Protein 7.6 gm/dl (6.4-8.2)
[2019-09-19 22:26] LABS: Acetaminophen < 2 ug/ml (10-30); Salicylate 1.9 mg/dl (2.8-20)
[2019-09-20] MEDS ORDERED: ACETAMINOPHEN 325 MG TAB PO PRN (00:46)
[2019-09-20] MEDS ORDERED: MAGNESIUM HYDROXIDE SUSP 30 ML UDC PO PRN (00:46)
[2019-09-20] MEDS ORDERED: BISMUTH SUBSALICYLATE PER ML OMNICELL CHARGE PO PRN (00:46)
[2019-09-20] MEDS ORDERED: SODIUM CHLORIDE 0.65% NA SOLN 45 ML (OCEAN) PRN (00:46)
[2019-09-20] MEDS ORDERED: ALUMINUM/MAGNESIUM SUSP 30 ML UDC PO PRN (00:46)
--- NOTE | 2019-09-20 06:36 | Emergency Department Note ---
ED Visit Note I received this patient in signout at the change of shift from Dr. Wu pending final disposition. Patient was accepted at the [facility] for inpatient psychiatric care and secure transportation arrangements were made. Please see previous documentation for history, physical and visit. . : Depression Qualifiers: Depression Type: unspecified Qualified Code(s): F32.9 - Major depressive disorder, single episode, unspecified
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
[2019-09-20] MEDS: OLANZapine 5 MG TABLET PO PRN (11:11)
[2019-09-20] MEDS: PROPRANOLOL HCL 10 MG TAB PO PRN (11:11)
[2019-09-20] MEDS: NICOTINE 14 MG/24 HR PATCH TD SCH (20:30)
--- NOTE | 2019-09-21 10:09 | Psychiatric Progress Note ---
Date of Service September 21, 2019 Impression / Recommendations Impression 18-year-old female who lives locally with her mother and stepfather, has a complex psychiatric history with > 10 hospitalizations starting as a teenager, 6 of which have been in the past 4 months, polysubstance abuse, mood and psychotic symptoms, problems with anger outbursts and aggression, and noncompliance with treatment who presents with depression and suicidality in the context of medication noncompliance. She is an unreliable historian with respect to her substance abuse, stating she has been clean for a year, when she was hospitalized here 4 months ago for methamphetamine use with a + UDS, and 3 month s ago was abusing prescription stimulants, benzodiazepines, and cannabis. She has not followed up with outpatient services, although she was referred for psychiatric care, therapy, and case management during her hospitalization in 06/2019. We will need to get records from her most recent hospitalization at [facility] last month, and involve her parents for collateral and discharge planning. Pt is unwilling at this time to take scheduled doses of psychiatric medications, but continues to request prn medications intermittently. She is agreeable with referral for a psychiatric prescriber today. Will continue inpatient admission, despite submission of 72-hour notice, as patient is now reporting willingness for aftercare that she was previously declining. Inpatient treatment is medically necessary due to the severity of her symptoms and risk for suicide/self-harm if discharged. (1) Mood disorder: 09/19 -previous diagnoses include depression, bipolar disorder (per patient, not confirmed with records or by history), substance-induced mood and psychotic disorders, and rule out schizoaffective disorder bipolar type. Definitive diagnosis is limited by patient's poor participation in treatment and assessments, lack of access to records from other hospitalizations and outpatient care, and limited collateral information available currently, and she has not signed a release for her mother and stepfather. Her case is further complicated by her polysubstance abuse and noncompliance with treatment. -Patient has responded well to olanzapine in the past, but went off of it 2 weeks ago for unclear reasons. She is unwilling to participate in the assessment today, so we will start with reordering 5 mg every 6 hours as needed psychosis/mood instability. -If she agrees to resume the medication, we will need to check FLP and FG, as I cannot find any record of these in our system. -Provide psychoeducation regarding her diagnoses and the treatment recommendations, encouraged her to attend and participate in groups and therapy, work on healthy coping skills and discharge safety plan, and schedule family meeting with parents. -Request records from [facility] where she was hospitalized last month, and from outpatient providers. Coordinate care with her BCM, Natali Marion. Collateral information from family would be helpful, but she has cannot yet been willing to sign a release. 09/20 - Pt continues to decline scheduled doses of her psychiatric medications, but has been intermittently requesting prns - Due to concern for losing access to medications after discharge, patient did verbalize willingness for an outpatient psychiatric prescriber during encounter today - social work informed - 72-hour notice expires on 09/22 at 1240 (2) Anxiety: 09/19 -good response to propanolol in the past, will offer 10 mg 3 times daily as needed. Also has hydroxyzine as needed. 09/20 - As above, patient continues to request prn medications intermittently (3) Polysubstance abuse: 09/19 -elevated blood alcohol level on presentation; patient reported drinking 2 beers in an effort to calm herself down. Last known methamphetamine use was approximately 4 months ago, and was abusing alprazolam, cannabis, and prescription stimulants 3 months ago. Patient is not a reliable historian and claims that she has been sober for 12 months. Get collateral information from family. Avoid prescription of controlled substances given the high risk of abuse/misuse/negative outcomes. -Outpatient follow-up previously arranged at [facility]; unclear whether patient followed through with this. Risk Factors Assessment Male: No : Yes Do You Have Access To A Gun?: No Health Problems: No Mental Health Diagnoses: Yes Substance Use Disorders: Yes Previous Attempt: No Family History of Suicide: No Previous Psychiatric Hospitalization: Yes Hopelessness: Yes Smoker: Yes Protective Factors Assessment Synagogue Beliefs: No : No Responsible for Young Children: No Employed: No Stable Relationships: No Supportive Family: Yes Good Rapport with Provider: No Interval History Identifying Information ALEJANDRO BISHOP is a 18-year-old F who currently lives in [place] with her mother and stepfather, has a history of depression NOS, psychosis, treatment nonadherence, and methamphetamine abuse, and was admitted on 09/20/19 00:13 on a 201 voluntary commitment for depression and suicidal thoughts. Chief Complaint "Um, I'm fine. Still sleeping." Review of Systems Notes Constitutional: denied Cardiovascular: denied Respiratory: denied Gastrointestinal: denied Neurological: denied Psychiatric: denies symptoms other than stated above Total of at least 10 systems reviewed, pertinent positives as above and in HPI. Sleep Information Total Hours of Sleep: 10 Sleep Comments: sleep hours between the 09/06 and 05/05 shifts Meal Information Percent Meal Consumed - Breakfast: 0 Percent Meal Consumed - Lunch: 25 Percent Meal Consumed - Dinner: 100 Subjective Subjective Patient was seen & assessed and interval progress reviewed with treatment team. Staff report the patient has been largely isolated in her room, refusing group participation. Pt continues to decline aftercare services. She did submit a 72-hour notice which expires on 09/22 at 1240. Pt was seen today to assess gin benites since admission. Initially encounter occurred inpatient's room, as she had still not awoken for the day or had breakfast. Pt was limited in her willingness to discuss any aspects of her treatment at that time. This provider re-visited the patient later in the morning and was able to have a more insightful conversation. Pt states that she is planning to leave on 09/22 and states "I'll feel better, go home, get panicky, and come back to the hospital." Pt states that she is "stuck on this loop and I can't stop it." Pt was reminded that these hospitalizations can be helpful for identifying the cause for these loops and helping patients to overcome these patterns. Pt reiterated multiple times "but I can't tell anyone what's happening, I can't talk about it. I just keep waiting for someone to step in and help." Pt reminded that unless she is open to discussing her needs, it is difficult for supports to know what help she would benefit from. Pt continued to state "I don't want to talk about it, I can't talk about it." She does state that she is not experiencing auditory or visual hallucinations. She also adamantly denies SI at this time. She states she will just keep filling her medications and traveling with her "friend" with whom she states she feels "safe." Pt was reminded that unless she is working with an outpatient prescriber, she will eventually run out of psychiatric medications. She did appear to become panicked by this thought and asked additional questions on the topic. After further discussion, patient verbalized willingness for a psychiatric prescriber in order to be able to continues these medications after discharge. This information was passed along to social work. Pt denies other needs or concerns at this time. Physical Exam Psychiatric Orientation: alert and + guarded (only minimally cooperative ) Apperance: + disheveled (still sleeping) and appeared stated age Eye Contact: + fair eye contact Motor Behavior: steady gait and station and + psychomotor agitation (appearing rather restless) Speech: normal rate/rhythm/volume of speech Affect: + anxious affect Mood: + anxious mood Thought Process: goal directed thought process and + concrete thought process Thought Content: + preoccupation and + paranoid Suicidal Thoughts: denies suicidal thoughts, denies suicidal plan and denies suicidal intent Homicidal Thoughts: denies homicidal thoughts Hallucinations: no auditory hallucinations (denied) and no visual hallucinations (denied) Cognition: language grossly intact; + attention not intact Insight: + poor insight Judgement: + poor judgement Vital Signs (Past 24 Hours) Last Vital Signs Temp 36.4 C L 09/21/19 06:25 Pulse 78 09/21/19 06:26 Resp 18 09/21/19 06:25 BP 95/62 L 09/21/19 06:26 Pulse Ox 97 09/20/19 00:27 Results & Data ([facility]) Current Inpatient Medications Current Inpatient Medications: Current Inpatient Medications Acetaminophen (Tylenol) 650 mg PO Q4H PRN PRN Reason: Headache or Minor Fever Stop: 10/20/19 00:45 Al Hydrox/Mg Hydrox/Simethicone (Maalox) 30 ml PO Q4H PRN PRN Reason: GI Upset Stop: 10/20/19 00:45 Bismuth Subsalicylate (Kaopectate) 15 ml PO PRN PRN PRN Reason: Loose Stool Stop: 10/20/19 00:45 Hydroxyzine HCl (Vistaril) 50 mg PO HSZ PRN PRN Reason: Insomnia Stop: 10/20/19 00:45 Hydroxyzine HCl (Vistaril) 25 mg PO Q4H PRN PRN Reason: Anxiety Stop: 10/20/19 00:45 Last Admin: 09/20/19 18:19 Dose: 25 mg Documented by: Magnesium Hydroxide (Milk Of Magnesia) 30 ml PO DAILY PRN PRN Reason: Constipation Stop: 10/20/19 00:45 Miscellaneous (Remove Nicoderm Patch) 1 ea N/A DAILY@0859 [facility] Stop: 10/21/19 08:58 Nicotine (Nicoderm Cq) 14 mg TD QAM [facility] Stop: 10/20/19 14:14 Last Admin: 09/20/19 20:30 Dose: Not Given Documented by: Nicotine Polacrilex (Nicorette 2mg) 1 piece MT PRN PRN PRN Reason: nicotine cravings/withdrawal Stop: 10/20/19 13:59 Olanzapine (Zyprexa) 5 mg PO Q6H PRN PRN Reason: psychosis or mood instability Stop: 10/20/19 10:29 Last Admin: 09/20/19 11:11 Dose: 5 mg Documented by: Propranolol HCl (Inderal) 10 mg PO TID PRN PRN Reason: Anxiety Stop: 10/20/19 13:59 Last Admin: 09/20/19 11:11 Dose: 10 mg Documented by: Sodium Chloride ([place] Nasal) 1 - 2 sprays NA PRN PRN PRN Reason: Nasal Dryness/Congestion Stop: 10/20/19 00:45 Mental Health & Subst Abuse Tx Therapist Name of Therapist: Denies/None Furnace Checker Name of Furnace Checker: Denies/None Post Discharge Appointments Primary Care Physician Name Of Family Doctor: William
[2019-09-21] MEDS: NICOTINE 14 MG/24 HR PATCH TD SCH (10:28)
[2019-09-21] MEDS: NICOTINE POLACRILEX 2 MG GUM MT PRN (10:28)
[2019-09-21] MEDS: PROPRANOLOL HCL 10 MG TAB PO PRN ×2 (12:56→18:22)
[2019-09-21] MEDS: OLANZapine 5 MG TABLET PO PRN (15:38)
--- NOTE | 2019-09-22 10:25 | Psychiatric Progress Note ---
Date of Service September 22, 2019 Impression / Recommendations Impression 18-year-old female who lives locally with her mother and stepfather, has a complex psychiatric history with > 10 hospitalizations starting as a teenager, 6 of which have been in the past 4 months, polysubstance abuse, mood and psychotic symptoms, problems with anger outbursts and aggression, and noncompliance with treatment who presents with depression and suicidality in the context of medication noncompliance. She is an unreliable historian with respect to her substance abuse, stating she has been clean for a year, when she was hospitalized here 4 months ago for methamphetamine use with a + UDS, and 3 month s ago was abusing prescription stimulants, benzodiazepines, and cannabis. She has not followed up with outpatient services, although she was referred for psychiatric care, therapy, and case management during her hospitalization in 06/2019. We will need to get records from her most recent hospitalization at [facility] last month, and involve her parents for collateral and discharge planning. Pt is unwilling at this time to take scheduled doses of psychiatric medications, but continues to request prn medications intermittently. She is agreeable with referral for a psychiatric prescriber today. Will continue inpatient admission, despite submission of 72-hour notice, as patient is now reporting willingness for aftercare that she was previously declining. Anticipated discharge tomorrow afternoon at expiration of 72-hour notice. (1) Mood disorder: 09/19 -previous diagnoses include depression, bipolar disorder (per patient, not confirmed with records or by history), substance-induced mood and psychotic disorders, and rule out schizoaffective disorder bipolar type. Definitive diagnosis is limited by patient's poor participation in treatment and assessments, lack of access to records from other hospitalizations and outpatient care, and limited collateral information available currently, and she has not signed a release for her mother and stepfather. Her case is further complicated by her polysubstance abuse and noncompliance with treatment. -Patient has responded well to olanzapine in the past, but went off of it 2 w eeks ago for unclear reasons. She is unwilling to participate in the assessment today, so we will start with reordering 5 mg every 6 hours as needed psychosis/mood instability. -If she agrees to resume the medication, we will need to check FLP and FG, as I cannot find any record of these in our system. -Provide psychoeducation regarding her diagnoses and the treatment recommendations, encouraged her to attend and participate in groups and therapy, work on healthy coping skills and discharge safety plan, and schedule family meeting with parents. -Request records from [facility] where she was hospitalized last month, and from outpatient providers. Coordinate care with her BCM, Natali Marion. Collateral information from family would be helpful, but she has cannot yet been willing to sign a release. 09/20 - Pt continues to decline scheduled doses of her psychiatric medications, but has been intermittently requesting prns - Due to concern for losing access to medications after discharge, patient did verbalize willingness for an outpatient psychiatric prescriber during encounter today - social work informed - 72-hour notice expires on 09/22 at 1240 09/21 - Pt continues to be agreeable with referral for a psychiatric provider. States she would agree to a vocational case manager if unable to schedule a psychiatric appointment - social work attempting referrals for ongoing outpatient medication management. - Pt requesting discharge tomorrow, 72-hour notice expires tomorrow at 1240 and patient is unwilling to rescind (2) Anxiety: 09/19 -good response to propanolol in the past, will offer 10 mg 3 times daily as needed. Also has hydroxyzine as needed. 09/20 - As above, patient continues to request prn medications intermittently (3) Polysubstance abuse: 09/19 -elevated blood alcohol level on presentation; patient reported drinking 2 beers in an effort to calm herself down. Last known methamphetamine use was approximately 4 months ago, and was abusing alprazolam, cannabis, and prescription stimulants 3 months ago. Patient is not a reliable historian and claims that she has been sober for 12 months. Get collateral information from family. Avoid prescription of controlled substances given the high risk of abuse/misuse/negative outcomes. -Outpatient follow-up previously arranged at [facility]; unclear whether patient followed through with this. Risk Factors Assessment Male: No : Yes Do You Have Access To A Gun?: No Health Problems: No Mental Health Diagnoses: Yes Substance Use Disorders: Yes Previous Attempt: No Family History of Suicide: No Previous Psychiatric Hospitalization: Yes Hopelessness: Yes Smoker: Yes Protective Factors Assessment Uatsdin Beliefs: No : No Responsible for Young Children: No Employed: No Stable Relationships: No Supportive Family: Yes Good Rapport with Provider: No Interval History Identifying Information ALEJANDRO BISHOP is a 18-year-old F who currently lives in [place] with her mother and stepfather, has a history of depression NOS, psychosis, treatment nonadherence, and methamphetamine abuse, and was admitted on 09/20/19 00:13 on a 201 voluntary commitment for depression and suicidal thoughts. Chief Complaint "Um, I'm not sure I want to talk." Review of Systems Notes Constitutional: denied Cardiovascular: denied Respiratory: denied Gastrointestinal: denied Neurological: denied Psychiatric: denies symptoms other than stated above Total of at least 10 systems reviewed, pertinent positives as above and in HPI. Sleep Information Total Hours of Sleep: 7.25 Sleep Comments: sleep hours between the 09/06 and 05/05 shifts Meal Information Percent Meal Consumed - Breakfast: 0 Percent Meal Consumed - Lunch: 25 Percent Meal Consumed - Dinner: 75 Subjective Subjective Patient was seen & assessed and interval progress reviewed with nursing and social work. Staff report the patient continued to be rather withdrawn, but did appropriately participate in group therapy yesterday afternoon. She continues to appear restless and anxious, but has maintained that she is unwilling to process these thoughts and emotions with staff. Pt was seen today to assess progress since admission. This provider offered to walk laps with the patient during our conversation, which she declined. Pt did allow this provider to sit with her in the day area to discuss her stay thus far. Pt states that her sleep and appetite remain normal for her. She denies any mood concerns and denies SI or safety concerns. Pt states that she has arranged transportation for tomorrow afternoon, she is planning to be picked up by "a friend" at 12:30. Pt states that she feels ready for discharge and denies any additional goals of treatment. Pt remains willing for an outpatient psychiatric prescriber, even stating she would be agreeable with a vocational case manager if this was necessary to provide her with these services. When discussing a vocational case manager further, she states "I really don't want to talk anymore. There is something wrong with me." Pt was offered to process these thoughts and feelings and declined, again stating "I don't want to talk." Pt denies any additional need or concerns presently, this provider ended conversation as requested by patient. Physical Exam Psychiatric Orientation: alert, oriented x 3 and + guarded (only superficially cooperative) Apperance: appropriately dressed and + disheveled (appearing somewhat unkempt) Eye Contact: + fair eye contact (generally avoiding direct eye contact) Motor Behavior: steady gait and station (appearing restless and anxious) Speech: normal rate/rhythm/volume of speech (minimally engagement in conversation; brief responses to questions) Affect: + anxious affect Mood: + anxious mood Thought Process: goal directed thought process and + concrete thought process Limited ability to gauge as patient's cooperation with interview is limited Thought Content: + paranoid (hypervigilant); no delusions (pt does not verbalize any overtly delusional thought content) Suicidal Thoughts: denies suicidal thoughts and denies suicidal intent Homicidal Thoughts: denies homicidal thoughts Hallucinations: no auditory hallucinations and no visual hallucinations Cognition: language grossly intact; + attention not intact (easily distracted at baseline, limited attention ) Estimated Intelligence: + below average estimated intelligence Insight: + poor insight Judgement: + poor judgement Vital Signs (Past 24 Hours) Last Vital Signs Temp 36.4 C L 09/21/19 06:25 Pulse 75 09/21/19 18:25 Resp 18 09/21/19 06:25 BP 106/73 09/21/19 18:25 Pulse Ox 97 09/20/19 00:27 Results & Data ([facility]) Current Inpatient Medications Current Inpatient Medications: Current Inpatient Medications Acetaminophen (Tylenol) 650 mg PO Q4H PRN PRN Reason: Headache or Minor Fever Stop: 10/20/19 00:45 Al Hydrox/Mg Hydrox/Simethicone (Maalox) 30 ml PO Q4H PRN PRN Reason: GI Upset Stop: 10/20/19 00:45 Bismuth Subsalicylate (Kaopectate) 15 ml PO PRN PRN PRN Reason: Loose Stool Stop: 10/20/19 00:45 Hydroxyzine HCl (Vistaril) 50 mg PO HSZ PRN PRN Reason: Insomnia Stop: 10/20/19 00:45 Hydroxyzine HCl (Vistaril) 25 mg PO Q4H PRN PRN Reason: Anxiety Stop: 10/20/19 00:45 Last Admin: 09/21/19 13:32 Dose: 25 mg Documented by: Magnesium Hydroxide (Milk Of Magnesia) 30 ml PO DAILY PRN PRN Reason: Constipation Stop: 10/20/19 00:45 Miscellaneous (Remove Nicoderm Patch) 1 ea N/A DAILY@0859 [facility] Stop: 10/21/19 08:58 Last Admin: 09/21/19 10:25 Dose: 1 ea Documented by: Nicotine (Nicoderm Cq) 7 mg TD QAM [facility] Stop: 10/22/19 08:59 Nicotine Polacrilex (Nicorette 2mg) 1 piece MT PRN PRN PRN Reason: nicotine cravings/withdrawal Stop: 10/20/19 13:59 Last Admin: 09/21/19 10:28 Dose: 1 piece Documented by: Olanzapine (Zyprexa) 5 mg PO Q6H PRN PRN Reason: psychosis or mood instability Stop: 10/20/19 10:29 Last Admin: 09/21/19 15:38 Dose: 5 mg Documented by: Propranolol HCl (Inderal) 10 mg PO TID PRN PRN Reason: Anxiety Stop: 10/20/19 13:59 Last Admin: 09/21/19 18:22 Dose: 10 mg Documented by: Sodium Chloride ([place] Nasal) 1 - 2 sprays NA PRN PRN PRN Reason: Nasal Dryness/Congestion Stop: 10/20/19 00:45 Mental Health & Subst Abuse Tx Therapist Name of Therapist: Denies/None Nuclear Reactor Technician Name of Nuclear Reactor Technician: Denies/None Post Discharge Appointments Primary Care Physician Name Of Family Doctor: William
[2019-09-22] MEDS: NICOTINE POLACRILEX 2 MG GUM MT PRN ×2 (12:37→16:00)
[2019-09-22] MEDS: NICOTINE 7 MG/24 HR TDSY TD SCH (13:49)
[2019-09-22] MEDS: PROPRANOLOL HCL 10 MG TAB PO PRN (17:47)
[2019-09-22] MEDS: OLANZapine 5 MG TABLET PO PRN (19:59)
[2019-09-23] MEDS: NICOTINE POLACRILEX 2 MG GUM MT PRN ×2 (09:15→11:29)
[2019-09-23] MEDS: NICOTINE 7 MG/24 HR TDSY TD SCH (09:17)
--- NOTE | 2019-09-23 09:32 | Discharge Summary ---
Date of Service September 23, 2019 History of Present Illness Patient is well-known to me from multiple previous hospitalizations on our unit, most recently in June 2019, when she was diagnosed with psychosis NOS, anxiety NOS, and methamphetamine use disorder, and was discharged 07/07/2019 on olanzapine 5 mg at bedtime and propanolol 10 mg 3 times daily, with outpatient follow-up at [facility], and with case assistant Natali Marion. A long-acting injectable antipsychotic was recommended, but she submitted a 72- hour notice and was discharged from treatment as she did not meet involuntary commitment criteria. She has a complicated history, and at the time of her first hospitalization here in 04/2019, she was diagnosed with substance-induced psychosis, as she presented with acute psychosis in the context of methamphetamine abuse, was agitated and aggressive, and collateral sources of information indicated she had been abusing methamphetamine on a regular basis for at least 2 years, and was also abusing Xanax and cannabis. In the month between her hospitalizations here, she was hospitalized at [facility], and was reportedly abusing cannabis and Adderall. She was seen in the ER 08/21/2019 for anxiety, depression, and passive SI, had just returned home the day prior from a residential treatment program, and was not taking medication or participating in outpatient treatment. Her mother was involved, and she declined inpatient treatment and was ultimately discharged home. She re-presented to the ER again later that day, stating she only made it to the parking lot, and then came back inside and said she wanted to kill herself. Her mother reported she had been spending time with a 50-year-old man who is a meth addict, and the patient stated she wanted medication, but could not state what type of medication. She was ultimately transferred to [facility] for inpatient treatment on 08/22/2019. On this hospitalization, she presented to the ER 09/19/2019 reporting noncompliance with olanzapine x 2 weeks, with resulting worsening depression and anxiety. She endorsed difficulty sleeping, loss of interest, decreased energy, concentration, and appetite. She endorsed suicidal thoughts, and requested inpatient treatment. She was anxious, restless, and tearful, pacing and sobbing during the assessment in the ER. She could not identify who is prescribing her medication or if she had followed up with any outpatient treatment. She stated she stopped taking medication because it was not working, but reported worsening symptoms since stopping it. She said she had a "nervous breakdown that lasted 3 hours" prior to presentation, and asked her mother to bring her to the hospital. She initially denied using substances other than nicotine, but alcohol level was detected, and then reported drinking 2 beers prior to presentation. She then became very focused on her alcohol use, asking ER staff to delete that portion of her medical record. Admission labs were notable for BAL 3.4, remainder of UDS negative, RBC 4.10, chloride 109, creatinine 0.47, TSH normal, test negative, UA with elevated pH, 2+ blood, trace leukocyte esterase, 10-30 RBCs, 5-10 WBCs, and > 30 epithelial cells. She signed in voluntarily for treatment, and signed releases for [facility] and outpatient treatment that she was referred to at the time of her last discharge from our unit. She did not sign releases for her mother or stepfathe r, but said she would think about it. On my assessment today, multiple attempts were made to assess the patient, and interview was limited by sleepiness. She arrived on the unit at 00:30 and has been sleeping since, and missed breakfast. She admits to depressed mood and suicidal thoughts, but feels safe in the hospital. She denies auditory and visual hallucinations, paranoia, and does not express delusional thought content. She is vague and often states "I do not know" when asked about her recent history, including her hospitalization at [facility] 1 month (transferred) there from our ER 1 month ago), and if she had any outpatient follow-up after discharge. She indicates nonadherence with medications for at least the last 2 weeks, for unclear reasons. We requested [facility] records but have not yet received them. She denies substance abuse in the past few months, other than alcohol use yesterday prior to admission. Physical Exam Psychiatric Orientation: alert, oriented x 3 and + guarded (superficially cooperative ) Apperance: appropriately dressed, appropriately groomed (recently showered ) and appeared stated age Eye Contact: good eye contact Motor Behavior: steady gait and station and no abnormal motor movements Speech: normal rate/rhythm/volume of speech Affect: + anxious affect Mood: no anxious mood ("I'm fine, when can I go?") Thought Process: goal directed thought process and + concrete thought process Thought Content: not paranoid (persistent hypervigilance, but denying overt paranoia), no delusions (does not verbalize any delusional thought content ) and no hopelessness Suicidal Thoughts: denies suicidal thoughts and denies suicidal intent Homicidal Thoughts: denies homicidal thoughts Hallucinations: no auditory hallucinations and no visual hallucinations Cognition: language grossly intact Insight: + poor insight (chronically) Judgement: + poor judgement (chronically ) Vital Signs (Past 24 Hours) Last Vital Signs Temp 36.8 C 09/22/19 21:45 Pulse 92 H 09/22/19 17:15 Resp 18 09/21/19 06:25 BP 114/77 09/22/19 17:15 Pulse Ox 97 09/20/19 00:27 Principal Diagnosis - Mood disorder, unspecified (differential includes: substance-induced mood disorder, depressive disorder, bipolar disorder, schizoaffective disorder) - Anxiety disorder, unspecified - Polysubstance abuse Psychiatric Data 18-year-old female admitted voluntarily for inpatient psychiatric treatment on 09/20/2019 after presenting to the ED with reported anxiety, depression, and SI. Pt reports that she lives locally with her mother and stepfather, though is generally not there for a prolonged period of time. Pt has a complex psychiatric history with > 10 hospitalizations starting as a teenager, 6 of which have been in the past 4 months, polysubstance abuse, mood and psychotic symptoms, problems with anger outbursts and aggression, and noncompliance with treatment. She is an unreliable historian with respect to her substance abuse, stating on admission that she had been clean for a year, when in reality she was hospitalized here 4 months ago for methamphetamine use with a + UDS, and 3 months ago was abusing prescription stimulants, benzodiazepines, and cannabis. She had not followed up with outpatient services, although she was referred for psychiatric care, therapy, and case management during her hospitalization in 06/2019. Records from her recent hospitalization at [facility] last month were requested, but not received during her admission. Pt submitted her 72-hour notice as request to be discharged from inpatient treatment. This request was routinely reviewed - as patient was not demanding immediate discharge and was agreeable with aftercare services being set up, she was agreeable with being kept until the expiration of her 72-hour notice. Pt did agree with involvement of her mother, who provided collateral and participated in discussions regarding discharge planning. Pt remained unwilling during this admission to pursue scheduled doses of psychiatric medications, but did regularly request prn medications for anxiety. She did verbalize willingness for an outpatient therapist, psychiatric prescriber and a case assistant, with primary goal of being able to continue her medications after discharge - which she states have been helpful. As patient's 72-hour notice is to this afternoon at 12:40, and there is not sufficient criteria to pursue involuntary extension of inpatient treatment, patient will be discharged home this afternoon as is her request. Discharge plan has been discussed with the patient and her mother. Based on review of patient's case and their current presentation, risk of harm to self or others is no longer perceived to be acute. Management of symptoms on an outpatient basis seems the most appropriate and least restrictive setting. Pt seems appropriate for discharge with recommendation for consistent follow-up with outpatient psychiatric prescriber. therapist, and case assistant. Pt verbalized understanding of discharge plan reviewed and is agreeable with plan to be discharged home today. Day of Discharge Assessment Patient's case was reviewed and discussed during treatment team. Pt continues to appear restless and is withdrawn per staff, but she has been appropriate with interactions with staff. She has continued to deny suicidality and safety concerns. She participated in community meeting this morning, rating her mood an 8/10 and "nervous". Pt's 72-hour notice expires this afternoon at 12:40, she is requesting to leave today. Pt was seen today to assess readiness for discharge. Pt states she is "fine" today. She does state that she had been compliant with her outpatient medications, and will require a refill after discharge. Pt remains agreeable with outpatient follow-up at this time, and ongoing encouragement for compliance was reinforced. Pt denies any safety concerns surrounding discharge today and is still requesting discharge after lunch. While patient continues to demonstrate only vague commitment to her mental health treatment, she was agreeable with staff setting up both therapy and psychiatric medication management on an outpatient basis. She also completed an intake with the [facility] for case management services. She continues to deny SI and other safety concerns. While patient remains at elevated long-term risk of self harm (intentional or unintentional), there is no acute criteria for keeping patient beyond her 72-hour notice. ROS: Constitutional: denied Cardiovascular: denied Respiratory: denied Gastrointestinal: denied Neurological: denied Psychiatric: denies symptoms other than stated above Total of at least 10 systems reviewed, pertinent positives as above and in HPI. Transition of Care Transition Of Care Record: was reviewed with the patient Advance Directives Advance Directives Information Provided: Yes Advance Directives: No Mental Health Advance Directive: No Living Will: No Power of Plant Operations Coordinator: No Advance Directives Reason:: Declines as Mental Health Visit. Risk Factors Assessment Presenting risk factors reviewed on discharge. Precipitating stressors mitigated by: admission for inpatient psychiatric observation and treatment, appropriate adjustments to medications to target symptoms, involvement of outpatient supports, completion of a safety plan, discussion regarding substance abuse and effects on mental health diagnoses, and education on diagnoses. Pt has demonstrated improvement in condition with regard to verbalized improvement in mood and anxiety, resolution of SI, involvement of mother in safety planning, establishment of outpatient supports, and verbalized ability to contract for safety outside of the hospital. At this time, patient is requesting discharge and is no longer considered to be at acute risk of harm to herself. Pt will be discharged with recommendation for ongoing outpatient psychiatric treatment. Pt is at increased risk of harm to self or others when compared to the general population and there are several risk factors which are not likely to be mitigated in an inpatient treatment setting. Pt continues to be ambivalent a bout the role of substance use in her mental health treatment. Pt has continued to demonstrate limited commitment to her mental health treatment, refusing recommendation for case management - but she did agree to therapy and psychiatric services. Male: No : Yes Do You Have Access To A Gun?: No Health Problems: No Mental Health Diagnoses: Yes Substance Use Disorders: Yes Previous Attempt: No Family History of Suicide: No Previous Psychiatric Hospitalization: Yes Hopelessness: Yes Smoker: Yes Protective Factors Assessment [employer]an Beliefs: No : No Responsible for Young Children: No Employed: No Stable Relationships: No Supportive Family: Yes Good Rapport with Provider: No Tobacco Cessation at Discharge Tobacco Cessation Medication Prescribed at Discharge: Offered & Prescribed (Pt did accept and receive a prescription for nicotine gum) Total Time Total Time Spent: Greater Than 30 Minutes Total Time Includes: Examination of the patient, Discharge Planning, Medication Reconciliation and Communication with other providers Discharge Data Lab Results 09/19/19 09/19/19 09/19/19 21:06 21:06 21:32 WBC 6.05 RBC 4.10 L Hgb 13.1 Hct 39.3 MCV 95.9 MCH 32.0 MCHC 33.3 RDW Std Deviation 45.0 RDW Coeff of Maye 12.9 Plt Count 333 MPV 9.6 Immature Gran % (Auto) 0.2 Neut % (Auto) 67.8 Lymph % (Auto) 22.6 Dorado % (Auto) 8.4 Eos % (Auto) 0.8 Baso % (Auto) 0.2 Immature Gran # (Auto) 0.01 Neut # (Auto) 4.10 Lymph # (Auto) 1.37 Dorado # (Auto) 0.51 Eos # (Auto) 0.05 Baso # (Auto) 0.01 Sodium Potassium Chloride Carbon Dioxide Anion Gap BUN Creatinine Est Cr Clr Drug Dosing Est GFR ( Amer) Est GFR (Non-Af Amer) BUN/Creatinine Ratio Glucose Calcium Total Bilirubin AST ALT Alkaline Phosphatase Total Protein Albumin Globulin Albumin/Globulin Ratio TSH HCG, Qual Urine Color Yellow Urine Appearance Clear Urine pH 8.5 H Ur Specific Castleton 1.015 Urine Protein Negative Urine Glucose (UA) Negative Urine Ketones Negative Urine Blood 2+ H Urine Nitrite Negative Urine Bilirubin Negative Urine Urobilinogen Negative Ur Leukocyte Esterase Trace H Urine RBC 10-30 H Urine WBC 5-10 H Ur Epithelial Cells >30 H Urine Bacteria Negative Salicylates Urine Opiates Screen Neg Ur Methadone, Qual Neg Acetaminophen Urine Barbiturates Neg Ur Phencyclidine (PCP) Neg U Amphetamin/Meth Scrn Neg MDMA (Ecstasy) Screen Neg U Benzodiazepines Scrn Neg Ur Cocaine Metabolite Neg U Marijuana (THC) Screen Neg Ethyl Alcohol mg/dL 09/19/19 09/19/19 09/19/19 21:32 21:32 21:32 WBC RBC Hgb Hct MCV MCH MCHC RDW Std Deviation RDW Coeff of Maye Plt Count MPV Immature Gran % (Auto) Neut % (Auto) Lymph % (Auto) Dorado % (Auto) Eos % (Auto) Baso % (Auto) Immature Gran # (Auto) Neut # (Auto) Lymph # (Auto) Dorado # (Auto) Eos # (Auto) Baso # (Auto) Sodium 141 Potassium 3.9 Chloride 109 H Carbon Dioxide 26 Anion Gap 6.0 BUN 7 Creatinine 0.47 L Est Cr Clr Drug Dosing 147.7 Est GFR ( Amer) > 150.0 Est GFR (Non-Af Amer) 142.2 BUN/Creatinine Ratio 14.9 Glucose 93 Calcium 8.8 Total Bilirubin 0.2 AST 21 ALT 25 Alkaline Phosphatase 67 Total Protein 7.6 Albumin 3.8 Globulin 3.8 Albumin/Globulin Ratio 1.0 TSH 3.730 HCG, Qual Urine Color Urine Appearance Urine pH Ur Specific Castleton Urine Protein Urine Glucose (UA) Urine Ketones Urine Blood Urine Nitrite Urine Bilirubin Urine Urobilinogen Ur Leukocyte Esterase Urine RBC Urine WBC Ur Epithelial Cells Urine Bacteria Salicylates 1.9 L Urine Opiates Screen Ur Methadone, Qual Acetaminophen < 2 L Urine Barbiturates Ur Phencyclidine (PCP) U Amphetamin/Meth Scrn MDMA (Ecstasy) Screen U Benzodiazepines Scrn Ur Cocaine Metabolite U Marijuana (THC) Screen Ethyl Alcohol mg/dL 3.4 H 09/19/19 21:35 WBC RBC Hgb Hct MCV MCH MCHC RDW Std Deviation RDW Coeff of Maye Plt Count MPV Immature Gran % (Auto) Neut % (Auto) Lymph % (Auto) Dorado % (Auto) Eos % (Auto) Baso % (Auto) Immature Gran # (Auto) Neut # (Auto) Lymph # (Auto) Dorado # (Auto) Eos # (Auto) Baso # (Auto) Sodium Potassium Chloride Carbon Dioxide Anion Gap BUN Creatinine Est Cr Clr Drug Dosing Est GFR ( Amer) Est GFR (Non-Af Amer) BUN/Creatinine Ratio Glucose Calcium Total Bilirubin AST ALT Alkaline Phosphatase Total Protein Albumin Globulin Albumin/Globulin Ratio TSH HCG, Qual Negative Urine Color Urine Appearance Urine pH Ur Specific Cast[place] Urine Protein Urine Glucose (UA) Urine Ketones Urine Blood Urine Nitrite Urine Bilirubin Urine Urobilinogen Ur Leukocyte Esterase Urine RBC Urine WBC Ur Epithelial Cells Urine Bacteria Salicylates Urine Opiates Screen Ur Methadone, Qual Acetaminophen Urine Barbiturates Ur Phencyclidine (PCP) U Amphetamin/Meth Scrn MDMA (Ecstasy) Screen U Benzodiazepines Scrn Ur Cocaine Metabolite U Marijuana (THC) Screen Ethyl Alcohol mg/dL Hospital Course (1) Mood disorder: 09/19 -previous diagnoses include depression, bipolar disorder (per patient, not confirmed with records or by history), substance-induced mood and psychotic disorders, and rule out schizoaffective disorder bipolar type. Definitive diagnosis is limited by patient's poor participation in treatment and assessments, lack of access to records from other hospitalizations and outpatient care, and limited collateral information available currently, and she has not signed a release for her mother and stepfather. Her case is further complicated by her polysubstance abuse and noncompliance with treatment. -Patient has responded well to olanzapine in the past, but went off of it 2 weeks ago for unclear reasons. She is unwilling to participate in the assessment today, so we will start with reordering 5 mg every 6 hours as needed psychosis/mood instability. -If she agrees to resume the medication, we will need to check FLP and FG, as I cannot find any record of these in our system. -Provide psychoeducation regarding her diagnoses and the treatment recommendations, encouraged her to attend and participate in groups and therapy, work on healthy coping skills and discharge safety plan, and schedule family meeting with parents. -Request records from [facility] where she was hospitalized last month, and from outpatient providers. Coordinate care with her BCM, Natali Marion. Collateral information from family would be helpful, but she has cannot yet been willing to sign a release. 09/20 - Pt continues to decline scheduled doses of her psychiatric medications, but has been intermittently requesting prns - Due to concern for losing access to medications after discharge, patient did verbalize willingness for an outpatient psychiatric prescriber during encounter today - social work informed - 72-hour notice expires on 09/22 at 1240 09/21 - Pt continues to be agreeable with referral for a psychiatric provider. States she would agree to a case assistant if unable to schedule a psychiatric appointment - social work attempting referrals for ongoing outpatient medication management. - Pt requesting discharge tomorrow, 72-hour notice expires tomorrow at 1240 and patient is unwilling to rescind (2) Anxiety: 09/19 -good response to propanolol in the past, will offer 10 mg 3 times daily as needed. Also has hydroxyzine as needed. 09/20 - As above, patient continues to request prn medications intermittently (3) Polysubstance abuse: 09/19 -elevated blood alcohol level on presentation; patient reported drinking 2 beers in an effort to calm herself down. Last known methamphetamine use was approximately 4 months ago, and was abusing alprazolam, cannabis, and prescription stimulants 3 months ago. Patient is not a reliable historian and claims that she has been sober for 12 months. Get collateral information from family. Avoid prescription of controlled substances given the high risk of abuse/misuse/negative outcomes. -Outpatient follow-up previously arranged at [facility]; unclear whether patient followed through with this. Mental Health & Subst Abuse Tx Psychiatrist Name of Psychiatrist: Floyd Mack Psychiatrist's Date of Appointment with Psychiatrist: 09/27/19 Time of Appointment with Psychiatrist: 9:30 and 10:00 - 2 separate calls Psychiatric Appointment Comment: 9:30 call with Twila for intake; 10:[address] Mack Psychiatrletha Release of Information: Obtained, Reviewed and Signed Therapist Name of Therapist: [facility] Date of Therapist Appointment: 10/06/19 Time of Therapist Appointment: 11:30am Therapy Appointment Comment: [address], [address], [place] [address] Therapist Release of Information: Obtained, Reviewed and Signed Sales Host Name of Sales Host: [facility] - Ashwini to follow-up Phone Number for Sales Host: [phone] Case Management Appointment Comment: [facility] will follow-up to complete intake and assign case assistant Sales Host Release of Information: Obtained, Reviewed and Signed Post Discharge Appointments Primary Care Physician Name Of Family Doctor: Radha Sinha Primary Care Provider Appointment Comment: follow-up as needed Primary Care Release of Information: Obtained, Reviewed and Signed Smoking Cessation Counseling Tobacco Cessation Medication Prescribed at Discharge: Offered & Prescribed (Pt did accept and receive a prescription for nicotine gum) Contact Information Contact Information Comment: [email or web address] Discharge Plan Discharge Items Patient Disposition: Home - Self-Care Reason For Visit: DEPRESSION NOS Discharge Diagnosis: - Mood disorder - Anxiety disorder - Polysubstance abuse Activity: Resume your previous activity Non-emergency contact: Primary Care Provider, Psychiatrist and Therapist Call non-emergency contact if: you have any medication questions and your symptoms worsen Follow-up/Referrals: Radha Thomas, [Primary Care Provider] - Diet: Regular Addtl Attending Provider Instructions: SPECIAL CARE INSTRUCTIONS: 1. Follow through with your scheduled aftercare appointments. If unable to keep an appointment, please call to reschedule. 2. Take your medication only as prescribed. Medication should not be changed or stopped without the approval of your doctor. In the event of worsening symptoms or concerns about side effects, contact your doctor immediately. 3. Utilize new healthy coping skills, anger management skills, and stress management skills learned during your hospitalization. Journal feelings and process them with a support person. Identify stressors or situations that may result in relapse, deterioration or inappropriate behaviors and develop a plan to deal with those issues. 4. If your coping skills are ineffective and you are in crisis, contact your outpatient providers for direction. If unable to reach your providers, please call the CAN HELP LINE AT or go to the closest Emergency Room. 5. Avoid alcohol and un-prescribed drugs. 6. You have been provided with the Mental Health Advance Directives Pamphlet for your review. AFTERCARE APPOINTMENTS: * Please call your insurance company prior to your scheduled appointment to confirm your aftercare providers are covered. Take your insurance information to your appointments. WHO TO CALL AND WHEN: Medical Emergencies: For questions or emergencies related to your hospital stay, please contact the Inpatient Behavioral Health Unit at [phone]. A speech and language clinician is on-call 19/01 for the Behavioral Health Unit for emergencies At any time you feel your situation is an emergency, you may also call 911 immediately. Your Discharge Instructions noted above were prepared by provider Sheyla Singer PA-C. Pending Studies at Discharge: No Stand-Alone Forms: My [facility], Smoking Cessation, Suicide Prevention Resources Medications and DC Order Prescriptions: New olanzapine 5 mg Tablet 5 mg PO Q6H PRN (Reason: agitation/psychosis) 14 Days Qty: 14 RF: 0 propranolol 10 mg Tablet 10 mg PO TID PRN (Reason: anxiety) 14 Days Qty: 30 RF: 0 nicotine (polacrilex) [Nicorelief] 2 mg Gum 2 mg MT PRN PRN (Reason: nicotine cravings) Qty: 100 RF: 0 Discontinued propranolol 10 mg Tablet 10 mg PO TID Qty: 45 RF: 0 olanzapine 5 mg Tablet 5 mg PO HS Qty: 15 RF: 0 Discharge Orders: Discharge Order (Routine); Ordered 09/23/19 Ordered By: Sheyla Singer Admission Data Admit Date/Time: 09/20/19 00:13 Attending Provider: Jacqueline Snowden Admit Provider: Estelita Oakley Primary Care Provider: Radha Thomas Other Interventions: Discharge Summary Assessment (RN) Last Done: 09/23/19 11:31 PSY Interdisciplinary Discharge Planning Last Done: 09/23/19 11:30 Coding Level of Care Code 98974 D/C day mgmt > 30 min Diagnoses Mood disorder F39 Anxiety F41.9 Polysubstance abuse F19.10
== END 2019-09-23 12:28 | disposition home or self-care (01) | DRG 885 ==
LOC: ED 20:53 → 3S 09-20 00:13